=== PATIENT | female | born 1950 | race Caucasian/White ===

== ENCOUNTER 2020-09-09 08:00 | Outpatient (CLI) | payer MEDICARE, BC, SELFPAY | END 2020-09-09 08:01 | disposition home or self-care (01) | LOC: ANHCOVIDVC 08:00 | PROVIDERS: PCP Nurse Practitioner | DX: Z23 Encounter for immunization (principal) | CPT/HCPCS: 0001A; 91300 ==

== ENCOUNTER 2020-09-30 08:02 | Outpatient (CLI) | payer MEDICARE, BC, SELFPAY | END 2020-09-30 08:03 | disposition home or self-care (01) | LOC: ANHCOVIDVC 08:02 | PROVIDERS: PCP Nurse Practitioner | DX: Z23 Encounter for immunization (principal) | CPT/HCPCS: 0002A; 91300 ==

== ENCOUNTER 2022-02-06 10:03 | Outpatient (CLI) | payer MEDICARE, BC, SELFPAY ==
[2022-02-06 20:55] LABS: Alanine Aminotransferase 35 U/L (6-35); Albumin Level 4.4 g/dL (3.5-5.1); Alkaline Phosphatase 81 U/L (38-126); Anion Gap 9 mmol/L (8-16); Aspartate Amino Transferase 48 U/L (14-36); Bilirubin,Total 0.3 mg/dL (0.2-1.3); Blood Urea Nitrogen 12 mg/dL (7-17); Calcium 9.1 mg/dL (8.4-10.2); Carbon Dioxide 28 mmol/L (22-30); Chloride 103 mmol/L (98-107); Cholesterol 210 mg/dL (0-200); Estimated Glomerular Filt Rate 55; Glucose 129 mg/dL (65-110); HDL Direct 109 mg/dL; Potassium 4.5 mmol/L (3.4-5.0); Sodium 140 mmol/L (137-145); Triglycerides 107 mg/dL (<150)
[2022-02-06 20:57] LABS: Basophils Absolute Auto 0.1 K/mm3 (0.0-0.1); Basophils Percent Auto 1.1 % (0.2-1.2); Eosinophils Absolute Auto 0.3 K/mm3 (0-0.3); Eosinophils Percent Auto 6.1 % (0-4.4); Hematocrit 39.4 % (37.0-47.0); Hemoglobin 12.4 g/dL (12.0-15.0); Immature Granulocyte Absolute 0.02 K/mm3 (0.00-0.031); Immature Granulocyte Percent A 0.4 % (0-0.5); Lymphocytes Absolute Auto 1.94 K/mm3 (0.9-3.2); Lymphocytes Percent Auto 36.1 % (18.3-44.2); Mean Corpuscular HGB Conc 31.5 g/dl (32-36); Mean Corpuscular Volume 92.3 fl (80-100); Mean Platelet Volume 10.8 fl (7.4-10.4); Monocytes Absolute Auto 0.5 K/mm3 (0.1-0.6); Monocytes Percent Auto 9.3 % (2.6-8.5); Neutrophils Absolute Auto 2.5 K/mm3 (1.3-6.7); Platelet Count Result 249 k/mm3 (150-375); Red Blood Count 4.27 M/mm3 (4.2-5.4); Red Cell Distribution Width 14.2 % (11.5-14.5); White Blood Count 5.4 K/mm3 (4.5-10.0)
[2022-02-06 21:10] LABS: LDL Cholesterol Direct 62 mg/dL
[2022-02-06 21:52] LABS: Hemoglobin A1C 6.4 % (<5.7)
== END 2022-02-06 10:04 | disposition home or self-care (01) ==
PROVIDERS: PCP Family Medicine; Visit Provider Family Medicine
DX: R73.03 Prediabetes (principal); I10 Essential (primary) hypertension; E78.5 Hyperlipidemia, unspecified
CPT/HCPCS: 36415; 80053; 80061; 83036; 85025

== ENCOUNTER → 2022-02-07 08:35 | Outpatient (CLI) | payer MEDICARE, BC, SELFPAY ==
--- NOTE | ~2022-02-07 | MR_ITS ---
EXAMINATION: MR lumbar spine wo con DATE: 02/07/2022 09:05 INDICATION: Lumbar radicular pain TECHNIQUE: Magnetic resonance imaging (MRI) of the lumbar spine was performed without intravenous con trast. Sequences included sagittal T2-weighted FSE, sagittal T2-weighted FS FSE, sagittal T1-weighted FSE, and axial T2-weighted FSE. COMPARISON: 03/20/2019 FINDINGS: 14 degrees lumbar levoscoliosis. 2 mm retrolisthesis L1 on L2, L2 on L3 and L3 on L4 chronic minimal anterior wedging at T11. 4 caudal thoracic and lumbar vertebral body heights are normal. Chronic Schm orl's node along the superior endplate of L4. Severe disc height loss with degenerative endplate anthony ges at L4-L5. Moderate left-sided predominant disc height loss at L2-L3 and L3-L4. Mild disc height l oss at T11-T12 and L1-L2. Marrow signal is normal aside from mild fibrofatty and fibrovascular degene rative endplate changes at a few levels in the lumbar and lower thoracic spine. The conus medullaris terminates at the cephalad aspect of L1. There is normal signal in the caudal spinal cord. Paraverteb ral soft tissues are unremarkable. The following disc levels are specifically discussed: T11-T12: Disc is mildly bulging. There is mild left and moderate right facet osteoarthritis. There is no neural foraminal stenosis. There is minimal central canal stenosis. T12-L1: Disc is mildly bulging. There is mild bilateral facet joint osteoarthritis. There is no neura l foraminal stenosis. There is minimal central canal stenosis. L1-L2: Disc is mildly bulging. There is mild right facet joint osteoarthritis. There is mild bilatera l neural foraminal stenosis. There is mild central canal stenosis. L2-L3: Disc is bulging. There is mild bilateral facet joint osteoarthritis. There is mild bilateral, right greater than left neural foraminal stenosis. There is mild central canal stenosis. L3-L4: Disc is bulging. There is mild left and mild to moderate right facet joint osteoarthritis. The re is mild left and mild to moderate right neural foraminal stenosis. There is mild to moderate centr al canal stenosis. L4-L5: Disc is mildly bulging. There is moderate bilateral facet joint osteoarthritis. There is moder ate bilateral neural foraminal stenosis. There is mild to moderate central canal stenosis. L5-S1: Disc is mildly bulging. There is moderate right and severe left facet joint osteoarthritis. Th ere is mild left neural foraminal stenosis. There is mild central canal stenosis. IMPRESSION: 1. Mild lumbar levoscoliosis with interval progression in moderate to severe lumbar spondylosis. Reviewed, dictated and finalized at location A. IMPRESSION: 1. Mild lumbar levoscoliosis with interval progression in moderate to severe ainsley mbar spondylosis.
== END ==
PROVIDERS: Visit Provider Nurse Practitioner Family
DX: M41.86 Other forms of scoliosis, lumbar region (principal); M47.816 Spondylosis without myelopathy or radiculopathy, lumbar region
CPT/HCPCS: 72148

== ENCOUNTER → 2022-08-03 11:06 | Outpatient (CLI) | payer MEDICARE, BC, SELFPAY ==
--- NOTE | ~2022-08-03 | MM_ITS ---
EXAMINATION: MM screening manju BI w gama HISTORY: Screening mammogram TECHNIQUE: Craniocaudal and mediolateral oblique 3-D tomosynthesis images were obtained and synthetic 2-D images were generated. CAD analysis was submitted and interpreted. COMPARISON: August 01, 2018, July 30, 2017, October 06, 2015 bilateral screening mammogram examinat ions BREAST PARENCHYMAL COMPOSITION: There are scattered areas of fibroglandular density. FINDINGS: There is no evidence of suspicious mass, calcification, or architectural distortion to sugg est malignancy in either breast. There has been no suspicious interval change. IMPRESSION: 1. No mammographic evidence of malignancy. 2. Recommend routine screening mammography in one year. BI-RADS Category 1: Negative Reviewed, dictated and finalized at location A. 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
--- NOTE | ~2022-08-03 | DEXA_ITS ---
Bone Density Report Name: MOHINI BELTRE Age: 72 Sex: Female Ethnicity: White Date of : 1950 Indication: postmenopausal; screening for osteoporosis; parental hip fracture; height loss; history of glucocorticoids; hysterectomy; Referring Provider: Sharron Blackwell Study: Bone densitometry was performed. Exam Date: August 03, 2022 Accession number: [id number] Bone Density: Region BMD T-score Z-score Classification AP Spine (L1-L4) 0.876 -1.6 0.7 Osteopenia Femoral Neck (Left) 0.586 -2.4 -0.5 Osteopenia Total Hip (Left) 0.871 -0.6 1.0 Normal Femoral Neck (Right) 0.683 -1.5 0.4 Osteopenia Total Hip (Right) 0.889 -0.4 1.2 Normal Total Hip Mean 0.880 -0.5 1.1 Normal World Health Organization criteria for BMD impression classify patients as: Normal (T-score at or above -1.0), Osteopenia (T-score between -1.0 and -2.5), or Osteoporosis (T-score at or below -2.5). 10-year Fracture Risk(1): Major Osteoporotic Fracture 32% Hip Fracture 15% Reported Risk Factors: [place] (), Neck BMD=0.586, BMI=37.3, parental fracture, glucocorticoids (1) FRAX(R) Version 3.08. Fracture probability calculated for an untreated patient. Fracture probability may be lower if the patient has received treatment. Clinical Information Provided by Patient: Parent has had a hip fracture Has taken Glucocorticoids Has used the following medications: Vitamin D, Calcium Has the following medical conditions: Hysterectomy Patient maximum height was 61.5 Menopause Age: 32 No regular weight bearing exercise Does not regularly consume dairy products Drinks caffeinated beverages Onset of menses at age 11 Number of children 2 Impression: The patient has low bone mass, based on the Left Femoral Neck T-score. The patient has an estimated ten-year risk of hip fracture of 15% and an estimated ten-year risk of major fracture of 32%, based on the WHO FRAX algorithm. The patient has risk factors, including: parental hip fracture, history of glucocorticoid therapy. Discussion: BONE DENSITY IS LOW AT ONE OR MORE SKELETAL SITES. THE PATIENT'S BMD AND CLINICAL RISK FACTORS CONTRIBUTE TO THIS PATIENT'S HIGH RISK OF FRACTURE. This patient's lowest T-score is low at one or more skeletal sites. It meets the World Health Organization's (WHO) criteria for ?low bone mass? (T-score between -1.0 and -2.5). The patient's 10-year risk of hip fracture and 10 year risk of a major osteoporotic fracture as calculated by FRAX exceeds the threshold where pharmacological therapy is recommended by the National Osteoporosis Foundation (NOF). However, all treatment decisions require clinical judgment and consideration of individual patient factors, including patient preferences, comorbidities, previous drug use, risk factors not captured in the FRAX mo
== END ==
PROVIDERS: PCP Family Medicine; Visit Provider Nurse Practitioner
DX: Z12.31 Encounter for screening mammogram for malignant neoplasm of breast (principal); Z78.0 Asymptomatic menopausal state; M85.89 Other specified disorders of bone density and structure, multiple sites
CPT/HCPCS: 77063; 77067; 77080

== ENCOUNTER 2022-08-10 11:13 | Outpatient (CLI) | payer MEDICARE, BC, SELFPAY ==
[2022-08-10 12:31] LABS: Kit Draw Collected
== END 2022-08-10 11:14 | disposition home or self-care (01) ==
LOC: ANHGOSHLAB 11:14
PROVIDERS: PCP Family Medicine; Visit Provider Nurse Practitioner
DX: R73.03 Prediabetes (principal); I10 Essential (primary) hypertension; E78.5 Hyperlipidemia, unspecified
CPT/HCPCS: 36415

== ENCOUNTER 2023-02-08 09:02 | Outpatient (CLI) | payer MEDICARE, BC, SELFPAY ==
[2023-02-08 18:23] LABS: Basophils Absolute Auto 0.1 K/mm3 (0.0-0.1); Basophils Percent Auto 1.3 % (0.2-1.2); Eosinophils Absolute Auto 0.3 K/mm3 (0-0.3); Eosinophils Percent Auto 5.1 % (0-4.4); Hematocrit 40.6 % (37.0-47.0); Hemoglobin 12.8 g/dL (12.0-15.0); Immature Granulocyte Absolute 0.01 K/mm3 (0.00-0.031); Immature Granulocyte Percent A 0.2 % (0-0.5); Lymphocytes Absolute Auto 1.79 K/mm3 (0.9-3.2); Lymphocytes Percent Auto 32.8 % (18.3-44.2); Mean Corpuscular HGB Conc 31.5 g/dl (32-36); Mean Corpuscular Hemoglobin 29.4 pg (26-34); Mean Corpuscular Volume 93.1 fl (80-100); Mean Platelet Volume 10.9 fl (7.4-10.4); Monocytes Absolute Auto 0.6 K/mm3 (0.1-0.6); Monocytes Percent Auto 10.6 % (2.6-8.5); Neutrophils Absolute Auto 2.7 K/mm3 (1.3-6.7); Platelet Count Result 246 k/mm3 (150-375); Red Blood Count 4.36 M/mm3 (4.2-5.4); Red Cell Distribution Width 13.5 % (11.5-14.5); White Blood Count 5.5 K/mm3 (4.5-10.0)
[2023-02-08 18:39] LABS: LDL Cholesterol Direct 61 mg/dL
[2023-02-08 18:48] LABS: Alanine Aminotransferase 26 U/L (6-35); Albumin Level 4.5 g/dL (3.5-5.1); Alkaline Phosphatase 80 U/L (38-126); Anion Gap 11 mmol/L (8-16); Aspartate Amino Transferase 39 U/L (14-36); Bilirubin,Total 0.5 mg/dL (0.2-1.3); Blood Urea Nitrogen 28 mg/dL (7-17); Calcium 10.4 mg/dL (8.4-10.2); Carbon Dioxide 26 mmol/L (22-30); Chloride 101 mmol/L (98-107); Cholesterol 195 mg/dL (0-200); Estimated Glomerular Filt Rate 44; Glucose 116 mg/dL (65-110); Potassium 3.5 mmol/L (3.4-5.0); Sodium 138 mmol/L (137-145); Triglycerides 88 mg/dL (<150)
[2023-02-08 18:49] LABS: HDL Direct 111 mg/dL
[2023-02-08 19:11] LABS: Hemoglobin A1C 5.7 % (<5.7)
[2023-02-13 10:41] LABS: Vitamin D 1,25 (OH)2 Total 38 pg/mL (18-72); Vitamin D2 1,25 (OH)2 <8 pg/mL; Vitamin D3 1,25 (OH)2 38 pg/mL
== END 2023-02-08 09:03 | disposition home or self-care (01) ==
PROVIDERS: PCP Family Medicine; Visit Provider Nurse Practitioner Family
DX: E55.9 Vitamin D deficiency, unspecified (principal); I10 Essential (primary) hypertension; R73.03 Prediabetes; E78.5 Hyperlipidemia, unspecified
CPT/HCPCS: 36415; 80053; 80061; 82652; 83036; 85025

== ENCOUNTER 2023-04-16 10:21 | Outpatient (CLI) | payer MEDICARE, BC, SELFPAY ==
--- NOTE | ~2023-04-16 | CT_ITS ---
Clinical Indication: Chest pain CT Scan of the Chest with Contrast: Technique: Contiguous sections were acquired throughout the chest after intravenous administration of 100 cc of Omnipaque 350. Dose reduction technique was used on this scan by utilizing automated expos ure control and iterative reconstruction technique. The dose-length product (DLP) was 631.87 mGy-cm. Findings: There is no evidence of any significant mediastinal, hilar or axillary lymphadenopathy. There is no f illing defect in the pulmonary arterial tree to suggest pulmonary embolus. There is no evidence of ao rtic dissection or aneurysm. No pericardial effusion. Small right pleural effusion and minimal left pleural effusion are present.. There is patchy groundglass pulmonary disease with mild interlobar septal thickening, consistent with pulmonary edema. Images through the upper abdomen reveal moderate to large hiatal hernia. Impression: Mild to moderate pulmonary edema. Small right pleural effusion and minimal left pleural effusion. No pulmonary embolus. Reviewed, dictated and finalized at [facility]. Impression: Mild to moderate pulmonary edema. Small right pleural effusion and minimal left pleural effusion. No pulmonary embolus.
--- NOTE | ~2023-04-16 | XR_ITS ---
Clinical Indication: Shortness of breath PA and lateral views of the chest: Comparison: 07/20/2018 Findings: There is central congestive change with probable minimal central pulmonary edema and minima l bilateral pleural effusions.. Cardiomediastinal silhouette is within normal limits. Bones and soft tissues are unremarkable. Impression: Central congestive change with minimal central pulmonary edema and minimal pleural effusions. Reviewed, dictated and finalized at location . Impression: Central congestive change with minimal central pulmonary edema and minimal pleu ral effusions.
[2023-04-16 11:15] LABS: Estimated Glomerular Filt Rate 49
== END 2023-04-16 10:22 ==
PROVIDERS: PCP Nurse Practitioner Family; Visit Provider Nurse Practitioner Family
DX: R06.02 Shortness of breath (principal); J81.1 Chronic pulmonary edema; J90 Pleural effusion, not elsewhere classified
CPT/HCPCS: 71046; 71275; Q9967

== ENCOUNTER 2023-04-16 11:29 | Outpatient (CLI) | payer MEDICARE, BC, SELFPAY ==
[2023-04-16 12:52] LABS: D Dimer 1.38 ug/mL (<0.48)
[2023-04-16 13:06] LABS: NT Pro B Type Natriuretic Pept 2540 pg/mL (19.9-100)
== END 2023-04-16 11:30 | disposition home or self-care (01) ==
PROVIDERS: PCP Nurse Practitioner Family; Visit Provider Nurse Practitioner Family
DX: R07.9 Chest pain, unspecified (principal); R06.02 Shortness of breath
CPT/HCPCS: 36415; 83880; 85380

== ENCOUNTER 2023-04-16 12:39 | Inpatient (IN) | payer MEDICARE, BC, SELFPAY ==
[2023-04-16] VITALS (13 sets, daily range): BP systolic 130–217; BP diastolic 46–87; PULSE 54–80; RESP 17–21; TEMP 36.3–36.6; O2SAT 88–97; BMI 37.1; BMI 38.7
--- NOTE | ~2023-04-16 | US_ITS ---
EXAMINATION: US venous doppler [facility] DATE: 04/17/2023 16:43 INDICATION: Chest pain. TECHNIQUE: Grayscale ultrasound images without and with compression and Doppler ultrasound images of the bilateral lower extremity veins were obtained. COMPARISON: None. FINDINGS: The visualized portions of right common femoral vein, profunda (deep) femoral vein, femoral vein, pop liteal vein, peroneal veins, posterior tibial veins, and greater saphenous vein outflow are patent. The visualized portions of left common femoral vein, profunda femoral vein, femoral vein, popliteal v ein, peroneal veins, posterior tibial veins, and greater saphenous vein outflow are patent. IMPRESSION: 1. No deep venous thrombosis. Reviewed, dictated and finalized at location E.
--- NOTE | ~2023-04-16 | NM_ITS ---
EXAMINATION: NM bianca stress w perfusion DATE: 04/18/2023 11:34 INDICATION: Chest pain. Congestive heart failure. TECHNIQUE: Rest images were obtained following intravenous administration of 9.4 mCi Tc99m tetrofosmi n (Myoview). The patient was infused intravenously with Lexiscan (regadenoson). Then, 31.1 mCi Tc99m tetrofosmin (Myoview) was administered intravenously, and supine and prone stress images were obtaine d. Data was reconstructed into short axis and horizontal and vertical long axis SPECT images. Gated S PECT images were also obtained. COMPARISON: Chest CT 04/16/2023 FINDINGS: There is no definite reversible or fixed perfusion abnormality to suggest ischemia or infar ction. There is no segmental wall motion abnormality. Left ventricular ejection fraction measures 6 3%. IMPRESSION: 1. No definite ischemia or infarct. 2. Normal left ventricular ejection fraction measuring 63%. Reviewed, dictated and finalized at location E.
--- NOTE | 2023-04-16 12:40 | ECG_ITS ---
Measurements Intervals [place] Rate: 59 P: 67 MT: 143 QRS: 32 QRSD: 89 T: 43 QT: 468 QTc: 465 Interpretive Statements SINUS BRADYCARDIA POSSIBLE LEFT ATRIAL ENLARGEMENT [-0.1mV P WAVE IN V1/V2] NO PREVIOUS ECG AVAILABLE FOR COMPARISON Electronically Signed On 04-16-2023 19:58:11 CDT by Evelyn Christopher M.D.
[2023-04-16 13:13] LABS: Basophils Absolute Auto 0.1 K/mm3 (0.0-0.1); Eosinophils Absolute Auto 0.3 K/mm3 (0-0.3); Eosinophils Percent Auto 4.2 % (0-4.4); Hematocrit 38.7 % (37.0-47.0); Hemoglobin 11.9 g/dL (12.0-15.0); Immature Granulocyte Absolute 0.07 K/mm3 (0.00-0.031); Lymphocytes Absolute Auto 2.04 K/mm3 (0.9-3.2); Lymphocytes Percent Auto 27.9 % (18.3-44.2); Mean Corpuscular HGB Conc 30.7 g/dl (32-36); Mean Corpuscular Hemoglobin 28.7 pg (26-34); Mean Corpuscular Volume 93.3 fl (80-100); Monocytes Absolute Auto 0.7 K/mm3 (0.1-0.6); Monocytes Percent Auto 9.3 % (2.6-8.5); Neutrophils Absolute Auto 4.2 K/mm3 (1.3-6.7); Neutrophils Percent Auto 56.6 % (45.5-73.1); Platelet Count Result 262 k/mm3 (150-375); Red Blood Count 4.15 M/mm3 (4.2-5.4); Red Cell Distribution Width 13.6 % (11.5-14.5); White Blood Count 7.3 K/mm3 (4.5-10.0)
[2023-04-16 13:31] LABS: Alanine Aminotransferase 101 U/L (6-35); Albumin Level 4.3 g/dL (3.5-5.1); Alkaline Phosphatase 113 U/L (38-126); Anion Gap 7 mmol/L (8-16); Aspartate Amino Transferase 32 U/L (14-36); Bilirubin,Total 0.7 mg/dL (0.2-1.3); Blood Urea Nitrogen 17 mg/dL (7-17); Calcium 9.4 mg/dL (8.4-10.2); Carbon Dioxide 28 mmol/L (22-30); Chloride 100 mmol/L (98-107); Estimated CRCL calculation 45 ml/min; Estimated Glomerular Filt Rate 55; Glucose 114 mg/dL (65-110); Lipase 78 U/L (23-300); Sodium 135 mmol/L (137-145)
[2023-04-16 13:37] LABS: Prothrombin Time 13.9 Seconds (11.1-14.7)
[2023-04-16 13:39] LABS: Partial Thromboplastin Time 29.8 SECONDS (22.3-36.8)
[2023-04-16 13:42] LABS: Troponin I 0.034 ng/mL (0.000-0.034)
--- NOTE | 2023-04-16 15:37 | ED.CHESTPAIN ---
HPI - Chest Pain General Chief Complaint: Chest Pain Stated Complaint: CP, SOB Time Seen by Provider: 04/16/23 14:26 History of Present Illness HPI narrative: 72-year-old female presented to the emergency department for evaluation of sternal chest pain. Patient also reports worsening exertional shortness of breath over the course of the last few weeks. Patient did have follow-up with her primary care physician and they were considering that she had CHF. Patient has no prior diagnosis of CHF. Patient has no prior cardiac history Related Data Home Medications Medication Instructions Recorded Confirmed cholecalciferol (vitamin D3) 50 100 mcg PO DAILY 02/19/23 04/16/23 mcg (2,000 unit) capsule ascorbic acid (vitamin C) 1,000 mg 1 g PO DAILY 03/27/23 04/16/23 capsule losartan 50 mg tablet 75 mg PO DAILY 03/27/23 04/16/23 mecobalamin (vitamin B12) 5,000 mcg PO 03/27/23 04/16/23 mcg disintegrating tablet albuterol sulfate 90 mcg/actuation 2 puff inhalation Q8H PRN 04/16/23 04/16/23 aerosol inhaler Shortness Of Breath Or Wheezing Allergies Allergy/AdvReac Type Severity Reaction Status Date / Time clavulanic acid Allergy Severe vomiting, Verified 04/16/23 08:46 [From Augmentin] diarrhea yellow fever vaccine live Allergy Severe SWELLING, Verified 04/16/23 08:46 JOINT PAIN clindamycin Allergy Intermediate Unknown Verified 04/16/23 08:46 latex Allergy Mild Swelling Verified 04/16/23 08:46 amoxicillin Allergy Unknown Unknown Verified 04/16/23 08:46 tetanus and diphtheria Allergy Unknown Unknown Verified 04/16/23 08:46 toxoids Tetanus Vaccines and Toxoid Allergy Unknown Unknown Verified 04/16/23 08:46 Review of Systems Review of Systems: All systems reviewed & are unremarkable except as noted in HPI and below PMFSH Past Medical History Medical History Anxiety Chronic lumbar pain HLD (hyperlipidemia) (~2001) Hypertension Migraines (~1991) Osteoarthritis, multiple sites Prediabetes (~2018) Stage 3 chronic kidney disease (~2018) Surgical History Surgical History Entrapment of right ulnar nerve at elbow (~2015) H/O arthroscopic knee surgery (~2002) left and right knee H/O: hysterectomy (~1983) w/ left oophorectomy History of carpal tunnel surgery of right wrist (~2015) History of cataract surgery (~2015) bilateral Family History Family History Mother , @ 92 Family history of elevated blood lipids Hypertension Father , @ 73 Family history of throat cancer Family history of malignant neoplasm of esophagus Sibling , @ 67 Hepatitis C Social History Social History Social History: , lives alone. One daughter, several grandchildren. She enjoys traveling with her sister, usually long car trips across the country. They travel several times a year. Caffeine- occasionally Smoking status: Never smoker Second hand tobacco smoke exposure: Yes (Dad smoked when she was a kid) Alcohol intake: never Substance use: never Substance use type: does not use Lack of Transportation: No Lack of Food: Never True Current Housing: I Have Housing Concerned About Future Housing: No Difficulty Paying Gas/Electric Bills: No Difficulty Paying for Meds: No Currently Unemployed: No Education: High School Diploma/GED Difficulty w/ Childcare or Family Care: No Living arrangements: with family Additional living arrangements comments: Sister Occupation/Education: retired Gender identity (if verbalized by the patient): Female Exam Narrative: APPEARANCE: Well appearing, no pain, no distress, well-nourished. HEAD: normocephalic, atraumatic. EYES: PERRLA/EOMI, conjunctivae clear. NOSE: Normal no drainage NECK: [place]
[2023-04-16 15:43] LABS: NT Pro B Type Natriuretic Pept 2600 pg/mL (19.9-100)
[2023-04-16] MEDS: FUROSEMIDE INJ 40 MG/4 ML VIAL IV PUSH (16:35)
[2023-04-16] MEDS: KETOROLAC 15 MG/ML VIAL (*BKC) IV PUSH (16:36)
[2023-04-16 17:12] LABS: Troponin I 0.035 ng/mL (0.000-0.034)
[2023-04-16] MEDS: NITROGLYCERIN OINTMENT 1 INCH DOSE TRANSDERM (18:04)
--- NOTE | 2023-04-16 19:55 | PM.IMHP ---
H&P: HPI History of Present Illness Date/Time: 04/16/23 19:55 Chief Complaint: chest pain Narrative: This is a 72-year-old female with past medical history significant for anxiety, chronic lumbar pain, dyslipidemia, hypertension, migraine headache, osteoarthritis, chronic kidney disease. Patient presents to the emergency room due to retrosternal chest pain rate set at 9/10 intensity nonradiating no nausea no vomiting no dizziness no lightheadedness no syncope or near syncope. Patient returns from a trip to [place] she had been seen at the at the urgent care due to cough and shortness of breath was given a breathing treatment. Patient also had a fever at around that time which has not repeat. Has had a cough which is nonproductive. Pain is worse with deep inspiration, patient received breathing treatment in the emergency room. Was rule out for acute pulmonary embolism with CT angiogram of the chest. Clinical Indication: Shortness of breath ?PA and lateral views of the chest: Comparison: 07/20/2018 Findings: There is central congestive change with probable minimal central pulmonary edema and minimal bilateral pleural effusions..? Cardiomediastinal silhouette is within normal limits. Bones and soft tissues are unremarkable. ? Impression: ? Central congestive change with minimal central pulmonary edema and minimal pleural effusions. [address] [place] [address] CT Scan Report Signed Patient: Ashlie Lees : 1950 MR#: [id number] Age/Sex: 72 / F Acct:[id number] Loc: [facility]? ? ADM Date: 04/16/23Attending Dr: Sharron Esquivel APRN Ordering Physician: Sharron Esquivel APRN Date of Service: 04/16/23 Procedure(s): CTA chest PE protocol Accession Number(s): [id number] cc: Sharron Esquivel APRN~ Clinical Indication: Chest pain CT Scan of the Chest with Contrast: Technique: Contiguous sections were acquired throughout the chest after intravenous administration of 100 cc of Omnipaque 350. Dose reduction technique was used on this scan by utilizing automated exposure control and iterative reconstruction technique. The dose-length product (DLP) was 631.87 mGy-cm. Findings: There is no evidence of any significant mediastinal, hilar or axillary lymphadenopathy. There is no filling defect in the pulmonary arterial tree to suggest pulmonary embolus. There is no evidence of aortic dissection or aneurysm. No pericardial effusion. Small right pleural effusion and minimal left pleural effusion are present.. There is patchy groundglass pulmonary disease with mild interlobar septal thickening, consistent with pulmonary edema. Images through the upper abdomen reveal moderate to large hiatal hernia. Impression: Mild to moderate pulmonary edema. Small right pleural effusion and minimal left pleural effusion. No pulmonary embolus. ekg Rate 59 AR 143 QRSd 89 QT 468 QTc 465 --[place]-- P 67 QRS 32 T 43 SINUS BRADYCARDIA POSSIBLE LEFT ATRIAL ENLARGEMENT [-0.1mV P WAVE IN V1/V2] NO PREVIOUS ECG AVAILABLE FOR COMPARISON Electronically Signed On 04-16-2023 19:58:11 CDT by Evelyn Campastiven Review of Systems Review of Systems: Cough, retrosternal chest pain. Constitutional: Constitutional: Denies chills, Denies fatigue, Reports fever(s) (X1 a week ago), Denies malaise, Denies poor appetite and Denies weakness Eyes: Eyes: Denies change in vision ENT: Denies dysphagia, Denies vertigo, Denies dizziness and Denies odynophagia Cardiovascular: Cardiovascular: Reports chest pain, Denies irregular heart rhythm, Denies leg edema, Denies lightheadedness, Denies radiating jaw, neck or arm pain, Denies palpitations, Reports dyspnea and Reports dyspnea on exertion Respiratory: Respiratory: Reports cough, Reports pain on inspiration and Reports dyspnea Gastrointestinal: Gastrointestinal: Denies abdominal pain, Denies dyspepsia, Denies h
[2023-04-16 20:13] LABS: Troponin I 0.035 ng/mL (0.000-0.034)
--- NOTE | 2023-04-16 20:49 | ADMGEN ---
This patient, Ashlie Lees, was admitted to IMU Room 213-01. Patient/family oriented to hospital policies and general routines including ID bracelet, bed and alarms, visiting hours, pain management, procedures, bathroom and other care routines, personal items, smoking policy, room service/diet, and visiting hours. Information on how to activate the Rapid Response Team has been discussed. Patient/Family are encouraged to report perceived risks to care and to ask questions if they do not understand what they are told or what they should do.
[2023-04-17] VITALS (16 sets, daily range): BP systolic 141–179; BP diastolic 51–65; PULSE 55–83; RESP 18; TEMP 36.1–36.4; O2SAT 91–98
--- NOTE | 2023-04-17 | ECHO_ITS ---
Patient Info Name: Ashlie Lees Age: 72 years : 1950 Gender: Female Ht: 60 in Wt: 199 lbs BSA: 2.00 m2 HR: 91 bpm BP: 164 / 86 mmHg Heart Rhythm: Sinus Rhythm Technical Quality: Good Exam Date: 04/17/2023 10:14 AM Exam Location: [facility] Patient Status: Inpatient Admit Date: 04/17/2023 Staff Ordering Physician: Justin Romeo MD Homebirth Midwife: Duong Cook RDCS Attending Provider: Suresh Lawrence MD Referring Physician: Agueda QUICK; Exam Type: CA echo doppler color flow Study Info Indications - chest pain/sob Complete two-dimensional, color flow and Doppler transthoracic echocardiogram is performed. Summary 1. Complete two-dimensional, color flow and Doppler transthoracic echocardiogram is performed. 2. Normal left ventricular size with borderline concentric hypertrophy. Good systolic function of all segments with no segmental wall motion abnormalities. Ejection fraction 65%. Grade 1 diastolic dysfunction is noted. 3. There is mild aortic valve stenosis with a peak velocity of 242 cm/s, mean gradient of 15 mmHg, and aortic valve area of 1.4 cm2. Mild to moderate aortic valve calcification. For valve not well visualized. 4. There is mild aortic valve regurgitation. 5. There is mild to moderate mitral valve regurgitation. 6. There is mild tricuspid valve regurgitation. 7. No pulmonary hypertension, estimated pulmonary arterial systolic pressure is 28 mmHg. 8. Left atrial chamber dimension is moderately enlarged. 9. Echodense structure on the atrial septum, nonmobile, most likely lipomatous hypertrophy of the atrial septum or extension of the mitral annular calcification. Doubt further evaluation needed. 10. Normal sinus rhythm. Left Ventricle Left ventricular chamber dimension is normal. Left ventricular systolic function is normal, estimated at 60-65%. There is no increased left ventricular wall thickness. Left ventricular septal wall motion is normal. The left ventricular diastolic function is grade I diastolic dysfunction. Right Ventricle Right ventricular chamber dimension is normal. Right ventricular systolic function is normal. Left Atria Left atrial chamber dimension is moderately enlarged. Right Atria Right atrial chamber dimension is normal. Aortic Valve The aortic valve is not well visualized. There is no aortic valve sclerosis. There is mild aortic valve stenosis with a peak velocity of 242 cm/s, mean gradient of 15 mmHg, and aortic valve area of 1.4 cm2. Mild to moderate aortic valve calcification. For valve not well visualized. There is mild aortic valve regurgitation. There is mild aortic valve calcification. Pulmonic Valve The pulmonic valve is normal. There is no pulmonic valve stenosis. There is no pulmonic regurgitation. Mitral Valve The mitral valve has normal leaflets. There is no mitral valve stenosis. There is mild to moderate mitral valve regurgitation. The mitral valve annulus is moderately calcified. Tricuspid Valve The tricuspid valve leaflets are normal. There is no significant tricuspid valve stenosis. There is mild tricuspid valve regurgitation. No pulmonary hypertension, estimated pulmonary arterial systolic pressure is 28 mmHg. Pericardium/Pleural The pericardium appears normal. There is no pericardial effusion. Inferior Vena Cava Normal inferior vena cava with >50% collapse upon inspiration consistent with Empty right atrial pressure, 10 mmHg. Aorta The aortic root size at the sinus of Valsalva is normal. The prox ascending aorta size is normal. Left
[2023-04-17] MEDS: ACETAMINOPHEN 500 MG TABLET 1000 MG PO ×3 (04:06→17:36)
--- NOTE | 2023-04-17 11:06 | PM.CNCAR ---
Assessment and Plan Assessment and plan (1) Acute diastolic CHF (congestive heart failure): Code(s): I50.31 - Acute diastolic (congestive) heart failure Status: Acute Assessment and Plan: Patient presents for shortness of breath and was found to have acute diastolic CHF, new onset. --continue furosemide 40 mg IV push b.i.d. --daily BMP --control blood pressure --Jardiance --Lexiscan stress test to evaluate for underlying coronary disease as a contributing factor (2) Chest pain: Qualifiers: Chest pain type: unspecified Qualified Code(s): R07.9 - Chest pain, unspecified Code(s): R07.9 - Chest pain, unspecified Status: Acute Assessment and Plan: Pleuritic chest pain for the past week with a mild cough. Chest wall tenderness consistent with costochondritis. No clinical evidence of pericarditis or myocarditis. --symptomatic relief with Tylenol/Tramadol (3) Cough: Code(s): R05.9 - Cough, unspecified Status: Acute Assessment and Plan: Prob 2nd CHF, possibly a viral illness --COVID swab (4) Hypertension: Qualifiers: Hypertension type: primary hypertension Qualified Code(s): I10 - Essential (primary) hypertension Code(s): I10 - Essential (primary) hypertension Status: Acute Assessment and Plan: Currently not at goal --continue furosemide, losartan, atenolol and follow (5) Aortic stenosis: Code(s): I35.0 - Nonrheumatic aortic (valve) stenosis Status: Acute Assessment and Plan: Mild aortic stenosis and [id number] mitral regurgitation, not contributing to current illness --annual echocardiogram (6) Stage 3 chronic kidney disease: Onset Date: ~2018 Qualifiers: Chronic kidney disease stage 3 subtype: stage 3a (GFR 45-59) Qualified Code(s): N18.31 - Chronic kidney disease, stage 3a Code(s): N18.3 - Chronic kidney disease, stage 3 (moderate) Status: Chronic Assessment and Plan: --daily BMP History of Present Illness History of Present Illness Consult date/time: 04/17/23 11:06 Reason For Visit: New onset CHF/Elevated Troponin/Chest Pain Narrative: Ashlie Lees is a 72-year-old female whom I was asked to see at the request of Dr. Darwin Bañuelos for my advice and opinion regarding new onset of congestive heart failure, in consultation. She has history of hypertension, dyslipidemia, CKD, and anxiety. The patient recently was visiting [place] and last week developed knife-like chest pain, a dry cough and shortness of breath. She went to urgent care in [place] but nothing much was found. She continued to have constant pleuritic pain, worse standing, better lying down, which shortness of breath and feeling wiped out. Recent onset of lower extremity edema. No PND orthopnea. she came to the emergency room with 9 out 10 chest pain last night. She has been found have congestive heart failure. Blood pressure has been 170-212/60-70 on admission. She is getting IV Lasix with improvement of her lower extremity edema. Nonsmoker, no strong family history of heart disease. States she has not been checked for COVID. Troponins: 0.034, 0.035, 0.035 ProBNP 2600, GFR 45, creatinine 1.0 04/16/2023 EKG at 12:49 p.m.: NSR rate 59, left atrial enlargement, no ischemic changes Chest x-ray: Central congestive change with minimal a CHF and effusions. Personally reviewed CT chest: Mild to moderate pulmonary edema, small right pleural effusion, no PE. Hiatal hernia. Echo: EF 65%, diastolic dysfunction, mild aortic stenosis, [id number]-[id number]-[id number] mitral regurgitation Review of Systems Constitutional: Constitutional: Reports difficulty sleeping, Reports fatigue, Reports fever(s) (Questionable low-grade fever) and Reports lethargy Eyes: Eyes: Reports no additional eye complaints Comments: Wears glasses ENT: Denies epistaxis Cardiovascular: Cardiovascula
[2023-04-17] MEDS: PANTOPRAZOLE 40 MG TABLET PO ×2 (12:28→20:50)
[2023-04-17] MEDS: FUROSEMIDE INJ 40 MG/4 ML VIAL IV PUSH ×2 (12:28→20:52)
[2023-04-17] MEDS: EMPAGLIFLOZIN 10 MG TABLET PO (14:16)
--- NOTE | 2023-04-17 15:34 | PM.IMPN ---
Progress Note: A&P Assessment and Plan (1) New onset of congestive heart failure: Code(s): I50.9 - Heart failure, unspecified Status: Acute Assessment and Plan: Patient presents with chest pain and found to have acute diastolic CHF. EKG showing normal sinus and possible LAE. CXR showing pulmonary edema. DDimer was positive so CTA chest ordered showing mild-moderate pulmonary edema and bilateral small pleural effusions. No PE. BNP 2600. Troponin elevated to 0.035 but flat and felt related to CHF. Cardiology consulted and appreciate their input. Echo showing EF 65%, Grade I diastolic dysfunction, mild-moderate MR and echodense structure on the atrial septum felt to be benign. Etiology could be related to poor controlled BP. Started on lasix IV and Empagliflozin. Crestor and losartan continued. Also remains on Atenolol. Monitor fluid balance and daily weights. (2) Chest pain: Qualifiers: Chest pain type: unspecified Qualified Code(s): R07.9 - Chest pain, unspecified Code(s): R07.9 - Chest pain, unspecified Status: Acute Assessment and Plan: Patient with pleuritic type CP. Worse with inspiration and movement. CP is constant. CTA negative for PE. Check LE dopplers given +DDimer and recent travel. Albuterol inhaler available prn. Cardiology following. Plan for lexiscan stress test. (3) Exertional dyspnea: Code(s): R06.09 - Other forms of dyspnea Status: Acute Assessment and Plan: Likely a combination of asthma and congestive heart failure. Also with cough - check COVID Other treatment as above (4) Chronic lumbar pain: Code(s): M54.50 - Low back pain, unspecified; G89.29 - Other chronic pain Status: Acute Assessment and Plan: Controlled. Continue Tylenol p.r.n. (5) Hypertension: Qualifiers: Hypertension type: primary hypertension Qualified Code(s): I10 - Essential (primary) hypertension Code(s): I10 - Essential (primary) hypertension Status: Acute Assessment and Plan: Patient's blood pressure was reviewed on 04/17. Blood pressure remains poorly controlled. Noncompliant with her home meds? Noncompliant with diet while on vacation? Poorly controlled HTN? Will resume home medications. Adjust medications (6) Stage 3 chronic kidney disease: Onset Date: ~2019 Qualifiers: Chronic kidney disease stage 3 subtype: stage 3a (GFR 45-59) Qualified Code(s): N18.31 - Chronic kidney disease, stage 3a Code(s): N18.3 - Chronic kidney disease, stage 3 (moderate) Status: Chronic Assessment and Plan: BUN and creatinine at patient's baseline Follow Plan DVT prophylaxis - Lovenox Code status - Full Subjective Date/time seen: 04/17/23 15:34 Interval history: 72yo female with CKD, anxiety, pre-DM and HTN here for chest pain. Assuming care. Chart reviewed. patient slept poorly. Had a headache but better with Tylenol. Still having constant substernal CP. CP is pleurtic and positional (worse with standing). Also worse with walking. No radiation to the pain. Has a dry cough. Just came back from [place]. Exam Narrative: AF 97.6 206/56 83 17 96% ra Gen - NARD Chest - CTA bilaterally, nml RR CV - RRR S1/S2 with 2/6 systolic murmur loudest USB Abd - Soft, NT/ND, Positive BS Ext - No pedal edema. 2+ DP bilaterally Neuro - Alert and oriented. Nonfocal exam. Psych - Nml mood and affect Skin - Warm and dry Objective Data Vital Signs Vital Signs: Vital Signs - 24 hr 04/16/23 16:33 04/16/23 18:05 04/16/23 20:06 Temperature Pulse Rate 57 L 56 L 80 Respiratory Rate 17 19 Blood Pressure 169/60 H 130/87 Pulse Oximetry 97 Oxygen Delivery Oxygen Flow Rate 04/16/23 21:17 04/16/23 20:15 04/16/23 21:38 Temperature 97.5 F L Pulse Rate 63 63 Respiratory Rate 18 Blood Pressure 190/49 H Pulse Oximetry 94 Oxygen Delivery Room
[2023-04-17] MEDS: ENOXAPARIN 40 MG/0.4 ML SYRINGE SUB-Q (16:16)
[2023-04-17 17:03] LABS: Influenza A QL RT-PCR Negative (Negative); Influenza B QL RT-PCR Negative (Negative); RSV RNA, RT-PCR Negative (Negative); SARS-CoV-2 RNA PCR Negative (Negative)
[2023-04-17] MEDS: CITALOPRAM HYDROBROMIDE 20 MG TABLET 40 MG PO (20:49)
[2023-04-17] MEDS: ASCORBIC ACID 500 MG TABLET 1000 MG PO (20:49)
[2023-04-17] MEDS: ROSUVASTATIN 10 MG TABLET 40 MG PO (20:50)
[2023-04-17] MEDS: CHOLECALCIFEROL 1,000 UNITS TABLET 2000 UNITS PO (20:51)
[2023-04-17] MEDS: atenoloL 50 MG TABLET PO (20:51)
[2023-04-17] MEDS: CYANOCOBALAMIN 1,000 MCG TABLET 5000 MCG PO (20:51)
[2023-04-17] MEDS: LOSARTAN POTASSIUM 25 MG TABLET 75 MG PO (20:52)
[2023-04-18] VITALS: BP 148/59; PULSE 52; PULSE 54; RESP 18; TEMP 36.4; O2SAT 95
[2023-04-18 04:00] VITALS: BP 185/56; PULSE 55; PULSE 56; RESP 18; TEMP 36.5; O2SAT 93; O2SAT 95
[2023-04-18 04:44] LABS: Anion Gap 7 mmol/L (8-16); Blood Urea Nitrogen 17 mg/dL (7-17); Carbon Dioxide 33 mmol/L (22-30); Chloride 97 mmol/L (98-107); Estimated CRCL calculation 32 ml/min; Estimated Glomerular Filt Rate 37; Glucose 118 mg/dL (65-110); Potassium 3.3 mmol/L (3.4-5.0); Sodium 137 mmol/L (137-145)
[2023-04-18 08:00] VITALS: PULSE 60; PULSE 62; RESP 18; O2SAT 97
--- NOTE | 2023-04-18 08:00 | EST_ITS ---
Patient Info Name: Ashlie Lees Age: 72 years : 1950 Gender: Female Ht: 60 in Wt: 190 lbs BSA: 1.96 m2 HR: 62 bpm BP: 167 / 77 mmHg Heart Rhythm: Sinus Rhythm Exam Date: 04/18/2023 10:02 AM Exam Location: [facility] Patient Status: Inpatient Admit Date: 04/17/2023 Staff Ordering Physician: Evelyn Christopher MD Attending Provider: Suresh Lawrence MD Exercise Technologist: Brenda Kate, FALGUNI Nurse: Holli Ruffin APN Exam Type: CA stress bianca w NM Study Info Indications R07.89 - Other chest pain A regadenoson stress test was performed. Summary 1. No abnormal ST-T wave changes with lexiscan. 2. Nuclear test results to follow. Protocol: Lexiscan Stress ECG Details Stage: REST Duration (min): 4 min : 26 sec HR (bpm): 63 SBP (mmHg): 167 DBP (mmHg): 77 Stage: REST Duration (min): 8 min : 48 sec HR (bpm): 63 SBP (mmHg): 167 DBP (mmHg): 77 Stage: STAGE 1 Duration (min): 0 min : 59 sec HR (bpm): 76 SBP (mmHg): 148 DBP (mmHg): 72 Stage: RECOVERY Duration (min): 1 min : 0 sec HR (bpm): 83 SBP (mmHg): 148 DBP (mmHg): 72 Stage: RECOVERY Duration (min): 2 min : 0 sec HR (bpm): 77 SBP (mmHg): 148 DBP (mmHg): 72 Stage: RECOVERY Duration (min): 3 min : 0 sec HR (bpm): 74 SBP (mmHg): 148 DBP (mmHg): 72 Stage: RECOVERY Duration (min): 3 min : 38 sec HR (bpm): 69 SBP (mmHg): 186 DBP (mmHg): 73 Rest HR: 63 bpm Peak HR: 85 bpm Rest Sys BP: 167 mmHg Peak Sys BP: 186 mmHg Max Pred HR: 148 bpm % Max Pred HR: 57 % Target HR: 126 bpm Max RPP: 15,810 bpm*mmHg BP Response: Normal blood pressure response Termination Reason: Completed protocol Cardiac Symptoms: None Total Time: 1 min : 0 sec Rest Donato BP: 77 mmHg Peak Donato BP: 73 mmHg Total Dose: 0.4 mg Resting ECG Normal sinus rhythm - cannot rule out old inferior OK. Stress ECG No abnormal ST/T wave changes with exercise. Arrhythmias None. Report Signatures
[2023-04-18 09:01] VITALS: BP 151/61; PULSE 62; RESP 18; TEMP 36.1; O2SAT 97
[2023-04-18] MEDS: PANTOPRAZOLE 40 MG TABLET PO (09:13)
[2023-04-18] MEDS: EMPAGLIFLOZIN 10 MG TABLET PO (09:13)
[2023-04-18] MEDS: ENOXAPARIN 40 MG/0.4 ML SYRINGE SUB-Q (09:13)
[2023-04-18] MEDS: FUROSEMIDE INJ 40 MG/4 ML VIAL IV PUSH (09:14)
--- NOTE | 2023-04-18 11:14 | PM.PNCARD ---
Progress Note: A&P Assessment and Plan (1) Acute diastolic CHF (congestive heart failure): Code(s): I50.31 - Acute diastolic (congestive) heart failure Status: Acute Assessment and Plan: Patient presents for shortness of breath and was found to have acute diastolic CHF, new onset. --Can shift to p.o. furosemide today --daily BMP --control blood pressure --Jardiance --Will add spironolactone, too, as her BP remains elevated --Lexiscan stress test negative for any ischemia, EF 63% (2) Chest pain: Qualifiers: Chest pain type: unspecified Qualified Code(s): R07.9 - Chest pain, unspecified Code(s): R07.9 - Chest pain, unspecified Status: Acute Assessment and Plan: Pleuritic chest pain for the past week with a mild cough. Chest wall tenderness consistent with costochondritis. No clinical evidence of pericarditis or myocarditis. --symptomatic relief with Tylenol/Tramadol (3) Cough: Code(s): R05.9 - Cough, unspecified Status: Acute Assessment and Plan: Prob 2nd CHF, possibly a viral illness --COVID swab (4) Hypertension: Qualifiers: Hypertension type: primary hypertension Qualified Code(s): I10 - Essential (primary) hypertension Code(s): I10 - Essential (primary) hypertension Status: Acute Assessment and Plan: Currently not at goal --continue furosemide, losartan, atenolol. Will add spironolactone (5) Aortic stenosis: Code(s): I35.0 - Nonrheumatic aortic (valve) stenosis Status: Acute Assessment and Plan: Mild aortic stenosis and xjys-xb-gaonrwzx mitral regurgitation, not contributing to current illness --annual echocardiogram (6) Stage 3 chronic kidney disease: Onset Date: ~2018 Qualifiers: Chronic kidney disease stage 3 subtype: stage 3a (GFR 45-59) Qualified Code(s): N18.31 - Chronic kidney disease, stage 3a Code(s): N18.3 - Chronic kidney disease, stage 3 (moderate) Status: Chronic Assessment and Plan: --daily BMP Subjective Date/time seen: 04/18/23 11:14 Interval history: Cardiology follow up for CHF, chest pain Feeling well today and does not have any complaints. No chest pain. Review of Systems Constitutional: Constitutional: Reports difficulty sleeping, Reports fatigue, Reports fever(s) (Questionable low-grade fever) and Reports lethargy Eyes: Eyes: Reports no additional eye complaints ENT: Denies epistaxis Cardiovascular: Cardiovascular: Reports chest pain, Reports pedal edema, Denies lightheadedness, Reports dyspnea and Reports dyspnea on exertion Respiratory: Respiratory: Denies chest congestion, Reports cough, Reports dyspnea and Reports dyspnea on exertion Gastrointestinal: Gastrointestinal: Denies abdominal pain and Denies hematochezia Genitourinary: Genitourinary: Denies hematuria Musculoskeletal: Musculoskeletal: Reports no additional musculoskeletal complaints Integumentary/Breasts: Skin/Breast: Reports system reviewed and no additional complaints, except as docu Neurologic: Reports system reviewed and no additional complaints, except as documented, Denies behavioral changes and Denies confusion Psychiatric: Psychiatric: Denies behavioral changes and Denies confusion Endocrine: Endocrine: Reports fatigue Exam Const: General: cooperative, healthy appearing and comfortable; No confusion Orientation/consciousness: oriented to person, patient oriented x3 and No confusion HENMT: Mouth: Yes moist mucous membranes Eyes: General: appearance normal, both eyes and all related structures EOM: EOMs intact bilaterally Neck: Neck: supple and no JVD Thyroid: thyroid normal Carotids: bruit Other: Mild bilateral carotid bruits versus transmitted aortic stenosis murmur. Resp: Effort & Inspection: normal respiratory effort Auscultation: clear to auscultation bilaterally Cardio: Rate: regular rate Rhythm: re
[2023-04-18 11:45] VITALS: BP 149/64; PULSE 67; RESP 18; TEMP 36.3; O2SAT 96
[2023-04-18] MEDS: SPIRONOLACTONE 25 MG TABLET PO (11:55)
[2023-04-18] MEDS: ACETAMINOPHEN 500 MG TABLET 1000 MG PO (11:55)
[2023-04-18 12:00] VITALS: PULSE 64
--- NOTE | 2023-04-18 13:40 | PM.DS ---
DS: Admitting Diagnosis Discharge Date 04/18/23 Admitting Diagnosis Shortness of breath DS: Discharge Diagnosis Discharge Diagnosis (1) New onset of congestive heart failure: Code(s): I50.9 - Heart failure, unspecified Status: Acute (2) Chest pain: Qualifiers: Chest pain type: unspecified Qualified Code(s): R07.9 - Chest pain, unspecified Code(s): R07.9 - Chest pain, unspecified Status: Acute (3) Exertional dyspnea: Code(s): R06.09 - Other forms of dyspnea Status: Acute (4) Chronic lumbar pain: Code(s): M54.50 - Low back pain, unspecified; G89.29 - Other chronic pain Status: Acute (5) Hypertension: Qualifiers: Hypertension type: primary hypertension Qualified Code(s): I10 - Essential (primary) hypertension Code(s): I10 - Essential (primary) hypertension Status: Acute (6) Stage 3 chronic kidney disease: Onset Date: ~2018 Qualifiers: Chronic kidney disease stage 3 subtype: stage 3a (GFR 45-59) Qualified Code(s): N18.31 - Chronic kidney disease, stage 3a Code(s): N18.3 - Chronic kidney disease, stage 3 (moderate) Status: Chronic DS: Summary Hospital Course Reason for hospitalization: 72yo female with CKD, anxiety, pre-DM and HTN here for chest pain. Please see H&P for details. Hospital Course: Patient presents with chest pain and found to have acute diastolic CHF. EKG showing normal sinus and possible LAE. CXR showing pulmonary edema. DDimer was positive so CTA chest ordered showing mild-moderate pulmonary edema and bilateral small pleural effusions. No PE. BNP 2600. Troponin elevated to 0.035 but flat and felt related to CHF. Cardiology consulted and appreciate their input. Echo showing EF 65%, Grade I diastolic dysfunction, mild-moderate MR and echodense structure on the atrial septum felt to be benign. Etiology of CHF could be related to poor controlled BP. She was started on Lasix IV and Empagliflozin. Crestor and losartan were continued. Also remained on Atenolol. Patient with pleuritic type CP. Worse with inspiration and movement as well as tender to touch. CP is constant. CTA negative for PE. LE dopplers negative. She underwent Lexiscan stress test that showed no definitive ischemia or infarct. Normal LV EF 63%. For her exertional dyspnea, likely a combination of asthma and congestive heart failure. COVID, influenza and RSV negative. She had clinical improvement. Spironolactone added. She overall did well adn was able to be discharged home on 04/18/23. Status at Discharge Cognitive/behavioral status at discharge: Stable Time Spent with Patient Time attestation: Total time spent providing and/or coordinating discharge services: 35 minutes Time spent: Greater than 30 minutes Exam Narrative: AF 97.3 149/64 64 18 96% ra Gen - NARD Chest - CTA bilaterally, nml RR CV - RRR S1/S2 Abd - Soft, NT/ND, Positive BS Ext - No pedal edema Psych - Nml mood and affect Skin - Warm and dry DS: Data Data Completed and Pending Labs on day of discharge: Labs from last 24 hours 04/18/23 04/17/23 04:14 16:15 Sodium 137 Potassium 3.3 L Chloride 97 L Carbon Dioxide 33 H Anion Gap 7 L BUN 17 Creatinine 1.40 H Estim Creat Clear Calc 32 Estimated GFR 37 L Glucose 118 H Calcium 9.0 Influenza A (RT-PCR) Negative Influenza B (RT-PCR) Negative RSV (RT-PCR) Negative SARS-CoV-2 RNA (RT-PCR) Negative Discharge Plan Discharge Attending physician on discharge: Luigi Bonilla Consulting providers: Cali Garcia Discharging Clinician: Luigi Bonilla Anticipated Discharge Date/Time: 04/18/23 13:47 Patient Disposition: Home, Self-Care Activity: no straining and as tolerated Diet: heart healthy Discharge Instructions: Check blood pressure 1 to 2 times a day. Record and bring into your doctor for review. Call you
== END 2023-04-18 14:23 | disposition home or self-care (01) | DRG 291 ==
LOC: ANHED 17:46 → ANHIMU 19:57
PROVIDERS: Emergency Medicine; Internal Medicine Cardiovascular Disease; Admitting Provider Chiropractor; Emergency Provider Emergency Medicine; PCP Nurse Practitioner Family; Visit Provider Internal Medicine
DX: I13.0 Hypertensive heart and chronic kidney disease with heart failure and stage 1 through stage 4 chronic kidney disease, or unspecified chronic kidney disease (principal); I50.31 Acute diastolic (congestive) heart failure; N18.31 Chronic kidney disease, stage 3a; I35.0 Nonrheumatic aortic (valve) stenosis; E78.5 Hyperlipidemia, unspecified; M94.0 Chondrocostal junction syndrome [Tietze]; M19.90 Unspecified osteoarthritis, unspecified site; M54.50 Low back pain, unspecified; G89.29 Other chronic pain; R73.03 Prediabetes; F41.9 Anxiety disorder, unspecified; Z20.822 Contact with and (suspected) exposure to COVID-19
CPT/HCPCS: 36415; 78452; 80048; 80053; 83690; 83880; 84484; 85025; 85380; 85610; 85730; 87637; 93005; 93017; 93306; 93970; 96374; 96375; 99285; A9270; A9502; G0378; J1650; J1885; J1940; J2785

== ENCOUNTER 2023-05-01 09:07 | Outpatient (CLI) | payer MEDICARE, BC, SELFPAY ==
[2023-05-01 19:52] LABS: Albumin Level 4.5 g/dL (3.5-5.1); Anion Gap 11 mmol/L (8-16); Blood Urea Nitrogen 40 mg/dL (7-17); Calcium 9.9 mg/dL (8.4-10.2); Carbon Dioxide 30 mmol/L (22-30); Chloride 93 mmol/L (98-107); Estimated Glomerular Filt Rate 24; Glucose 145 mg/dL (65-110); Phosphorus 5.2 mg/dL (2.5-4.5); Potassium 3.5 mmol/L (3.4-5.0); Sodium 134 mmol/L (137-145)
[2023-05-01 19:56] LABS: Alanine Aminotransferase 22 U/L (6-35); Albumin Level 4.5 g/dL (3.5-5.1); Alkaline Phosphatase 71 U/L (38-126); Anion Gap 9 mmol/L (8-16); Aspartate Amino Transferase 35 U/L (14-36); Bilirubin,Total 0.7 mg/dL (0.2-1.3); Blood Urea Nitrogen 42 mg/dL (7-17); Calcium 9.7 mg/dL (8.4-10.2); Carbon Dioxide 33 mmol/L (22-30); Chloride 93 mmol/L (98-107); Estimated Glomerular Filt Rate 24; Glucose 148 mg/dL (65-110); Potassium 3.3 mmol/L (3.4-5.0); Sodium 135 mmol/L (137-145)
[2023-05-01 20:01] LABS: NT Pro B Type Natriuretic Pept 231 pg/mL (19.9-100)
[2023-05-01 21:10] LABS: Hemoglobin A1C 6.5 % (<5.7)
[2023-05-04 23:57] LABS: Vitamin D 1,25 (OH)2 Total 18 pg/mL (18-72); Vitamin D2 1,25 (OH)2 <8 pg/mL; Vitamin D3 1,25 (OH)2 18 pg/mL
== END 2023-05-01 09:08 | disposition home or self-care (01) ==
LOC: ANHGOSHLAB 09:09
PROVIDERS: Internal Medicine; PCP Nurse Practitioner Family; Visit Provider Nurse Practitioner Family
DX: R06.09 Other forms of dyspnea (principal); R06.02 Shortness of breath; E55.9 Vitamin D deficiency, unspecified; R73.03 Prediabetes; I50.31 Acute diastolic (congestive) heart failure; R53.83 Other fatigue; I11.0 Hypertensive heart disease with heart failure
CPT/HCPCS: 36415; 80053; 80069; 82652; 83036; 83880; 84443

== ENCOUNTER → 2023-05-01 09:31 | Outpatient (CLI) | payer MEDICARE, BC, SELFPAY ==
--- NOTE | ~2023-05-01 | XR_ITS ---
Clinical Indication: Shortness of breath PA and lateral views of the chest: Comparison: 04/16/2023 Findings: There is mild retrocardiac haziness. Right lung clear. No pleural effusion. Cardiomediasti nal silhouette is stable. Bones and soft tissues are unremarkable. Impression: Mild retrocardiac haziness. Correlate for minimal pulmonary edema/atelectasis versus pneumonia. Reviewed, dictated and finalized at location . S ENGINEER ACCOUNT MANAGER Impression: Mild retrocardiac haziness. Correlate for minimal pulmonary edema/atelectasis v ersus pneumonia.
== END ==
PROVIDERS: PCP Family Medicine; Visit Provider Nurse Practitioner Family
DX: R06.02 Shortness of breath (principal); I50.9 Heart failure, unspecified; R91.8 Other nonspecific abnormal finding of lung field
CPT/HCPCS: 71046

== ENCOUNTER 2023-05-23 08:04 | Outpatient (CLI) | payer MEDICARE, BC, SELFPAY ==
--- NOTE | ~2023-05-23 | XR_ITS ---
Lumbosacral Spine: AP and lateral views, with neutral, flexion, extension positioning Clinical History: Pain Findings: There is levoscoliosis of the lumbar spine. No fracture evident. There is 3 mm retrolisthes is of L3 over L4, which appears slightly more pronounced on flexion and extension as compared to neut ral position. The vertebral bodies and posterior elements are intact. There is advanced degenerative disc narrowing at L4-L5. There is moderate degenerative disc narrowing throughout the remainder of th e lumbar spine. There is moderate to advanced facet arthropathy, especially from L3 through S1. The s acroiliac joints are normally outlined. Impression: 3 mm retrolisthesis of L3 over L4, which appears slightly more pronounced on flexion and extension im ages as compared to neutral position. Levoscoliosis with moderate degenerative spondylosis, as above. Reviewed, dictated and finalized at [facility]. IBILITY AND OCCUPANCY INTERVIEWER Impression: 3 mm retrolisthesis of L3 over L4, which appears slightly more pronounced on fl exion and extension images as compared to neutral position. Levoscoliosis with moderate degenerative spondylosis, as above.
--- NOTE | ~2023-05-23 | MR_ITS ---
MRI of the lumbar spine Clinical History: Back pain Technique: Axial T2-weighted images, and sagittal T1-weighted, T2-weighted, and T2 fat-sat images wer e acquired. COMPARISON: 02/07/2022 Findings: No fracture identified. There is minimal grade 1 retrolisthesis of L1 over L2, and of L2 ov er L3. No suspicious bone marrow signal abnormality seen. At L1-L2, there is mild degenerative disc narrowing. There is minimal disc bulge and minimal facet ar thropathy. No central canal stenosis. There is mild bilateral neural foraminal narrowing. At L2-L3, there is moderate degenerative disc narrowing. There is minimal disc bulge and mild facet a rthropathy. No central canal stenosis or definite neural foraminal narrowing. At L3-L4, there is moderate degenerative disc narrowing. There is mild disc bulge and mild facet arth ropathy. No central canal stenosis or definite neural foraminal narrowing. At L4-L5, there is advanced degenerative disc narrowing. There is mild disc bulge and moderate facet arthropathy. No central canal stenosis. There is moderate bilateral neural foraminal narrowing. At L5-S1, there is no disc bulge or herniation. There is moderate to advanced facet arthropathy. No c entral canal stenosis. There is moderate to advanced left neural foraminal narrowing. Right neural fo ramen preserved. Paravertebral soft tissues are unremarkable. Impression: Moderate degenerative spondylosis, as above. Minimal grade 1 retrolisthesis of L1 over L2, and of L2 over L3. Reviewed, dictated and finalized at [facility]. URE ANALYSIS ENGINEER Impression: Moderate degenerative spondylosis, as above. Minimal grade 1 retrolisthesis of L1 over L2, and of L2 over L3.
== END 2023-05-23 08:05 | disposition home or self-care (01) ==
LOC: ANHIMG 08:07
PROVIDERS: PCP Family Medicine; Visit Provider Neurological Surgery
DX: M47.896 Other spondylosis, lumbar region (principal)
CPT/HCPCS: 72110; 72148

== ENCOUNTER 2023-05-29 10:11 | Outpatient (CLI) | payer MEDICARE, BC, SELFPAY ==
--- NOTE | ~2023-05-29 | US_ITS ---
US renal BI 05/29/2023 10:43 Procedure: Realtime transabdominal ultrasound of the kidneys and bladder. Indication: Chronic kidney disease stage III a Comparison: No prior studies for comparison. Findings: Renal echotexture is normal bilaterally without hydronephrosis, contour deforming mass or r enal calculus. The right kidney measures 9.8 cm and left kidney measures 10.3 cm. Bladder within nor mal limits. There is fatty infiltration of the liver. Impression: 1: Unremarkable renal ultrasound. No stones, masses or hydronephrosis. Reviewed, dictated and finalized at location B. E INSTALLER Impression: 1: Unremarkable renal ultrasound. No stones, masses or hydronephrosis.
== END 2023-05-29 10:12 | disposition home or self-care (01) ==
PROVIDERS: PCP Family Medicine; Visit Provider Internal Medicine Nephrology
DX: I10 Essential (primary) hypertension (principal); N18.31 Chronic kidney disease, stage 3a
CPT/HCPCS: 76775

== ENCOUNTER 2023-07-01 12:55 | Outpatient (CLI) | payer MEDICARE, BC, SELFPAY ==
[2023-07-01 19:57] LABS: Creatinine Urine 20.7 mg/dL; Total Protein Urine Random 10 mg/dL; Ur Ttl Prot Creatinine Ratio 0.48 mg/mg (0-0.20)
[2023-07-01 20:29] LABS: Albumin Level 4.4 g/dL (3.5-5.1); Anion Gap 10 mmol/L (8-16); Blood Urea Nitrogen 23 mg/dL (7-17); Calcium 9.6 mg/dL (8.4-10.2); Carbon Dioxide 24 mmol/L (22-30); Chloride 104 mmol/L (98-107); Estimated Glomerular Filt Rate 40; Glucose 106 mg/dL (65-110); Phosphorus 2.8 mg/dL (2.5-4.5); Potassium 3.7 mmol/L (3.4-5.0); Sodium 138 mmol/L (137-145)
[2023-07-01 20:54] LABS: Complement C3 163 mg/dL (88-165)
[2023-07-03 14:39] LABS: Alpha 1 Globulin 0.3 g/dL (0.2-0.3); Alpha 2 Globulin 0.8 g/dL (0.5-0.9); Beta 1 Globulin 0.5 g/dL (0.4-0.6); Gamma Globulin 0.7 g/dL (0.8-1.7); Interpretation Consistent with; Protein, Total 6.7 g/dL (6.1-8.1)
[2023-07-04 09:20] LABS: Anti Glomerular Basement Memb <1.0 AI (<1.0)
[2023-07-05 05:27] LABS: Anti Nuclear Antibody Titer 1:40 (Negative)
[2023-07-05 14:59] LABS: ANCA Screen Negative (Negative)
[2023-07-06 01:51] LABS: Creatinine, Random Urine 23 mg/dL (20-275)
== END 2023-07-01 12:56 | disposition home or self-care (01) ==
LOC: ANHGOSHLAB 12:59
PROVIDERS: PCP Family Medicine; Visit Provider Internal Medicine Nephrology
DX: I10 Essential (primary) hypertension (principal); N18.31 Chronic kidney disease, stage 3a
CPT/HCPCS: 36415; 80069; 82570; 83520; 84155; 84156; 84165; 84166; 86036; 86038; 86039; 86160; 86225

== ENCOUNTER 2023-07-16 09:59 | Outpatient (CLI) | payer MEDICARE, BC, SELFPAY ==
--- NOTE | ~2023-07-16 | MR_ITS ---
MRI of the thoracic spine Clinical History: Pain Technique: Axial T2-weighted and gradient images, and sagittal T1-weighted, T2-weighted, and STIR lópez ges were acquired. Findings: There is no fracture or subluxation of the thoracic spine. There is mild levoscoliosis of t he upper thoracic spine. No suspicious bone marrow signal abnormality seen. No significant disc bulge or herniation identified. No spinal canal stenosis or cord compression evid ent. Intervertebral disc spaces are minimally degenerated. Paravertebral soft tissues are unremarkable. Impression: No acute abnormality. Minimal degenerative disc change and mild levoscoliosis of the upper thoracic spine. Reviewed, dictated and finalized at location M. RNATIONAL PROJECT MANAGER Impression: No acute abnormality. Minimal degenerative disc change and mild levoscoliosis of the upper thoracic s pine.
== END 2023-07-16 10:00 | disposition home or self-care (01) ==
LOC: ANHIMG 10:04
PROVIDERS: PCP Family Medicine; Visit Provider Pain Medicine Pain Medicine
DX: M51.34 Other intervertebral disc degeneration, thoracic region (principal); M41.84 Other forms of scoliosis, thoracic region
CPT/HCPCS: 72146

== ENCOUNTER 2023-08-29 13:25 | Outpatient (CLI) | payer MEDICARE, BC, SELFPAY ==
--- NOTE | 2023-08-29 | ECG_ITS ---
Measurements Intervals [place] Rate: 55 P: 45 GA: 166 QRS: 32 QRSD: 88 T: 30 QT: 446 QTc: 430 Interpretive Statements SINUS BRADYCARDIA MINIMAL Q WAV ES- INF/LAT LEADS BORDERLINE ECG COMPARED TO ECG 04/16/2023 12:49:00 NO SIGNIFICANT CHANGES Electronically Signed On 08-29-2023 14:51:48 SYSTEMS PROGRAM MANAGER by Aris Ahumada D.O.
[2023-08-29 14:37] LABS: Basophils Absolute Auto 0.1 K/mm3 (0.0-0.1); Eosinophils Absolute Auto 0.4 K/mm3 (0-0.3); Eosinophils Percent Auto 5.2 % (0-4.4); Hematocrit 40.3 % (37.0-47.0); Hemoglobin 12.7 g/dL (12.0-15.0); Immature Granulocyte Absolute 0.04 K/mm3 (0.00-0.031); Immature Granulocyte Percent A 0.6 % (0-0.5); Lymphocytes Absolute Auto 2.24 K/mm3 (0.9-3.2); Lymphocytes Percent Auto 31.7 % (18.3-44.2); Mean Corpuscular HGB Conc 31.5 g/dl (32-36); Mean Corpuscular Hemoglobin 30.4 pg (26-34); Mean Corpuscular Volume 96.4 fl (80-100); Mean Platelet Volume 10.8 fl (7.4-10.4); Monocytes Absolute Auto 0.7 K/mm3 (0.1-0.6); Monocytes Percent Auto 10.5 % (2.6-8.5); Neutrophils Absolute Auto 3.6 K/mm3 (1.3-6.7); Platelet Count Result 214 k/mm3 (150-375); Red Blood Count 4.18 M/mm3 (4.2-5.4); Red Cell Distribution Width 13.3 % (11.5-14.5); White Blood Count 7.1 K/mm3 (4.5-10.0)
[2023-08-29 14:41] LABS: Appearance Urine Clear (Clear); Bacteria Urine None Seen /hpf; Bilirubin Urine Negative (Negative); Blood Urine Negative (Negative); Color Urine Yellow (Yellow); Glucose Urine UA 2+ mg/dL (Negative); Ketones Urine Negative (Negative); Leukocyte Esterase Ur Trace LEU/UL (Negative); Nitrate Urine Negative (Negative); Non Pathogenic Casts 0-2; Protein Urine Negative (Negative); RBC Urine 0-2 /hpf (0-2); Specific Grav Ur 1.009 (1.001-1.035); Squamous Epithelial Cell Urine None seen /hpf (Few); Urobilinogen Urine 0.2 mg/dL (<2.0); WBC Urine 0-5 /hpf
[2023-08-29 14:42] LABS: Add Urine Microscopic? YES
[2023-08-29 15:21] LABS: Erythrocyte Sedimentation Rate 17 mm/hr (0-20)
[2023-08-29 17:15] LABS: Alanine Aminotransferase 24 U/L (6-35); Albumin Level 4.5 g/dL (3.5-5.1); Alkaline Phosphatase 70 U/L (38-126); Anion Gap 7 mmol/L (8-16); Aspartate Amino Transferase 31 U/L (14-36); Bilirubin,Total 0.5 mg/dL (0.2-1.3); Blood Urea Nitrogen 30 mg/dL (7-17); CRP < 0.5 mg/dL (<1.0); Calcium 10.5 mg/dL (8.4-10.2); Carbon Dioxide 27 mmol/L (22-30); Chloride 100 mmol/L (98-107); Estimated Glomerular Filt Rate 40; Glucose 114 mg/dL (65-110); Potassium 4.4 mmol/L (3.4-5.0); Sodium 134 mmol/L (137-145)
== END 2023-08-29 13:26 | disposition home or self-care (01) ==
LOC: ANHLAB 13:29
PROVIDERS: PCP Family Medicine; Visit Provider Nurse Practitioner Family
DX: Z01.818 Encounter for other preprocedural examination (principal); R93.1 Abnormal findings on diagnostic imaging of heart and coronary circulation
CPT/HCPCS: 36415; 80053; 81001; 85025; 85652; 86140; 93005

== ENCOUNTER 2023-10-04 09:28 | Outpatient (CLI) | payer MEDICARE, BC, SELFPAY ==
[2023-10-04 10:21] LABS: Prothrombin Time 13.4 Seconds (11.1-14.7)
[2023-10-04 10:22] LABS: Partial Thromboplastin Time 30.8 Seconds (22.3-36.8)
[2023-10-04 10:28] LABS: Hemoglobin A1C 6.4 % (<5.7)
== END 2023-10-04 09:29 | disposition home or self-care (01) ==
LOC: ANHSURGERY 09:32
PROVIDERS: PCP Family Medicine; Visit Provider Neurological Surgery
DX: Z01.818 Encounter for other preprocedural examination (principal); M47.816 Spondylosis without myelopathy or radiculopathy, lumbar region
CPT/HCPCS: 36415; 83036; 85610; 85730

== ENCOUNTER 2023-10-09 00:16 | Day surgery (SDC) | payer MEDICARE, BC, SELFPAY ==
[2023-10-01 14:19] VITALS: BMI 36.8
--- NOTE | 2023-10-01 14:39 | PC.NURSE ---
Addendum entered by Lydia Wells RN 10/01/23 14:42: MAY TAKES IMITREX AM OF SURGERY IF NEEDED Original Note: PRE-OP INSTRUCTIONS, PLEASE READ CAREFULLY Report to the Outpatient Waiting Room, entrance under the green pavilion located off [facility], at time _1130_ on date _10/09/23_. Planned Procedure Time: _1:30 PM_. Time changes happen often and if your time is changed the preop area will call you the afternoon before. - You and your visitor will be asked to self-screen and do not enter if you have any COVID symptoms. - A mask is optional within the hospital at this time. Patients may have clear liquids (water, carbonated beverages, clear teas, apple juice) until 3 hours prior to surgery (1030 AM) with a maximum of 20 ounces. - No food from midnight until time of surgery Take the following medications with a SIP of water the morning of surgery: _NONE_ DO NOT STOP ANY OF YOUR OTHER PRESCRIPTION MEDICATIONS PRIOR TO SURGERY ?EXCEPT THE FOLLOWING Medications to discontinue per physician __NONE___, Date to take last dose Please no make-up, nail lao, hairspray, perfume, deodorant, or body powder the day of surgery. No jewelry (including any body piercings) or valuables the day of surgery, leave them at home. Please take a shower or bath the night before, or the morning of, surgery with an antibacterial soap. Wear comfortable, loose fitting clothing. - Jewelry must be removed prior to entering the operating room. Rings and piercings that are not removed may be cut off. - The hospital will not accept responsibility for valuables. - Please leave all valuables, including medications, at home the day of surgery. If you are going home after surgery, a licensed home delivery driver must drive you home. - NO public transportation without another adult if you receive anesthesia. - We recommend that an adult stay with you for 24 hours following discharge. - We also recommend that you do not drive, make important decision, drink alcoholic beverages, or take any drugs that were not prescribed by your health care provider for at least 24 hours after your discharge time. Follow any additional instructions given to you from your surgeon. If you or anyone in your household have experienced Covid symptoms in the past week, please notify your surgeon or the nurse liaison at the phone number below for possible testing. Telephone instructions given to _PATIENT_and asked if any additional questions and then verbalized understanding. Patient advised to call surgeon office or pre surgery nurse liaison [phone] if any additional questions.
[2023-10-09] VITALS (9 sets, daily range): BP systolic 126–164; BP diastolic 53–88; PULSE 96–110; RESP 14–23; TEMP 36.6–37.2; O2SAT 95–100; BMI 37.2
--- NOTE | ~2023-10-09 | XR_ITS ---
XR fluoroscopy no charge Indication: T9 laminectomy for spinal stimulator placement TECHNIQUE: Fluoroscopy used during T9 laminectomy for spinal stimulator placement performed by [ Urszula Bangura MD] on 10/09/2023. 23 seconds of fluoroscopy time with 1 fluoroscopic images capture d. FINDINGS: Correlate with procedure note. IMPRESSION: Fluoroscopy used during T9 laminectomy for spinal stimulator placement. Reviewed, dictated and finalized at location B. IMPRESSION: Fluoroscopy used during T9 laminectomy for spinal stimulator placem ent.
[2023-10-09] MEDS: LACTATED RINGERS 1,000 ML 30 ML IV CONT (08:30)
--- NOTE | 2023-10-09 09:22 | WPDANESEPPF ---
Anes - Initial Pre Proc Eval Procedure: Operation Date: 10/09/23 10:00 Proposed Procedures p T9 Laminectomy for Spinal Cord Stimulator - Urszula Bangura MD Date/Time: 10/09/23 09:22 Surgeon: Urszula Bangura MD Pre Op Diagnosis: lumbar spondylosis, chronic back pain Patient Data Age: 73 Gender: F Height: 1.52 m Weight: 85.45 kg Allergies Allergy/AdvReac Type Severity Reaction Status Date / Time yellow fever vaccine live Allergy Severe SWELLING, Verified 10/01/23 14:15 JOINT PAIN latex Allergy Mild Swelling Verified 10/01/23 14:15 tetanus and diphtheria Allergy Unknown Swelling Verified 10/01/23 14:15 toxoids Tetanus Vaccines and Toxoid Allergy Unknown Swelling Verified 10/01/23 14:15 clavulanic acid AdvReac Severe vomiting, Verified 10/09/23 08:17 [From Augmentin] diarrhea clindamycin AdvReac Intermediate Nausea and Verified 10/09/23 08:17 Vomiting amoxicillin AdvReac Unknown Nausea and Verified 10/09/23 08:17 Vomiting Home Medications Medication Instructions Recorded Confirmed Type cholecalciferol (vitamin D3) 50 100 mcg PO HS 02/19/23 10/01/23 History mcg (2,000 unit) capsule ascorbic acid (vitamin C) 1,000 mg 1 g PO HS 03/27/23 10/01/23 History capsule mecobalamin (vitamin B12) 5,000 5,000 mcg PO HS 03/27/23 10/01/23 History mcg disintegrating tablet benzonatate 100 mg capsule 100 mg PO TID PRN cough #30 caps 06/28/23 10/01/23 Rx atenolol 50 mg tablet 50 mg PO DAILY #90 tabs 08/09/23 10/01/23 Rx citalopram 40 mg tablet 40 mg PO DAILY #90 tabs 08/09/23 10/01/23 Rx empagliflozin 10 mg tablet 10 mg PO DAILY #90 tabs 08/09/23 10/01/23 Rx (Jardiance) furosemide 20 mg tablet 20 mg PO QAM #90 tabs 08/09/23 10/01/23 Rx losartan 50 mg tablet 50 mg PO HS #90 tabs 08/09/23 10/01/23 Rx omeprazole 40 mg capsule,delayed 40 mg PO DAILY #90 caps 08/09/23 10/01/23 Rx release potassium chloride 10 mEq 10 meq PO DAILY #90 tabs 08/09/23 10/01/23 Rx tablet,extended release (Klor-Con) rosuvastatin 40 mg tablet 40 mg PO DAILY #90 tabs 08/09/23 10/01/23 Rx spironolactone 25 mg tablet 25 mg PO QAM #90 tabs 08/09/23 10/01/23 Rx sumatriptan succinate 25 mg tablet See Rx Instructions .Route 08/09/23 10/01/23 Rx .COMPLEX #9 tabs trazodone 150 mg tablet 150 mg PO QHS PRN insomnia #90 tabs 08/09/23 10/01/23 Rx Patient hx anesthesia problems: none Family hx anesthesia problems: none Results Review: All pre-operative results and documents have been reviewed as part of the pre-operative evaluation. FOR[facility]LY [facility] Past Medical History Medical History (Updated 09/19/23 @ 13:52 by Urszula Bangura MD) Acute diastolic CHF (congestive heart failure) Anxiety Aortic stenosis BMI 37.0-37.9, adult Carpal tunnel syndrome, right Chronic lumbar pain Exertional dyspnea HLD (hyperlipidemia) (~2001) Hypertension Migraines (~1991) Osteoarthritis, multiple sites Prediabetes (~2018) Stage 3 chronic kidney disease (~2018) Stage 3a chronic kidney disease Valvular heart disease Surgical History Surgical History Entrapment of right ulnar nerve at elbow (~2015) H/O arthroscopic knee surgery (~2002) left and right knee H/O: hysterectomy (~1983) w/ left oophorectomy History of carpal tunnel surgery of right wrist (~2015) History of cataract surgery (~2015) bilateral Family History Family History (Updated 09/19/23 @ 13:07 by HU Alvarenga) Mother , @ 92 Family history of elevated blood lipids Hypertension Old age Basically of old age around 96 years old Father , @ 73 Family history of throat cancer Family history of malignant neoplasm of esophagus Respiratory care problem Had a laryngectomy many years prior, in his 70s of respiratory issues Sibling , @ 67 Hepatitis C Rheumatoid arthritis Social History Social History (Updated 09/19/23
--- NOTE | 2023-10-09 09:31 | WPDHPUPDATE1 ---
History and Physical Update Update Date/Time: 10/09/23 09:31 History and Physical has been reviewed, including an updated exam of the patient. There are NO changes in the patient's condition. Risks, benefits, and alternatives have been discussed and questions answered. Patient agrees to proceed with procedure.
[2023-10-09] MEDS: ceFAZolin 2 GM/D5W 50 ML 2 GM/50 ML BAG IVPB (09:57)
[2023-10-09] MEDS: BUPIVACAINE/EPINEPHRINE 0.5% 30 ML VIAL INFILTRATE (10:35)
[2023-10-09] MEDS: VANCOMYCIN HCL 1,000 MG VIAL 500 MG TOPICAL (10:36)
--- NOTE | 2023-10-09 11:28 | PM.OP ---
Procedure Note - Brief Procedure Note - Brief Date of procedure: 10/09/23 lumbar spondylosis, chronic back pain Post-op diagnosis: Same Procedure performed: T8 laminotomy for placement of spinal cord stimulator Surgeon: Urszula Bangura MD Implementation Consultant: Melody Anesthesia: GETDon Findings: Successful placement of Shepherd stimulator without complication Estimated blood loss (mL): 25 Drains: No Packing: No Pathology: None sent Complications: None Condition: Stable Disposition: PACU
[2023-10-09] MEDS: fentaNYL CITRATE INJ (*CRX) 100 MCG/2 ML VIAL 25 MCG IV PUSH ×2 (12:05→12:41)
[2023-10-09] MEDS: oxyCODONE HCL (*CRX) 5 MG TAB IR PO (12:57)
[2023-10-09] MEDS: diphenhydrAMINE HCl CAP 25 MG CAPSULE PO (14:10)
--- NOTE | 2023-10-09 15:27 | W.PM.PROC2 ---
Procedure Note - Detailed Date of Procedure 10/09/23 Pre-op Diagnosis lumbar spondylosis, chronic back pain Post-op Diagnosis Same Procedure Performed 1. T8 laminotomy for placement of spinal cord stimulator 2. Use of C-arm for fluoroscopy Surgeon Urszula Bangura MD Resident Intern Melody Anesthesia General Indications Ms. Lees is a? 73-year-old female with over a year history of back pain neck and radiates to hips and down the right leg which has been resistant to physical therapy, epidural steroid injections, ablations, and medical management.? She has already been determined not to be candidate for surgical intervention to her lumbar spine directly and underwent a spinal cord stimulator trial through at it with 90-95% improvement in all of her symptoms.? She is neurologically intact on physical exam.? MRI lumbar spine shows multilevel spondylitic changes without spondylolisthesis or severe stenosis at any level.? MRI thoracic spine does not show evidence of any central stenosis either.? I think she is a reasonable candidate for spinal cord stimulator and have offered T8 laminotomy for placement of paddle electrode. Based on my discussion with the [facility] this morning, the paddle should reach up to T6; therefore, we planned for a T8 laminotomy instead of T9 as originally planned. We discussed risks including bleeding, pain, infection, weakness, paralysis, spinal cord damage, failure to relieve symptoms, and anesthetic complications. She gave written informed consent to proceed. Description of Procedure The patient was brought to the OR where general anesthesia was induced. The patient was turned prone onto the OR table with Hubert frame. All pressure points were padded. C-arm was used to plan the level of the thoracic incision. A right gluteal incision was also planned for the generator site. The surgical site was prepped and draped in usual sterile fashion. Perioperative antibiotics were given. Local anesthesia was injected into the planned incisions. A 10-blade scalpel was used to open the left gluteal incision. A bovie was used to create a subcutaneous pocket inferiorly. The pocket was packed with a wet Raytec. Next, the thoracic incision was opened with the scalpel, and the soft tissue was dissected with the bovie. The laminae were exposed bilaterally at T8. This was confirmed with the C-arm. A was performed at the superior portion of T8 with the Leksell, high-speed drill, and kerrisons. No significant ligamentum flavum was noted at this level. The laminotomy opening was widened laterally. The paddle stimulator was then placed into the epidural space. Xrays confirmed appropriate positioning in line with the desired placement based on the trial. Anchors were placed into the leads which were attached to the muscle. The leads were tunneled to the gluteal incision. A final xray was obtained to ensure stable placement. The leads were connected to the generator which was then placed into the gluteal pocket. The generator was secured with a silk suture. All incisions were irrigated copiously. Hemostasis was ensured in the thoracic incision with the bipolar and Surgiflo. Stimulon beads were placed into both incisions. The fascia was closed with 0 vicryl. The dermis was closed with 2-0 and 3-0 vicryl. The dermis at the generator site was closed with 2-0 vicryl. The skin was closed in both incisions with 4-0 monocryl. Dermabond was then placed. The patient was returned supine, extubated, and transferred to PACU. Billing codes: 42696, 29341 Drains No Packing No Pathology None sent Complications None Condition Stable Disposition PACU [facility] Billing Surgery - Charge Forward: Surgery Billing
== END 2023-10-09 14:10 | disposition home or self-care (01) ==
PROVIDERS: PCP Family Medicine; Visit Provider Neurological Surgery
PROC: (CPT 63685; principal; 2023-10-09 10:00)
DX: M47.816 Spondylosis without myelopathy or radiculopathy, lumbar region (principal); G89.29 Other chronic pain; I13.0 Hypertensive heart and chronic kidney disease with heart failure and stage 1 through stage 4 chronic kidney disease, or unspecified chronic kidney disease; I50.30 Unspecified diastolic (congestive) heart failure; N18.31 Chronic kidney disease, stage 3a; E78.5 Hyperlipidemia, unspecified; R73.03 Prediabetes; Z79.84 Long term (current) use of oral hypoglycemic drugs; E66.9 Obesity, unspecified; Z68.37 Body mass index [BMI] 37.0-37.9, adult
CPT/HCPCS: 63685; 63655; 99199; A9270; J0330; J0690; J1100; J2405; J2704; J3010; J3370; J7120

== ENCOUNTER 2023-10-24 11:05 | Outpatient (CLI) | payer MEDICARE, BC, SELFPAY ==
[2023-10-24 19:08] LABS: Basophils Absolute Auto 0.1 K/mm3 (0.0-0.1); Basophils Percent Auto 1.2 % (0.2-1.2); Eosinophils Absolute Auto 0.3 K/mm3 (0-0.3); Eosinophils Percent Auto 4.4 % (0-4.4); Hematocrit 41.9 % (37.0-47.0); Hemoglobin 13.1 g/dL (12.0-15.0); Immature Granulocyte Absolute 0.05 K/mm3 (0.00-0.031); Immature Granulocyte Percent A 0.7 % (0-0.5); Lymphocytes Absolute Auto 1.54 K/mm3 (0.9-3.2); Lymphocytes Percent Auto 21.2 % (18.3-44.2); Mean Corpuscular HGB Conc 31.3 g/dl (32-36); Mean Corpuscular Hemoglobin 30.3 pg (26-34); Mean Corpuscular Volume 96.8 fl (80-100); Mean Platelet Volume 10.6 fl (7.4-10.4); Monocytes Absolute Auto 0.6 K/mm3 (0.1-0.6); Monocytes Percent Auto 7.6 % (2.6-8.5); Neutrophils Absolute Auto 4.7 K/mm3 (1.3-6.7); Neutrophils Percent Auto 64.9 % (45.5-73.1); Platelet Count Result 265 k/mm3 (150-375); Red Blood Count 4.33 M/mm3 (4.2-5.4); Red Cell Distribution Width 12.7 % (11.5-14.5); White Blood Count 7.3 K/mm3 (4.5-10.0)
[2023-10-24 19:14] LABS: Alanine Aminotransferase 23 U/L (6-35); Albumin Level 4.6 g/dL (3.5-5.1); Alkaline Phosphatase 93 U/L (38-126); Anion Gap 7 mmol/L (4-12); Aspartate Amino Transferase 31 U/L (14-36); Bilirubin,Total 0.5 mg/dL (0.2-1.3); Blood Urea Nitrogen 22 mg/dL (7-17); Calcium 9.7 mg/dL (8.4-10.2); Carbon Dioxide 27 mmol/L (22-30); Chloride 104 mmol/L (98-107); Cholesterol 180 mg/dL (0-200); Estimated Glomerular Filt Rate 34; Glucose 138 mg/dL (65-110); HDL Direct 97 mg/dL; Potassium 4.5 mmol/L (3.4-5.0); Sodium 138 mmol/L (137-145); Triglycerides 109 mg/dL (<150)
[2023-10-24 19:20] LABS: Parathyroid Intact 63.5 pg/mL (7.5-53.5)
[2023-10-24 19:25] LABS: LDL Cholesterol Direct 67 mg/dL
[2023-10-24 19:27] LABS: Albumin Level 4.6 g/dL (3.5-5.1); Anion Gap 9 mmol/L (4-12); Blood Urea Nitrogen 22 mg/dL (7-17); Calcium 9.4 mg/dL (8.4-10.2); Carbon Dioxide 25 mmol/L (22-30); Chloride 104 mmol/L (98-107); Estimated Glomerular Filt Rate 34; Glucose 137 mg/dL (65-110); Phosphorus 3.9 mg/dL (2.5-4.5); Potassium 4.5 mmol/L (3.4-5.0); Sodium 138 mmol/L (137-145)
[2023-10-24 19:44] LABS: Creatinine Urine 104.4 mg/dL; Total Protein Urine Random 8 mg/dL; Ur Ttl Prot Creatinine Ratio 0.08 mg/mg (0-0.20)
[2023-10-24 20:16] LABS: Hemoglobin A1C 6.6 % (<5.7)
[2023-10-24 20:29] LABS: Vitamin D 25 Hydroxy 56.9 ng/mL
== END 2023-10-24 11:06 | disposition home or self-care (01) ==
LOC: ANHGOSHLAB 11:08
PROVIDERS: Nurse Practitioner Family; PCP Family Medicine; Visit Provider Internal Medicine Nephrology
DX: N25.81 Secondary hyperparathyroidism of renal origin (principal); N18.32 Chronic kidney disease, stage 3b; I12.9 Hypertensive chronic kidney disease with stage 1 through stage 4 chronic kidney disease, or unspecified chronic kidney disease; E55.9 Vitamin D deficiency, unspecified; E11.9 Type 2 diabetes mellitus without complications; I10 Essential (primary) hypertension
CPT/HCPCS: 36415; 80053; 80061; 80069; 82306; 82570; 83036; 83970; 84156; 85025

== ENCOUNTER 2024-01-14 15:53 | Outpatient (CLI) | payer MEDICARE, BC, SELFPAY ==
--- NOTE | ~2024-01-14 | XR_ITS ---
EXAM: XR hip BI wo pelvis DATE: 01/14/2024 16:05 HISTORY: no injury bilateral hip pain for several years . COMPARISON: 10/20/2014, images only. FINDINGS: Stimulator pack over the right iliac wing. Pelvic phleboliths. Normal mineralization. No fr acture or dislocation. No lytic or blastic lesion. Multilevel lumbar degenerative disc disease. Lumba r scoliosis. Mild bilateral hip superior joint space narrowing. No erosion or periosteal change. Soft tissues within normal limits. IMPRESSION: Bilateral mild hip osteoarthritis. Reviewed, dictated and finalized at location K.
== END 2024-01-14 15:54 ==
LOC: MICIMG 15:54
PROVIDERS: PCP Nurse Practitioner Family; Visit Provider Nurse Practitioner Family
DX: M16.0 Bilateral primary osteoarthritis of hip (principal)
CPT/HCPCS: 73521

== ENCOUNTER 2024-01-21 07:29 | Outpatient (CLI) | payer MEDICARE, BC, SELFPAY ==
--- NOTE | ~2024-01-21 | MM_ITS ---
EXAMINATION: MM screening manju BI w gama HISTORY: Screening TECHNIQUE: Craniocaudal and mediolateral oblique 3-D tomosynthesis images were obtained and synthetic 2-D images were generated. CAD analysis was submitted and interpreted. COMPARISON: Comparison to multiple prior studies sequentially, with oldest reviewed study dated 09/02. BREAST PARENCHYMAL COMPOSITION: Not dense: There are scattered areas of fibroglandular density. FINDINGS: There is no evidence of suspicious mass, calcification, or architectural distortion to sugg est malignancy in either breast. There has been no suspicious interval change. IMPRESSION: 1. No mammographic evidence of malignancy. 2. Recommend routine screening mammography in one year. BI-RADS Category 1: Negative. Reviewed, dictated and finalized at location B.
== END 2024-01-21 07:30 | disposition home or self-care (01) ==
PROVIDERS: PCP Family Medicine; Visit Provider Nurse Practitioner Family
DX: Z12.31 Encounter for screening mammogram for malignant neoplasm of breast (principal)
CPT/HCPCS: 77063; 77067

== ENCOUNTER 2024-03-16 12:43 | Outpatient (CLI) | payer MEDICARE, BC, SELFPAY ==
[2024-03-16 15:05] LABS: Albumin Level 4.5 g/dL (3.5-5.1); Anion Gap 9 mmol/L (4-12); Blood Urea Nitrogen 19 mg/dL (7-17); Calcium 10.2 mg/dL (8.4-10.2); Carbon Dioxide 25 mmol/L (22-30); Chloride 103 mmol/L (98-107); Estimated Glomerular Filt Rate 40; Glucose 123 mg/dL (65-110); Phosphorus 3.9 mg/dL (2.5-4.5); Potassium 4.3 mmol/L (3.4-5.0); Sodium 137 mmol/L (137-145)
[2024-03-16 15:30] LABS: Creatinine Urine 82.2 mg/dL; Total Protein Urine Random 8 mg/dL
== END 2024-03-16 12:44 | disposition home or self-care (01) ==
LOC: ANHGOSHLAB 12:45
PROVIDERS: PCP Family Medicine; Visit Provider Internal Medicine Nephrology
DX: I12.9 Hypertensive chronic kidney disease with stage 1 through stage 4 chronic kidney disease, or unspecified chronic kidney disease (principal); N18.32 Chronic kidney disease, stage 3b
CPT/HCPCS: 36415; 80069; 82570; 84156

== ENCOUNTER 2024-07-14 10:01 | Outpatient (CLI) | payer MEDICARE, BC, SELFPAY ==
[2024-07-14 13:45] LABS: Basophils Absolute Auto 0.1 K/mm3 (0.0-0.1); Basophils Percent Auto 1.6 % (0.2-1.2); Eosinophils Absolute Auto 0.8 K/mm3 (0-0.3); Hematocrit 43.4 % (37.0-47.0); Hemoglobin 13.6 g/dL (12.0-15.0); Immature Granulocyte Absolute 0.03 K/mm3 (0.00-0.031); Immature Granulocyte Percent A 0.4 % (0-0.5); Lymphocytes Absolute Auto 2.65 K/mm3 (0.9-3.2); Lymphocytes Percent Auto 34.8 % (18.3-44.2); Mean Corpuscular HGB Conc 31.3 g/dl (32-36); Mean Corpuscular Hemoglobin 28.6 pg (26-34); Mean Corpuscular Volume 91.4 fl (80-100); Monocytes Absolute Auto 0.7 K/mm3 (0.1-0.6); Monocytes Percent Auto 9.2 % (2.6-8.5); Neutrophils Absolute Auto 3.4 K/mm3 (1.3-6.7); Platelet Count Result 249 k/mm3 (150-375); Red Blood Count 4.75 M/mm3 (4.2-5.4); Red Cell Distribution Width 13.5 % (11.5-14.5); White Blood Count 7.6 K/mm3 (4.5-10.0)
[2024-07-14 14:07] LABS: Albumin Level 4.6 g/dL (3.5-5.1); Anion Gap 13 mmol/L (4-12); Blood Urea Nitrogen 30 mg/dL (7-17); Calcium 9.8 mg/dL (8.4-10.2); Carbon Dioxide 25 mmol/L (22-30); Chloride 101 mmol/L (98-107); Estimated Glomerular Filt Rate 39; Glucose 125 mg/dL (65-110); Phosphorus 5.3 mg/dL (2.5-4.5); Potassium 3.9 mmol/L (3.4-5.0); Sodium 139 mmol/L (137-145)
[2024-07-14 14:12] LABS: Alanine Aminotransferase 21 U/L (6-35); Albumin Level 4.6 g/dL (3.5-5.1); Alkaline Phosphatase 84 U/L (38-126); Anion Gap 10 mmol/L (4-12); Aspartate Amino Transferase 36 U/L (14-36); Bilirubin,Total 0.6 mg/dL (0.2-1.3); Blood Urea Nitrogen 30 mg/dL (7-17); Calcium 9.8 mg/dL (8.4-10.2); Carbon Dioxide 25 mmol/L (22-30); Chloride 102 mmol/L (98-107); Cholesterol 244 mg/dL (0-200); Estimated Glomerular Filt Rate 38; Glucose 127 mg/dL (65-110); LDL Cholesterol Direct 85 mg/dL; Parathyroid Intact 31.7 pg/mL (14.5-75.2); Potassium 3.9 mmol/L (3.4-5.0); Sodium 137 mmol/L (137-145); Triglycerides 125 mg/dL (<150)
[2024-07-14 14:22] LABS: Vitamin D 25 Hydroxy 49.8 ng/mL
[2024-07-14 14:34] LABS: HDL Direct 124 mg/dL
[2024-07-14 14:48] LABS: MALB Creatinine Ratio 9.2 mg/g (0-30); Microalbumin Urine Random 6.7 mg/L (0-16.7)
[2024-07-14 15:19] LABS: Creatinine Urine 74.5 mg/dL; Total Protein Urine Random 7 mg/dL; Ur Ttl Prot Creatinine Ratio 0.09 mg/mg (0-0.20)
[2024-07-14 15:50] LABS: Hemoglobin A1C 6.7 % (<5.7)
--- OUTSIDE RECORDS SUMMARY | 2024-07-16 17:11 | XMS_ITS | Clinical Summary ---
Author Organization [facility] Address [address] [place] [address]. [place], [place] [id number] [place] [id number] Care Team Providers Care Archery Instructor Name Role Phone Von Grace MD Primary Care Provider [phone] Social History Tobacco Use Types Packs/Day Years Used Date Smoking Tobacco: Never Assessed Comments Unknown Sex and Gender Information Value Date Recorded Sex Assigned at Not on file Legal Sex Female 4:54 PM CDT Gender Identity Not on file Sexual Orientation Not on file Plan of Treatment Health Maintenance Due Date Last Done Comments Colorectal Cancer Screening Colonoscopy (10 Years) 1950 Hepatitis C 1968 DTaP, Tdap and Td Vaccines ( 1 - Tdap) 1969 Mammogram Screening 1990 Zoster Vaccines (1 of 2) 2000 Dexa Scan (General) 2015 Pneumococcal Vaccine: 65+ Ye ars (1 of 1 - PCV) 2015 COVID-19 Vaccine ( - 2023-2 5 season) 2024 Influenza Adult (#1) 2024 RSV Immunization or 60+ Years (1 - 1-dose 75+ series) 2025 Meningococcal Vaccine Aged Out No arminda jadiel eligible based on patient's age to complete this topic RSV Immunizations Under 20 Months Aged Out No longer eligible based on patient's age to complete this topic Care Teams Archery Instructor Relationship Specialty Start Date End Date Von Grace MD PCP - General 03/28/15
--- OUTSIDE RECORDS SUMMARY | 2024-07-16 17:11 | XMS_ITS | Encounter Summary ---
Author Organization [facility] Address [address] [place] [address]. [place], [place] [id number] [place] [id number] Care Team Providers Care Career Development Counselor Name Role Phone Von Grace MD Primary Care Provider [phone] Encounter Details Date Type Department Care Team (Late st Contact Info) Description 04/27/2017 [place] [address] , Generic Conversion, Social History Tobacco Use Types Packs/Day Years Used Date Smoking Tobacco: Never Assessed Comments Unknown Sex and Gender Information Value Date Recorded Sex Assigned at Not on file Legal Sex Female 4:54 PM CDT Gender Identity Not on file Sexual Orientation Not on file documented as of this encounter Plan of Treatment Not on file documented as of this encounter Visit Diagnoses Not on filedocumented in this encounter Care Teams Career Development Counselor Relationship Specialty Start Date End Date Von Grace MD PCP - General 03/28/15 documented as of this encounter
--- OUTSIDE RECORDS SUMMARY | 2024-07-16 17:11 | XMS_ITS | Continuity of Care Document ---
Author Organization [facility] Address [address] [place] [address] Phone Care Team Providers Care Goodwill Ambassador Name Role Phone Wisam Ward MD Unavailable [...] Active Procedures Procedure Date OFFICE/OUTPATIENT VISIT [facility] Advance Directives Directive Yes / No Effective Date File Name No Information Encounters Encounter Description Practice Location Reason(s) For Visit Diagnoses Date Provider Providers Copied on Encounter OFFICE/OUTPAT IENT VISIT [facility], [address], [place], [address], [place] tel:[phone] Annika Trochanteric bursitis, right hipBody mass index (BMI) 36.0-36.9, adult May-0 8-201 [address] [place], [place], [id number] . tel: [phone] Family History Family Member Type Diagnosis Age At Onset Brother Problem (finding) Alive and well Immunizations Vaccine Date Status Comments pneumococcal polysaccharide vaccine, 23 valent administered Source: Other Provid er Payers Payer name Insurance type Covered libertarian ID Ananth noble(s) Medicare E2 OT [id number] [employer] [facility] E2 [id number] Social History Type Description Quantity Date Captured [...]
--- OUTSIDE RECORDS SUMMARY | 2024-07-16 17:11 | XMS_ITS | Continuity of Care Document ---
Author Organization [facility] Address [address] [facility] [address] [place] [address] Phone Care Team Providers Care Stripper Opaquer Name Role Phone Ashli MOORE, Toño Unavailable [...] Copied on Encounter [facility], [address] [place] [address], [id number], tel:[phone] [facility] No Information 6 Ashli Lundberg. [address], [address], [place], [id number], [place]. tel:[phone] Referring Provider: Toño Cornelius , [address], [place] [address] [place], [place], [id number]. tel:[phone] [facility], [address] [place] [address], [id number], tel:[phone] [facility] No Information 6 Ashli Lundberg. [address], [address], [place], [place], [id number], [place]. tel:[phone] Referring Provider: Toño Cornelius , [address], [place], [place], [id number]. tel:[phone] OFFICE/OUTPA TIENT VISIT, EST [facility], [address] [place] [address], [id number], tel:[phone] [facility] eval (chief complaint) Cataract extraction status of right eyeCataract extraction status of left eyeDry eyes, bilateralVitr eous floaters of both eyesPosterior capsular opacification visually significant of both eyesDermatoch alasis of left upper eyelidDermato chalasis of right upper eyelid 6 Ashli Avilahil. [address] [facility], [address], [place] [address] [place], [place], [id number], [place]. tel:[phone] Referring Provider: Toño Cornelius , [address] [facility] [address], [place] [address] [place], [place], [id number]. tel:[phone] [facility], [address] [place] [address] [address], [place] [address] [place], [place], [id number], [place] tel:[phone] O[facility] No Information 4 Abrahan Pruitt. [address] [place] [address], [address], [place], [address], [place]. tel:[phone] Referring Provider: Edmond García, [address] [place] [address] [address], [place], [address]. tel:[phone] [facility], [address] [place] [address] [address], [place] [address] [place], [place], [id number], [place] tel:[phone] [facility] discharge OU after gtts OU (chief complaint)d ischarge OU after gtts (chief complaint) No Information 4 Abrahan Pruitt. [address] [place] [address], [address], [place], [address], [place]. tel:[phone] Referring Provider: Edmond García, [address] [place] [address] [address], [place], [address]. tel:[phone] [facility], [address] [place] [address] [address], [place] [address] [place], [place], [id number], [place] tel:[phone] [facility] No Information 4 Abrahan Pruitt. [address] [place] [address], [address], [place], [address], [place]. tel:[phone] Referring Provider: Edmond García, [address] [place] [address] [address], [place], [address]. tel:[phone] [facility], [address] [place] [address] [address], [place] [address] [place], [id number], [place] tel:[phone] [facility] No Information 4 Abrahan Pruitt. [address] [facility], [address], [place], [address], [place]. tel:[phone] Referring Provider: Edmond García, [address] [place] [address] [address], [place], [address]. tel:[phone] [facility], [address] [place] [address] [address], [place] [address] [place], [place], [id number], [place] tel:[phone] Oph Consult [facility] Office itching,eye s feel tired,burni ng sensation OD (chief complaint)i tching,eyes feel tired,burni ng sensation (chief complaint) No Information 4 Ashli Lundberg. [address] [facility], [address], [place], [place], [id number], [place]. tel:[phone] Referring Provider: Toño Cornelius , [address] [facility] [address], [place] [address] [place], [place], [id number]. tel:[phone] [facility], [address] [place], [place] [address] [address], [place] [address] [place], [place], [id number], [place] tel:[phone] [facility] no complaints OD (chief complaint)n o complaints (chief complaint) No Information 4 Abrahan Pruitt. [address] [facility], [address], [place], [address], [place]. tel:[phone] Referring Provider: Edmond García, [address] [place] [address] [address], [place], [address]. tel:[phone] [facility], [address] [place] [address] [address], [place] [address] [place], [place], [id number], [place] tel:[phone] [facility] [place] No Information 4 Abrahan Pruitt. [address] [place] [address], [address], [place], [address], [place]. tel:[phone] Referring Provider: Edmond García, [address] [facility] [address], [place], [address]. tel:[phone] OFFICE/OUTPA TIENT VISIT, NEW [facility], [address], [address] [place], [place], [id number], [place] tel:[phone] [facility] Office blurry vision (chief complaint) Senile nuclear sclerosisOthe r vitreous opacities 4 Abrahan Pruitt. [address] [facility], [address], [place], [address], [place]. tel:[phone] Referring Provider: Edmond García, [address] [facility] [address], [place], [address]. tel:[phone] Family History Family Member Type Diagnosis Age At Onset No Information Payers Payer name Insurance type Covered democrat ID Authorrobert noble(s) MEDICARE OF [place] MB [id number] [facility] [id number] Social History Type Description Quantity Date Captured Comments Sex Female Smoking Status No Information Chief Complaint And Reason For Visit No Information Plan Of Treatment Date Type Action Status No Information History Of Present Illness Encounter [...] sensation OD no complaints no complaints OD Instructions Date Instruction Additional Infor chio Impression/Plan Related to [place] tochalasis of right upper eyelid Impression/Plan - [...]
== END 2024-07-14 10:02 | disposition home or self-care (01) ==
PROVIDERS: PCP Nurse Practitioner Family; Visit Provider Internal Medicine Nephrology
DX: E78.5 Hyperlipidemia, unspecified (principal); E55.9 Vitamin D deficiency, unspecified; E11.22 Type 2 diabetes mellitus with diabetic chronic kidney disease; I12.9 Hypertensive chronic kidney disease with stage 1 through stage 4 chronic kidney disease, or unspecified chronic kidney disease; N18.32 Chronic kidney disease, stage 3b; N25.81 Secondary hyperparathyroidism of renal origin; Z13.29 Encounter for screening for other suspected endocrine disorder
CPT/HCPCS: 36415; 80053; 80061; 80069; 82043; 82306; 82570; 83036; 83970; 84156; 84443; 85025

== ENCOUNTER 2024-11-23 09:10 | Outpatient (CLI) | payer MEDICARE, BC, SELFPAY ==
--- OUTSIDE RECORDS SUMMARY | 2024-11-23 09:27 | XMS_ITS | Referral Summary ---
Author Organization [facility] [address] Address [address] [place] [address] Care Team Providers Care End Finder Twisting Department Name Role Phone Chris Antonio MD Primary Care Provider Allergies Active Allergy Reactions Criticality Noted Date Comments Amoxicillin-Pot Clavulanate Diarrhea,David sea & Vomiting Low 05/09/2023 Latex Hives,Itching,Swelling Medium 05/09/2023 Yellow Fever Vaccine Live Swelling,Joint pain Medium 1 07/09/2022 Medications citalopram (CeleXA) 40 mg tablet Take 1 tablet (40 mg total) by mouth daily 02/21/2023 Active Jardiance 10 mg tablet Take 1 tablet (10 mg total) by mouth daily 04/25/2023 Active furosemide (LASIX) 20 mg tablet Take 1 tablet (20 mg total) by mouth daily 05/04/2023 Active losartan (COZAAR) 50 mg tablet Take 1.5 tablets (75 mg total) by mouth daily 02/08/2023 Active omeprazole (PriLOSEC) 40 mg capsule Take 1 capsule (40 mg total) by mouth daily 05/01/2023 Active rosuvastatin (CRESTOR) 40 mg tablet Take 1 tablet (40 mg total) by mouth daily 05/01/2023 Active traZODone (DESYREL) 150 mg tablet TAKE 1 TABLET BY MOUTH EVERY DAY AT BEDTIME NEEDED FOR INSOMNIA 02/21/2023 Active atenoloL (TENORMIN) 50 mg tablet Take 1 tablet (50 mg total) by mouth daily 06/09/2024 Active Active Problems Problem Noted Date Diagnosed Date Chronic heart failure with preserved ejection fr action 01/31/2024 Hypertension 01/31/2024 Hyperlipidemia 01/31/2024 Social History Tobacco Use Types Packs/Day Years Used Date Smoking Tobacco: Never Tobacco Cessation:Counseling Given: Not Answered Comments Unknown Sex and Gender Information Value Date Recorded Sex Assigned at Not on file Legal Sex Female 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 Gender Identity Not on file Sexual Orientation Not on file Last Filed Vital Signs Vital Sign Reading Time Taken Comments Blood Pressure 136/64 07/31/2024 8:36 AM AUTO PARTS COUNTER PERSON Pulse 72 07/31/2024 8:36 AM AUTO PARTS COUNTER PERSON Temperature - - Respiratory Rate - - Oxygen Saturation 97% 07/31/2024 8:36 AM AUTO PARTS COUNTER PERSON Inhaled Oxygen Concentration - - Weight 84.4 kg (186 lb) 07/31/2024 8:36 AM AUTO PARTS COUNTER PERSON Height 152.4 cm (5') 07/31/2024 8:36 AM AUTO PARTS COUNTER PERSON Body Mass Index 36.33 07/31/2024 8:36 AM AUTO PARTS COUNTER PERSON Plan of Treatment Not on file Insurance FEDERAL MEDICARE Care Teams End Finder Twisting Department Relationship Specialty Start Date End Date Chris Antonio MD [address] [facility] [address] [place] [address] PCP - General Family Practice 01/31/24
--- OUTSIDE RECORDS SUMMARY | 2024-11-23 09:27 | XMS_ITS | Clinical Summary ---
Author Organization [facility] [address] Address [address] [place] [address] Care Team Providers Care Plumbing Mechanic Name Role Phone Chris Antonio MD Primary [...] fr action 01/31/2024 Hypertension 01/31/2024 Hyperlipidemia 01/31/2024 Medical History Medical History Date Comments Hypertension Hyperlipidemia Obesity Sinusitis Dizziness Social History Tobacco Use Types Packs/Day Years Used Date Smoking Tobacco: Never Tobacco Cessation:Counseling Given: Not Answered Comments Unknown Sex and Gender Information Value Date Recorded Sex Assigned at Not on file Legal Sex Female 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 Gender Identity Not on file Sexual Orientation Not on file Obstetrics History Last Filed Vital Signs Vital Sign Reading Time Taken Comments Blood Pressure 136/64 07/31/2024 8:36 AM DAY HABILITATION SPECIALIST Pulse 72 07/31/2024 8:36 AM DAY HABILITATION SPECIALIST Temperature - - Respiratory Rate - - Oxygen Saturation 97% 07/31/2024 8:36 AM DAY HABILITATION SPECIALIST Inhaled Oxygen Concentration - - Weight 84.4 kg (186 lb) 07/31/2024 8:36 AM DAY HABILITATION SPECIALIST Height 152.4 cm (5') 07/31/2024 8:36 AM DAY HABILITATION SPECIALIST Body Mass Index 36.33 07/31/2024 8:36 AM DAY HABILITATION SPECIALIST Plan of Treatment Health Maintenance Due Date Last Done Comments Breast Cancer Screening-Mammogram 1950 Colon Cancer Screening-Colonoscopy 1950 Depression Screening 1950 Fall Risk Assessment 1950 Hepatitis C Screening 1950 Osteoporosis Screening-Bone Density Scan 1950 DTaP/Tdap/Td Vaccine (1 - Tdap) 1961 Hepatitis B Screening 1968 Well Visit 65+ 2015 Covid-19 Vaccine (2023-07 5 season) 2024 03/23/2023, 11/28/2022, 05/30/2022, Additional history exists Influenza Vaccine (Season Ended) 2025 02/27/2023, 04/04/2022, 04/07/2021, Additional history exists Pneumococcal vaccine 65+ Completed 018, 03/24/2017, 06/24/2015, Additional history exists Zoster Vaccine Completed 07/22/2020, 04/07/2018 Insurance BCBS FEDERAL MEDICARE Care Teams Plumbing Mechanic Relationship Specialty Start Date End Date Chris Antonio MD [address] [facility] [address] [place] [address] PCP - General Family Practice 01/31/24
--- OUTSIDE RECORDS SUMMARY | 2024-11-23 09:27 | XMS_ITS | Continuity of Care Document ---
Author Organization [facility] Address [address] [facility] [address] [place] [address] Phone Care Team Providers Care Nozzle Tender Name Role Phone Wisam Ward MD Unavailable [...] Active Procedures Procedure Date OFFICE/OUTPATIENT VISIT [facility] Advance Directives Directive Yes / No Effective Date File Name No Information Encounters Encounter Description Practice Location Reason(s) For Visit Diagnoses Date Provider Providers Copied on Encounter OFFICE/OUTPAT IENT VISIT [facility], [address], [place], [address], [place] tel:[phone]ika Trochanteric bursitis, right hipBody mass index (BMI) 36.0-36.9, adult May-0 8-201 8 Ed Joel. [address] [place], [place], [id number] . tel: [phone] Family History Family Member Type Diagnosis Age At Onset Brother Problem (finding) Alive and well Immunizations Vaccine Date Status Comments pneumococcal polysaccharide vaccine, 23 valent administered Source: Other Provid er Payers Payer name Insurance type Covered alliance party ID Ananth noble(s) Medicare E2 OT [id number] [employer] [facility] E2 OT [id number] Social History Type Description Quantity Date Captured [...]
--- OUTSIDE RECORDS SUMMARY | 2024-11-23 09:27 | XMS_ITS | Data Portability ---
Author Organization [place] [facility] [employer], Main Office Address [address] [place] [address] Care Team Providers Care Loading Checker Name Role Phone MO LOFTON Primary Care Provider [phone] MO LOFTON Referring Provider RAFFY MORENO Primary Care Provider [phone] RAFFY MORENO Referring Provider [phone] Assessment Encounter Date Assessment Date Assessment LastModified by Organization Details LastModified Time 08/29/2022 08/29/2022 HPI: Patient returns. It has been 3 months since her last cortisone injection into both of her trochanteric bursae. She did go on her trip. She drove to [place] as well as [place] since I saw her last. She did most of the driving. She states that her right lateral hip is worse than left. She did a lot a walking and a lot of stairs while she was on the trip as well. She has been taking ibuprofen 400 mg once or twice a day but does not feel this is helping much with her symptoms. She has gone to physical therapy for hip bursitis and states she does the exercises 2 or 3 times a week at home on a regular basis. Physical exam: 72-year-old female alert. She is obese. She has rather severe tenderness over both trochanteric bursae. She has mild weakness with abductor testing in both hips associated with [id number] pain. Hips otherwise have full range of motion without discomfort. Negative Stinchfield maneuver bilaterally. ChloraPrep was used on skin 20 mg Kenalog and 3 cc of 0.5% ropivacaine was injected ears maximal tenderness of both trochanteric bursae. Risk infection discussed. Impression: 72-year-old female most likely has some chronic tearing of the abductor tendon and both hips. She has no arthritic changes in either hip. I did discuss with her that multiple injections can soften tendon and could cause further tearing and should try to be avoided as much as possible. Recommended that she increase the ibuprofen to 600 mg twice a day to see if this helps with her symptoms. She should avoid stairs as much as possible as well. She would like to make an appointment to come back in 3 months for possible injection. If she is doing very well she will call and cancel. 20 minutes was spent in treatment patient more than half of this in [id number] conversation Not available 08/29/2022 15:56:47 11/28/2022 11/28/2022 HPI: Patient returns. Trochanteric bursitis is bothering her again. She had a shot 3 months ago which helped up until a week ago. She stopped taking ibuprofen regularly and thinks this may have been why her hip started bothering her. She was not doing any additional activities that could have contributed to her symptoms. She states she just got up from a chair when she noticed some soreness in the lateral aspects of both hips. She is having difficulty sleeping at night on her sides. She wished to have additional injections today. Physical exam: 72-year-old female alert. She well. She has limp Trendelenburg sag. She has relatively normal strength with abductor testing lateral position. Moderate tenderness over the trochanteric bursae to palpation in both hips. Hips have full range of motion without discomfort bilaterally. After ChloraPrep used on skin 20 mg Kenalog and 3 cc of 0.5% ropivacaine was injected into the areas of maximal tenderness both hips at the greater trochanter area. 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 I recommended she get back to the every profile are more regular basis as well as resume her home exercise program for her hip bursitis. Multiple injections can cause softening and tendon tendon rupture and I reminded her of this again today. I recommended that she minimize the use of cortisone injection in the hips. Will see her back as needed. Not available 11/28/2022 15:51:34 03/13/2023 03/13/2023 HPI: Patient returns. She is here wanting cortisone injections into both of her trochanteric bursae. Last shots were 3 months ago. I remind her again that multiple injections are going to soften the tendon. She has an MRI scan of her hips in the past which show the tendons are intact. She has not been doing her home exercise program on a regular basis. She insisted wanting is in her hips. She gets at least 6 day weeks of good relief from the shots in the past. Physical exam: 72-year-old female alert pleasant. She walks well without limp or Trendelenburg sag. She has moderate to severe tenderness to palpation of both lateral hips right greater than left. She has minimal weakness with abductor testing lateral position both hips. Most of her weakness I believe is coming from pain. Otherwise hips have full range motion without discomfort. After ChloraPrep was used on skin 20 mg Kenalog and 3 cc of 0.5% ropivacaine was injected ears maximal tenderness both trochanteric bursae. Impression: 72-year-old female who has chronic trochanteric bursitis of both hips. I remind her again that multiple injections can be detrimental to the tendons integrity and should be minimized. I recommended that we not make her an appointment in 3 months and she get back on doing her exercises on a regular basis hopefully keep this from recurring. Not available 03/13/2023 15:55:31 Plan of Treatment Reminders Order Date Submit Date Provider Last Modified By Organization Details Last Modified Time Details Appointments None recorded. Lab None recorded. Referral None recorded. Procedures injection/a spiration joint/bursa (PROC) - in office procedure, administere d by provider 2022 023 [email or web address] In-Office Order, Internal Use Only DO Not Attach Compendium DO Not Attach Compendium, Do Not Delete/merge, [id number] 3 15:12:19 injection/a spiration joint/bursa (PROC) - in office procedure, administere d by provider 2022 023 [email or web address] In-Office Order, Internal Use Only DO Not Attach Compendium DO Not Attach Compendium, Do Not Delete/merge, [id number] 3 15:01:55 injection/a spiration joint/bursa (PROC) - in office procedure, administere d by provider 2022 023 [email or web address] Not available 14:53:41 Surgeries None recorded. Imaging XR, hip + pelvis, bilateral 2022 023 [email or web address] [facility] [place], [address], [place], [address], 3 16:00:47 Medication Orders Kenalog 10 mg/mL suspension for injection 2022 [address] [facility], [address] [facility] [place], [id number], 3 16:11:19 ropivacaine (PF) 5 mg/mL (0.5 %) injection solution 2022 [address]23 [address] [facility], [address] [facility] [place], [id number], 3 16:11:19 Kenalog 10 mg/mL suspension for injection 2022 023 [address] [facility], [address] [place], [place], [id number], 3 15:02:14 ropivacaine (PF) 5 mg/mL (0.5 %) injection solution 2022 [address]23 [address] [facility], [address] [facility] [place], [id number], 3 15:02:14 Kenalog 10 mg/mL suspension for injection 2022 023 [email or web address] [facility], [address] [facility] [place], [id number], 3 14:55:20 ropivacaine (PF) 5 mg/mL (0.5 %) injection solution 2022 023 [email or web address] [facility] #[facility]16, [address] [facility] [place], [place], [id number], 3 14:55:40 Patient TargetsNo targets recorded. Patient InstructionsNo instructions recorded. Reason for Referral None Reported. Results Created Date Observation Date Name Description Value Unit Range Abnormal Flag Note LastModifiedBy Organization Detail LastModifiedTime 11/29/19 23 XR, hip + pelvi s, bilat eral No observ ation record ed. [facility] [place] [address], [place], [address], 11/28/2022 15:49:45 Result Notes None recorded. Problems Name Problem SNOMED Code Status Onset Date Resolution Date Notes Provider Name and Address Organization Details Recorded Time Bilateral trochanter ic bursitis 3650044357179 9109 Active 2021 Not Available [facility] 3 14:09:03 Localized, primary osteoarthr itis of the hand 877410201 Active Not Available [facility] 3 14:09:03 Pain of joint of wrist 580080884 Active Not Available [facility] 3 14:09:03 Partial thickness rotator cuff tear 274024705 Active Not Available [facility] 3 14:09:03 Synovitis and tenosynovi tis 251871891 Active Not Available [facility] 3 14:09:03 Shoulder joint pain 472166717 Active Not Available [facility] 3 14:09:03 Low back pain 816293879 Active Not Available [facility] 3 14:09:03 Enthesopat hy of hip region 72836965 Active Not Available [facility] 3 14:09:03 Trochanter ic bursitis of left hip 8513352124387 03 Active 2021 Not Available [facility] 3 14:09:03 Trochanter ic bursitis of right hip 3250105969627 00 Active 2021 Not Available [facility] 3 14:09:03 Lesion of ulnar nerve 767585253 Active Not Available [facility] 3 14:09:03 Osteoarthr itis 677579645 Active 2021 Not Available [facility] 3 14:09:04 Pain of left knee joint 5347671423623 07 Active 2021 Not Available [facility] 3 14:09:04 Foot pain 82026112 Active 2019 Not Available [facility] 3 14:09:04 Carpal tunnel syndrome 80586000 Active Not Available [facility] 3 14:09:04 Closed fracture of fifth metatarsal bone 90053518 Active 2019 Not Available [facility] 3 14:09:04 Degenerati on of interverte bral disc 90358896 Active Not Available [facility] 3 14:09:04 Pain in limb 50910550 Active Not Available [facility] 3 14:09:04 Osteoarthr itis of left knee joint 2026776212472 09 Active 2022 [facility], [place] [email or web address] 3 14:51:13 Pain of bilateral hip joints 1051194278543 9100 Active 2022 [facility], [facility] 3 14:52:03 Problem Notes None recorded. Procedures Surgical History Date Name Laterality Status Provider Name and Address Organization Details Recorded Time Knee Surgery completed Not Available [facility] 08/22/2022 14:08:51 Imaging Results None recorded. Procedure Notes None recorded. Medical Equipment None Reported. Allergies Allergen ID Allergen Name Allergen Category Reaction Reaction Severity Criticality Documentation Date Start Date Code Code System Note Provider Name and Address Organization Details Recorded Time 23488 amoxicill in medicatio n Not available Not available Not available 08/22/2022 723 RxNorm Not Available [facility] 3 14:10:21 47547 latex environme nt,medica tion Not available Not available Not available 11/28/2022 39896 91 RxNorm [facility], [place] [facility] 3 14:54:14 Medications Name Sig Start Date Stop Date Status Note LastModified by Organization Details LastModified Time losartan 50 mg tablet TAKE 1 AND 1/2 TABLETS BY MOUTH DAILY active Not Available Not Available No t Available cyclobenzap rine 10 mg tablet Take 1 tablet 3 times a day by oral route. 11/28 completed Not Available Not Available Not Available amoxicillin 500 mg capsule TAKE 1 CAPSULE BY MOUTH THREE TIMES DAILY UNTIL ALL TAKEN 11/28 completed Not Available Not Available Not Available methocarbam ol 500 mg tablet TK 2 TS PO Q 6 H PRN 03/05 completed Not Available Not Available Not Available butalbital- acetaminoph en-caffeine 50 mg-325 mg-40 mg capsule 03/05 completed Not Available Not Available Not Available doxycycline hyclate 100 mg capsule 03/05 completed Not Available Not Available Not Available desoximetas one 0.25 % topical cream 03/05 completed Not Available Not Available Not Available bumetanide 2 mg tablet TK 1 T PO D PRF SWELLING 11/28 completed Not Available Not Available Not Available clindamycin HCl 300 mg capsule 03/05 completed Not Available Not Available Not Available citalopram 40 mg tablet TAKE 1 TABLET BY MOUTH DAILY active Not Available Not Available No t Available trazodone 50 mg tablet TAKE 2 TABLETS BY MOUTH EVERY NIGHT AT BEDTIME 11/28 completed Not Available Not Available Not Available cetirizine 10 mg tablet TAKE 1 TABLET BY MOUTH DAILY 11/28 completed Not Available Not Available Not Available ofloxacin 0.3 % eye drops 03/05 completed Not Available Not Available Not Available benzonatate 200 mg capsule TAKE 1 CAPSULE BY MOUTH THREE TIMES DAILY NEEDED FOR COUGH 11/28 completed Not Available Not Available Not Available citalopram 10 mg tablet TK ONE T PO D 03/05 completed Not Available Not Available Not Available hydrocodone 5 mg-acetamin ophen 325 mg tablet 03/05 completed Not Available Not Available Not Available meloxicam 15 mg tablet TAKE 1 TABLET BY MOUTH EVERY DAY active Not Available Not Available No t Available sumatriptan 25 mg tablet TAKE 1 TABLET BY MOUTH AT ONSET OF HEADACHE. MAY REPEAT WITH 1 TABLET NEEDED. MAX 4 TABLETS IN 24 HOURS active Not Available Not Available No t Available prednisone 20 mg tablet TAKE 1 TABLET BY MOUTH EVERY DAY FOR 5 DAYS 11/28 completed Not Available Not Available Not Available betamethaso ne, augmented 0.05 % topical cream YEISON EXT AA Q DAY. DO NOT EXCEED 45 GM Q WK 03/05 completed Not Available Not Available Not Available gabapentin 400 mg capsule TAKE 1 CAPSULE BY MOUTH THREE TIMES DAILY 11/29 completed Not Available Not Available Not Available amlodipine 5 mg tablet TK 1 T PO QD 03/05 completed Not Available Not Available Not Available peg-electro lyte solution 420 gram oral solution 03/05 completed Not Available Not Available Not Available omeprazole 40 mg capsule,del ayed release TAKE 1 CAPSULE BY MOUTH DAILY active Not Available Not Available No t Available tramadol 50 mg tablet TAKE 1 TABLET BY MOUTH TWICE DAILY NEEDED FOR PAIN active Not Available Not Available No t Available triamcinolo ne acetonide 0.1 % topical cream APPLY TOPICALLY TO THE AFFECTED AREA TWICE DAILY 11/28 completed Not Available Not Available Not Available butalbital- acetaminoph en-caffeine 50 mg-325 mg-40 mg tablet TK 1 T PO Q 4 TO 6 H PRF PEÑALOZA 03/05 completed Not Available Not Available Not Available amoxicillin 500 mg tablet 03/10 completed Not Available Not Available Not Available losartan 100 mg-hydrochl orothiazide 25 mg tablet 03/05 completed Not Available Not Available Not Available citalopram 20 mg tablet TK 1 T PO D. 03/05 completed Not Available Not Available Not Available potassium chloride ER 20 mEq tablet,exte nded release(par t/cryst) TK 1 T PO QD 03/05 completed Not Available Not Available Not Available pravastatin 80 mg tablet TK 1 T PO QD 03/05 completed Not Available Not Available Not Available prednisolon e acetate 1 % eye drops,suspe nsion 03/05 completed Not Available Not Available Not Available Kenalog 10 mg/mL suspension for injection in office 2022 active [facility][NOTE 3]: [id number] [id number] [phone] Not Available Not Available Not Available benzonatate 100 mg capsule TAKE 1 CAPSULE BY MOUTH EVERY 8 HOURS NEEDED 11/28 completed Not Available Not Available Not Available cephalexin 500 mg capsule 03/05 completed Not Available Not Available Not Available tacrolimus 0.1 % topical ointment APPLY TOPICALLY TO THE AFFECTED AREA TWICE DAILY FOR 6 WEEKS 11/28 completed Not Available Not Available Not Available trazodone 150 mg tablet TAKE 1 TABLET BY MOUTH EVERY DAY AT BEDTIME NEEDED FOR INSOMNIA active Not Available Not Available No t Available diclofenac 0.1 % eye drops 03/05 completed Not Available Not Available Not Available butalbital 50 mg-acetamin ophen 325 mg-caffeine 40 mg-codeine 30 mg cap TK ONE C PO Q 4 H PRN. DO NOT EXCEED 6 CS PER 24 H 03/05 completed Not Available Not Available Not Available fluorometho lone 0.1 % eye drops,suspe nsion 05/25 completed Not Available Not Available Not Available naproxen 500 mg tablet,jamal yed release 03/10 completed Not Available Not Available Not Available losartan 25 mg tablet TAKE 1 TABLET BY MOUTH DAILY 11/29 completed Not Available Not Available Not Available candesartan 32 mg tablet TK 1 T PO ONCE D 03/05 completed Not Available Not Available Not Available gabapentin 300 mg capsule 11/29 completed Not Available Not Available Not Available isomethepte ne-dichlora lphen-aceta minophen 65 mg-100 mg-325 mg capsule TK 1 C PO QID PRF HEADACHE 07/16 completed Not Available Not Available Not Available diclofenac sodium 75 mg tablet,jamal yed release 03/05 completed Not Available Not Available Not Available bumetanide 1 mg tablet TK 1 T PO QD 03/05 completed Not Available Not Available Not Available mupirocin 2 % topical ointment 03/10 completed Not Available Not Available Not Available ergocalcife rol (vitamin D2) 1,250 mcg (50,000 unit) capsule 03/05 completed Not Available Not Available Not Available clobetasol 0.05 % topical ointment 11/29 completed Not Available Not Available Not Available cefuroxime axetil 500 mg tablet 03/05 completed Not Available Not Available Not Available methylpredn isolone 4 mg tablets in a dose pack FOLLOW PACKAGE DIRECTION S 11/28 completed Not Available Not Available Not Available cefdinir 300 mg capsule 03/05 completed Not Available Not Available Not Available fluticasone propionate 50 mcg/actuati on nasal spray,suspe nsion 03/05 completed Not Available Not Available Not Available candesartan 8 mg tablet TK 1 T PO QD 03/05 completed Not Available Not Available Not Available doxycycline hyclate 100 mg tablet 03/05 completed Not Available Not Available Not Available naproxen 500 mg tablet TK 1 T PO BID 07/04 completed Not Available Not Available Not Available amoxicillin 875 mg-potassiu m clavulanate 125 mg tablet TAKE 1 TABLET BY MOUTH EVERY 12 HOURS FOR 10 DAYS 11/28 completed Not Available Not Available Not Available tobramycin 0.3 %-dexametha sone 0.1 % eye drops,suspe nsion 11/28 completed Not Available Not Available Not Available sumatriptan 6 mg/0.5 mL subcutaneou s pen injector 07/04 completed Not Available Not Available Not Available Pneumovax-2 3 25 mcg/0.5 mL injection syringe active Not Available Not Available Not Available isomethepte ne-dichlora lphenazone- acetaminoph en capsule Take by oral route. 2019 active Not Available Not Available Not Avai lable rosuvastati n 40 mg tablet TAKE 1 TABLET BY MOUTH DAILY active Not Available Not Available No t Available potassium chloride ER 10 mEq tablet,exte nded release(par t/cryst) TK 1 T PO QD 03/05 completed Not Available Not Available Not Available bupropion HCl XL 150 mg 24 hr tablet, extended release 03/10 completed Not Available Not Available Not Available pregabalin 50 mg capsule TAKE 1 CAPSULE BY MOUTH DAILY 11/29 completed Not Available Not Available Not Available chlorhexidi ne gluconate 0.12 % mouthwash RINSE WITH 1/2 OZ TWICE DAILY 11/28 completed Not Available Not Available Not Available lidocaine (PF) 10 mg/mL (1 %) injection solution In office injection administe red by the provider 11/29 completed [facility][NOTE 3]: [phone] [phone] Not Available Not Available Not Available lidocaine (PF) 5 mg/mL (0.5 %) injection solution In office injection administe red by the provider 11/28 completed Not Available Not Available Not Available tramadol ER 200 mg tablet,exte nded release 24 hr 03/05 completed Not Available Not Available Not Available diclofenac 1 % topical gel 03/10 completed Not Available Not Available Not Available Prevnar 13 (PF) 0.5 mL intramuscul ar syringe ADM 0.5ML IM UTD active Not Available Not Available No t Available butalbital- acetaminoph en-caffeine 50 mg-300 mg-40 mg capsule TAKE 1 CAPSULE BY MOUTH EVERY 4 TO 6 HOURS NEEDED FOR PAIN active Not Available Not Available No t Available ropivacaine (PF) 5 mg/mL (0.5 %) injection solution in office 2022 active [facility][NOTE 3] 07454 -064- [phone] Not Available Not Available Not Available Fluvirin 5495-8435 45 mcg (15 mcg x 3)/0.5 mL intramuscul ar suspension ADM 0.5ML UTD 03/05 completed Not Available Not Available Not Available isomethepte ne 65 mg-caffeine 20 mg-acetamin ophen 325 mg tablet 07/16 completed Not Available Not Available Not Available potassium chloride ER 20 mEq tablet,exte nded release 03/05 completed Not Available Not Available Not Available Fluvirin 6016-2188 45 mcg (15 mcg x 3)/0.5 mL intramuscul ar suspension INJECT 0.5 ML INTRAMUSC ULARLY DIRECTED. 03/05 completed Not Available Not Available Not Available Fluvirin 0326-8284 45 mcg (15 mcg x 3)/0.5 mL intramuscul ar suspension 03/05 completed Not Available Not Available Not Available Fluzone High-Dose 4009-7437 (PF) 180 mcg/0.5 mL intramuscul ar syringe 03/05 completed Not Available Not Available Not Available Fluzone High-Dose (PF) 180 mcg/0.5 mL intramuscul ar syringe ADM 0.5ML IM UTD active Not Available Not Available No t Available Shingrix (PF) 50 mcg/0.5 mL intramuscul ar suspension, kit 03/10 completed Not Available Not Available Not Available Fluad 2017- 65yr up(PF)45 mcg(15 mcgx3)/0.5 mL intramuscul ar syringe ADM 0.5ML IM UTD 03/10 completed Not Available Not Available Not Available Flucelvax Quad (PF) 60 mcg (15 mcg x 4)/0.5 mL IM syringe ADM 0.5ML IM UTD 11/28 completed Not Available Not Available Not Available ID NOW COVID-19 Test Kit TEST DIRECTED 11/28 completed Not Available Not Available Not Available BinaxNOW COVID-19 Ag Self Test kit Use as Directed on the Package 11/28 completed Not Available Not Available Not Available Vitals Date Recorded Body height Provider Name an d Address Organization Details Last Updated DateTime 08/29/2022 154.94 cm Esthela Almeida Don [facility] [employer] [facility] 08/29/2022 14:50:48 Date Recorded Body height Body mass index (BMI) Body weight Provider Name and Address Organization Details Last Updated DateTime 11/28/2022 152.4 cm 37.7 kg/m2 22436.33 g Esthela Almeida [facility] [employer] [facility] [employer] [facility] 11/28/2022 15:00:30 Date Recorded Body height Provider Name an d Address Organization Details Last Updated DateTime 03/13/2023 152.4 cm Esthela Almeida [facility] [employer] [facility] [employer] [facility] 03/13/2023 15:10:04 Date Recorded Body height Provider Name an d Address Organization Details Last Updated DateTime 05/11/2022 154.94 cm Not Available [facility] 14:08:57 Date Recorded Body height Provider Name an d Address Organization Details Last Updated DateTime 05/30/2022 154.94 cm Not Available [facility] 14:08:57 Social History None recorded. Functional Status Question Answer Note LastModified by Organizat ion Details LastModified Time What is your level of alcohol consumption? None [id number] Information not available 08/22/2022 Mental Status None recorded. Family History Relationship Description Onset Age of this Age Resolved Age Notes LastModified by Organization Details LastModified Time Sister Heart disease [id number] Not available 08/22/2022 14:08:52 Father Family history of malignant neoplasm [id number] Not available 08/22/2022 14:08:52 Father Hypertensive disorder [id number] Not available 08/22/2022 14:08:52 Mother Hypertensive disorder [id number] Not available 08/22/2022 14:08:52 Medical History Condition Response SKIN PROBLEMS Y HYPERTENSION Y Gynecological HistoryNo gynecological history recorded. Obstetrics History GPAL:G 0 P 0 0 0 0 Past Encounters Encounter ID Performer Location Encounter Start Date Encounter Closed Date Diagnosis/Indication Diagnosis SNOMED-CT Code Diagnosis ICD10 Code Diagnosis Note [id number] Carrillo Garcia MD [facility] [place] [address] [place], [place] [id number] 04/14/2021 00:00:00 04/14/2021 16:16:22 [id number] Carrillo Garcia MD [facility] [place] [address] [address] [place], [place] [id number] 11/29/2021 00:00:00 11/29/2021 15:56:34 [id number] Carrillo Garcia MD [facility] [place] [address] [facility] [address] Mad[place], [place] [address] 02/21/2022 00:00:00 02/21/2022 17:28:51 [id number] Carrillo Garcia MD [facility] [address] [facility] [address] [place], [place] [address] 05/11/2022 00:00:00 05/11/2022 16:20:14 [id number] Carrillo Garcia MD [facility] Ortho [address] [facility] [address] [place], [place] [address] 05/30/2022 00:00:00 05/30/2022 10:31:47 [id number] Carrillo Garcia MD [facility] Ortho [address] [facility] [address] Mad[place], [place] [address] 08/29/2022 14:46:44 08/29/2022 16:04:20 Pain of bilateral hip joints [id number] M25.551 M25.552 [id number] Carrillo Garcia MD [facility] Ortho [address] [place], [place] [address] 11/28/2022 14:31:26 11/28/2022 16:00:47 Pain of bilateral hip joints [id number] M25.551 M25.666 [id number] Carrillo Garcia MD [facility] Ortho Tolu Jiménez [address] [facility] [address] [place], [place] [address] 03/13/2023 15:06:28 03/13/2023 16:05:04 Trochanteric bursitis of right hip [id number] M70.61 Trochanter ic bursitis of left hip [id number] M70.62 Health Concerns Section Related Observation LastModified by Organization Detai ls LastModified Time None Recorded Concern Status LastModified by Organization Details LastModified Time None Recorded Advance Directives Directive None Recorded Payers Encounter Date Sequence Insurance Name Policy Number Policy Redmond Covered Member ID Redmond Member ID Guarantor Name 08/29/2022 1 [place] Ashlie D Nabeel [id number] Ashlie D Nabeel 08/29/2022 2 [place] 111 Ashlie D Nabeel [id number] Ashlie D Nabeel 11/28/2022 1 [place] Ashlie D Nabeel [id number] Ashlie D Nabeel 11/28/2022 2 [place] 111 Ashlie D Nabeel [id number] Ashlie D Nabeel 03/13/2023 1 [place] Ashlie D Nabeel [id number] Ashlie D Nabeel 03/13/2023 2 [place] 111 Ashlie D Nabeel [id number] Ashlie D Nabeel OBGyn Episode No OBEpisode recorded.
--- OUTSIDE RECORDS SUMMARY | 2024-11-23 09:27 | XMS_ITS | Continuity of Care Document ---
Author Organization [facility] Address [address] [facility] [address] [place] [address] Phone Care Team Providers Care Chief Media Officer Name Role Phone Ashli MOORE, Toño Unavailable [...] Copied on Encounter [facility], [address] [place] [address], [id number], tel:[phone] [facility] No Information 6 Ashli Lundberg. [address], [address], [place], [id number], . tel:[phone] Referring Provider: Toño Cornelius , [address], [place], [address]. tel:[phone] [facility], [address] [place] [address], [id number], tel:[phone] [facility] No Information 6 Ashli Lundberg. [address], [address], [place], [place], [id number], [place]. tel:[phone] Referring Provider: Toño Cornelius , [address], [place], [address]. tel:[phone] OFFICE/OUTPA TIENT VISIT, EST [facility], [address] [place] [address], [id number], tel:[phone] OPH CONSULT [facility] eval (chief complaint) Cataract extraction status of right eyeCataract extraction status of left eyeDry eyes, bilateralVitr eous floaters of both eyesPosterior capsular opacification visually significant of both eyesDermatoch alasis of left upper eyelidDermato chalasis of right upper eyelid 6 Ashli Lundberg. [address], [place], [place], [id number], [place]. tel:[phone] Referring Provider: Toño Cornelius , [address] [facility] [address], [place], [address]. tel:[phone] [facility], [address] [place], [place] [address] [address], [place], [place], [address], [place] tel:[phone] Oph Consult [facility] No Information 4 Abrahan Pruitt. [address] [place] [address], [address], [place], [place], [id number], [place]. tel:[phone] Referring Provider: Edmond García, [address] [place] [address] [address], [place], [address]. tel:[phone] [facility], [address] [place] [address], [place], [place], [id number], [place] tel:[phone] Oph Consult [facility] Office discharge OU after gtts OU (chief complaint) No Information 4 Abrahan Pruitt. [address] [place] [address], [address], [place], [place], [id number], [place]. tel:[phone] Referring Provider: Edmond García, [address] [place] [address] [address], [place], [address]. tel:[phone] [facility], [address] [place], [place] [address] [address], [place], [place], [id number], [place] tel:[phone] [facility] No Information 4 Abrahan Pruitt. [address] [place] [address], [address], [place], [place], [address], [place]. tel:[phone] Referring Provider: Edmond García, [address] [place] [address] [address], [place], [address]. tel:[phone] [facility], [address] [place] [address], [place], [place], [id number], [place] tel:[phone] [facility] No Information 4 Abrahan Pruitt. [address] [facility], [address], [place], [place], [address], [place]. tel:[phone] Referring Provider: Edmond García, [address] [place] [address] [address], [place], [address]. tel:[phone] [facility], [address] [place] [address], [id number], [place] tel:[phone] Oph Consult [facility] Office itching,eye s feel tired,burni ng sensation OD (chief complaint) No Information 4 Ashli Lundberg. [address] [facility] [address], [address], [place], [place], [address], [place]. tel:[phone] Referring Provider: Toño Cornelius , [address], [place], [address]. tel:[phone] [facility], [address] [place] [address], [place], [place], [id number], [place] tel:[phone] Oph Consult [facility] no complaints OD (chief complaint) No Information 4 Abrahan Pruitt. [address] [place] [address], [address], [place], [place], [address], [place]. tel:[phone] Referring Provider: Edmond García, [address] [place] [address] [address], [place], [address]. tel:[phone] [facility], [address] [place] [address] [address], [place], [place], [id number], [place] tel:[phone] [facility] No Information 4 Abrahan Pruitt. [address] [place] [address], [address], [place], [place], [address], [place]. tel:[phone] Referring Provider: Edmond García, [address] [facility] [address], [place], [address]. tel:[phone] OFFICE/OUTPA TIENT VISIT, NEW [facility], [address], [place], [place], [address], [place] tel:[phone] Oph Consult [facility] Office Senile nuclear sclerosisOthe r vitreous opacities 4 Abrahan Pruitt. [address], [address], [place], [place], [address], [place]. tel:[phone] Referring Provider: Edmond García, [address] [facility] [address], [place], [address]. 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
[2024-11-23 14:42] LABS: Albumin Level 4.4 g/dL (3.5-5.1); Anion Gap 10 mmol/L (4-12); Blood Urea Nitrogen 20 mg/dL (7-17); Calcium 9.7 mg/dL (8.4-10.2); Carbon Dioxide 25 mmol/L (22-30); Chloride 106 mmol/L (98-107); Estimated Glomerular Filt Rate 44; Glucose 106 mg/dL (65-110); Phosphorus 3.5 mg/dL (2.5-4.5); Potassium 4.1 mmol/L (3.4-5.0); Sodium 141 mmol/L (137-145)
== END 2024-11-23 09:11 | disposition home or self-care (01) ==
LOC: ANHGOSHLAB 09:12
PROVIDERS: PCP Family Medicine; Visit Provider Internal Medicine Nephrology
DX: I12.9 Hypertensive chronic kidney disease with stage 1 through stage 4 chronic kidney disease, or unspecified chronic kidney disease (principal); N18.32 Chronic kidney disease, stage 3b
CPT/HCPCS: 36415; 80069

== ENCOUNTER 2025-02-11 08:32 | Outpatient (CLI) | payer MEDICARE, BC, SELFPAY ==
--- OUTSIDE RECORDS SUMMARY | 2016-01-12 05:10 | XMS_ITS | Continuity of Care Document ---
Author Organization [facility] Address [address] [facility] [address] [place] [address] Phone Care Team Providers Care [employer] Name Role Phone Ashli MOORE, Toño Unavailable [...] Copied on Encounter [facility], [address] [place] [address], [id number], tel:[phone] [facility] No Information 6 Ashli Lundberg. [address], [address], [place], [address], . tel:[phone] Referring Provider: Toño Cornelius , [address], [place], [address]. tel:[phone] [facility], [address] [place] [address], [id number], tel:[phone] [facility] No Information 6 Ashli Lundberg. [address], [address], [place], [place], [address], [place]. tel:[phone] Referring Provider: Toño Cornelius , [address], [place], [address]. tel:[phone] OFFICE/OUTPA TIENT VISIT, EST [facility], [address] [place] [address], [id number], tel:[phone] OPH [facility]SULT ANDER KYLE Yag PC eval (chief complaint) Cataract extraction status of right eyeCataract extraction status of left eyeDry eyes, bilateralVitr eous floaters of both eyesPosterior capsular opacification visually significant of both eyesDermatoch alasis of left upper eyelidDermato chalasis of right upper eyelid 6 Ashli Lundberg. [address], [place], [place], [address], [place]. tel:[phone] Referring Provider: Toño Cornelisu , [address], [place], [address]. tel:[phone] [facility], [address] [place], [place] [address], [place], [place], [address], [place] tel:[phone] Oph [facility] No Information 4 Abrahan Pruitt. [address] [place] [address], [address], [place], [place], [address], [place]. tel:[phone] Referring Provider: Edmond García, [address] [place] [address] [address], [place], [address]. tel:[phone] [facility], [address] [place] [address], [place], [place], [address], [place] tel:[phone] O[facility] Office discharge OU after gtts OU (chief complaint) No Information 4 Abrahan Pruitt. [address] [place] [address], [address], [place], [place], [address], [place]. tel:[phone] Referring Provider: Edmond García, [address] [place] [address] [address], [place], [address]. tel:[phone] [facility], [address] [place], [place] [address], [place], [place], [address], [place] tel:[phone] [facility] No Information 4 Abrahan Pruitt. [address] [place] [address], [address], [place], [place], [address], [place]. tel:[phone] Referring Provider: Edmond García, [address] [place] [address] [address], [place], [address]. tel:[phone] [facility], [address] [place] [address], [place], [place], [address], [place] tel:[phone] [facility] [place] No Information 4 Abrahan Pruitt. [address] [facility], [address], [place], [place], [address], [place]. tel:[phone] Referring Provider: Edmond García, [address] [place] [address] [address], [place], [address]. tel:[phone] [facility], [address] [place] [address], [id number], [place] tel:[phone] O[facility] Consult [facility] Office itching,eye s feel tired,burni ng sensation OD (chief complaint) No Information 4 Ashli Lundberg. [address], [place], [place], [address], [place]. tel:[phone] Referring Provider: Toño Cornelius , [address], [place], [address]. tel:[phone] [facility], [address] [place] [address], [place], [place], [address], [place] tel:[phone] O[facility] Consult [facility] no complaints OD (chief complaint) No Information 4 Abrahan Pruitt. [address] [place] [address], [address], [place], [place], [address], [place]. tel:[phone] Referring Provider: Edmond García, [address] [place] [address] [address], [place], [address]. tel:[phone] [facility], [address] [place] [address] [address], [place], [place], [id number], [place] tel:[phone] [facility] [place] No Information 4 Abrahan Pruitt. [address] [place] [address], [address], [place], [place], [address], [place]. tel:[phone] Referring Provider: Edmond García, [address] [facility] [address], [place], [address]. tel:[phone] OFFICE/OUTPA TIENT VISIT, NEW [facility], [address], [place], [place], [address], [place] tel:[phone] Oph Consult [facility] Office Senile nuclear sclerosisOthe r vitreous opacities 4 Abrahan Pruitt. [address], [place], [place], [address], [place]. tel:[phone] Referring Provider: Edmond García, [address] [facility] [address], [place], [address]. tel:[phone] Family History Family Member Type Diagnosis Age At Onset No Information Payers Payer name Insurance type Covered republican ID Authoriza aide(s) [place] [id number] [facility] [id number] Social History Type Description Quantity Date Captured [...] Instructions Date Instruction Additional Infor chio Impression/Plan Related to [place] tochalasis of right upper eyelid Impression/Plan - No treatment is required at this time. Related to Dermatochalasis of left upper eyelid Impression/Plan - Di scussed diagnosis in detail with patient. Discussed treatment options with patient. Discussed risks and benefits and patient understands. Patient elects to have YAG laser capsulotomy OD, then OS. Related to Posterior capsular opacification visually significant of both eyes Impression/Plan - Al l signs and risks of retinal detachment and tears were discussed in detail. Patient instructed to call the office immediately if any symptoms noted. Related to Vitreous floaters of both eyes Impression/Plan - Pa tient instructed to use artificial tears as needed. Related to Dry eyes, bilateral Impression/Plan - Call if [facility] wor sens. Related to Cataract extraction status of left eye Impression/Plan - Schedule YAG P C OU. Related to Cataract extraction status of right eye - Standard lens Aim distance 2nd eye 01/05/14 FLOYD Le Related to Cataract 1week, 1st eye Other vitreous opaci ties OU - Discussed diagnosis in detail with patient. No treatment is required at this time. Discussed signs and symptoms of retinal detachment. Discussed signs and symptoms of PVD/floaters. Educational materials provided:Flashers/floaters. Related to Other vitreous opacities Senile nuclear scler osis OUDiscussed lens options, [...] cataract surgery. Related to Senile nuclear sclerosis Assessments Type Assessment Date No Information Patient Care Teams Name Effective Dates (start - stop) Status Members No Information
--- OUTSIDE RECORDS SUMMARY | 2017-10-29 03:45 | XMS_ITS | Continuity of Care Document ---
Author Organization [facility] Address [address] [facility] [address] [place] [address] Phone Care Team Providers Care Dental Treatment Coordinator Name Role Phone Wisam Ward MD Unavailable [...] Active Procedures Procedure Date OFFICE/OUTPATIENT VISIT [facility] Advance Directives Directive Yes / No Effective Date File Name No Information Encounters Encounter Description Practice Location Reason(s) For Visit Diagnoses Date Provider Providers Copied on Encounter OFFICE/OUTPAT IENT VISIT [facility], [address], [place], [address], [place] tel:[phone] [facility] [place] Trochanteric bursitis, right hipBody mass index (BMI) 36.0-36.9, adult May-0 8-201 8 Ed Joel. [address] [place], [place], [address] . tel: [phone] Family History Family Member Type Diagnosis Age At Onset Brother Problem (finding) Alive and well Immunizations Vaccine Date Status Comments pneumococcal polysaccharide vaccine, 23 valent administered Source: Other Provid er Payers Payer name Insurance type Covered democrat ID Ananth noble(s) Medicare E2 OT [id number] Blue Cross [facility] E2 OT [id number] Social History Type Description Quantity Date Captured [...]
--- OUTSIDE RECORDS SUMMARY | 2025-02-11 08:48 | XMS_ITS | Clinical Summary ---
Author Organization [facility] [address] Address [address] [place] [address] Care Team Providers Care Kayaking Instructor Name Role Phone Chris Antonio MD Primary [...] on file Legal Sex Female 7:17 PM RUN BOAT OPERATOR Gender Identity Not on file Sexual Orientation Not on file Obstetrics History Last Filed Vital Signs Vital Sign Reading Time Taken Comments Blood Pressure 136/64 07/31/2024 8:36 AM RUN BOAT OPERATOR Pulse 72 07/31/2024 8:36 AM RUN BOAT OPERATOR Temperature - - Respiratory Rate - - Oxygen Saturation 97% 07/31/2024 8:36 AM RUN BOAT OPERATOR Inhaled Oxygen Concentration - - Weight 84.4 kg (186 lb) 07/31/2024 8:36 AM RUN BOAT OPERATOR Height 152.4 cm (5') 07/31/2024 8:36 AM RUN BOAT OPERATOR Body Mass Index 36.33 07/31/2024 8:36 AM RUN BOAT OPERATOR Plan of Treatment Health Maintenance Due Date Last Done Comments Breast Cancer Screening-Mammogram 1950 Colon Cancer Screening-Colonoscopy 1950 Depression Screening 1950 Fall Risk Assessment 1950 Hepatitis C Screening 1950 Osteoporosis Screening-Bone Density Scan 1950 DTaP/Tdap/Td Vaccine (1 - Tdap) 1961 Hepatitis B Screening 1968 Well Visit 65+ 2015 Covid-19 Vaccine (2023- 5 season) 2024 03/23/2023, 11/28/2022, 05/30/2022, Additional history exists Influenza Vaccine (#1) 2025 , 04/04/2022, 04/07/2021, Additional history exists Pneumococcal vaccine 65+ Completed 018, 03/24/2017, 06/24/2015, Additional history exists Zoster Vaccine Completed 07/22/2020, 04/07/2018 Insurance BCBS FEDERAL MEDICARE Care Teams Kayaking Instructor Relationship Specialty Start Date End Date Chris Antonio MD [address] [facility] [address] [place] [address] PCP - General Family Practice 01/31/24
--- NOTE | 2025-02-11 09:03 | ECHO_ITS ---
Patient Info Name: Ashlie Lees Age: 74 years : 1950 Gender: Female Ht: 60 in Wt: 195 lbs BSA: 1.98 m2 HR: 55 bpm BP: 160 / 75 mmHg Technical Quality: Good Exam Date: 02/11/2025 9:17 AM Patient Status: O Admit Date: 02/11/2025 Exam Type: CA echo doppler color flow Complete two-dimensional, color flow and Doppler transthoracic echocardiogram is performed. Home Care Manager Rn: Radha Pemberton Attending Provider: Aris Ahumada DO Summary 1. Complete two-dimensional, color flow and Doppler transthoracic echocardiogram is performed. 2. Left ventricular chamber dimension is normal. 3. Left ventricular systolic function is normal, estimated at 60-65. 4. There is mild concentric increased left ventricular wall thickness. 5. The left ventricular diastolic function is abnormal. 6. E/e' 21 is elevated. 7. Left atrial chamber dimension is mildly enlarged. 8. The aortic valve is not well visualized. Cannot determine number of aortic valve leaflets. 9. There is moderate aortic valve sclerosis. 10. There is moderate aortic valve stenosis with a peak velocity of 278 cm/s, mean gradient of 19 mmHg, and aortic valve area of 1.1 cm2. 11. There is mild to moderate aortic valve regurgitation. 12. The mitral valve has a moderately calcified annulus. 13. There is mild mitral valve regurgitation. 14. There is mild tricuspid valve regurgitation. 15. Mild pulmonary hypertension, estimated pulmonary arterial systolic pressure is 40 mmHg. 16. There is trace pulmonic regurgitation. Left Ventricle E/e' 21 is elevated. Left ventricular chamber dimension is normal. Left ventricular systolic function is normal, estimated at 60-65. There is mild concentric increased left ventricular wall thickness. The left ventricular diastolic function is abnormal. Right Ventricle Right ventricular chamber dimension is normal. Right ventricular systolic function is normal and with normal TAPSE 2.0 cm. Left Atria Left atrial chamber dimension is mildly enlarged. Right Atria Right atrial chamber dimension is normal. Aortic Valve The aortic valve is not well visualized. Cannot determine number of aortic valve leaflets. There is moderate aortic valve sclerosis. There is moderate aortic valve stenosis with a peak velocity of 278 cm/s, mean gradient of 19 mmHg, and aortic valve area of 1.1 cm2. There is mild to moderate aortic valve regurgitation. Pulmonic Valve There is trace pulmonic regurgitation. Mitral Valve The mitral valve has a moderately calcified annulus. There is no mitral valve stenosis. There is mild mitral valve regurgitation. Tricuspid Valve There is mild tricuspid valve regurgitation. Mild pulmonary hypertension, estimated pulmonary arterial systolic pressure is 40 mmHg. Pericardium/Pleural There is no pericardial effusion. Inferior Vena Cava Normal inferior vena cava with >50% collapse upon inspiration consistent with normal right atrial pressure, 5 mmHg. Aorta The aortic root size at the sinus of Valsalva is normal. Left Ventricular Outflow Tract Name Value Normal LVOT 2D LVOT Diameter 1.8 cm LVOT Doppler LVOT Peak Velocity 108 cm/s LVOT Peak Gradient 5 mmHg LVOT Mean Gradient 3 mmHg LVOT VTI 33 cm LVOT VTI/AV VTI Ratio 0.4 LVOT Stroke Volume 88 ml LVOT CO 12.6 l/min LVOT CI 6.4 l/min/m2 Pulmonic Valve Name Value Normal PV Doppler PV Peak Velocity 95 cm/s PV Peak Gradient 4 mmHg Mitral Valve Name Value Normal MV Diastolic Function MV E Peak Velocity 149 cm/s MV A Peak Velocity 133 cm/s MV E/A 1.1 MV Decel Time (PW) 245 ms MV Annular TDI MV E/e' (Septal) 19.0 MV E/e' (Lateral) 24.3 MV E/e' (Average) 21.7 Tricuspid Valve Name Value Normal TV Regurgitation Doppler TR Peak Velocity 294 cm/s TR Peak Gradient 35 mmHg Estimated PAP/RSVP RA Pressure 5 mmHg <=5 PA Systolic Pressure 40 mmHg <36 RV Systolic Pressure 40 mmHg <36 TV Annular TDI TV Lateral Franci s' Velocity 10.2 cm/s >=9.5 Aorta Name Value Normal Ascending Aorta Ao Root Diameter (MM) 2.7 cm Ao Root Diam Index (MM) 1.4 cm/m2 Aortic Valve Name Value Normal AV Doppler AV Peak Velocity 278 cm/s AV Peak Gradient 31 mmHg AV Mean Gradient 19 mmHg AV VTI 83 cm AV Area (Cont Eq VTI) 1.1 cm2 >=3.0 AV Area (Cont Eq John) 1.0 cm2 AV DI (John) 0.39 AV Regurgitation 2D LVOT Area 2.7 cm2 Ventricles Name Value Normal LV Dimensions 2D/MM IVS Diastolic Thickness (2D) 1.3 cm 0.6-1.0 LVID Diastole (2D) 3.6 cm 3.8-5.2 LVIW Diastolic Thickness (2D) 1.2 cm 0.6-0.9 LVID Systole (2D) 2.6 cm 2.2-3.5 LVOT Diameter 1.8 cm LV Mass (2D Cubed) 153.51 g 67.00-162.00 LV Mass Index (2D Cubed) 77 g/m2 43-95 Relative Wall Thickness (2D) 0.66 <=0.42 LV Fractional Shortening/Ejection Fraction 2D/MM LV Fractional Shortening (2D) 29 % 27-45 LV EF (2D Teichholz) 56 % LV Diastolic Volume (4C MOD) 97 ml LV EF (4C MOD) 67 % LV Diastolic Volume (2C MOD) 107 ml LV EF (2C MOD) 60 % LV Diastolic Volume (BP MOD) 102 ml 46-106 LV Diastolic Volume Index (BP MOD) 52 ml/m2 29-61 LV Systolic Volume (BP MOD) 37 ml 14-42 LV Systolic Volume Index (BP MOD) 19 ml/m2 8-24 LV EF (BP MOD) 64 % 54-74 LV Diastolic Length (4C) 8.4 cm LV Systolic Length (4C) 6.6 cm LV Stroke Volume (4C MOD) 65 ml RV Dimensions 2D/MM RVID Diastole (2D) 3.9 cm 2.1-3.5 Atria Name Value Normal LA Dimensions LA Dimension (MM) 3.9 cm 2.7-3.8 LA Volume (4C A-L) 66 ml LA Volume (BP A-L) 72 ml RA Dimensions RA Systolic Major [place] Length (4C) 5.1 cm 2.2-2.8 RA Area (4C) 13.4 cm2 <=18.0 Report Signatures
== END 2025-02-11 08:33 | disposition home or self-care (01) ==
LOC: ANHCARD 08:35
PROVIDERS: PCP Family Medicine; Visit Provider Internal Medicine Cardiovascular Disease
DX: I35.0 Nonrheumatic aortic (valve) stenosis (principal); R93.1 Abnormal findings on diagnostic imaging of heart and coronary circulation
CPT/HCPCS: 93306

== ENCOUNTER 2025-03-08 11:47 | Outpatient (CLI) | payer MEDICARE, BC, SELFPAY ==
--- OUTSIDE RECORDS SUMMARY | 2016-01-12 05:10 | XMS_ITS | Continuity of Care Document ---
Author Organization [facility] Address [address] [facility] [address] [place] [address] Phone Care Team Providers Care Central Service Supply Distributor Name Role Phone Ashli MOORE, Toño Unavailable Unavaila ble Allergies, Adverse Reactions, Alerts Substance Reaction Status Criticality Tetanus Vaccines and Toxoid Active No Information Medications Medication Instructions Dosage Effective Dates (start - stop) Status Comments citalopram 20 mg tablet take 1 tablet (20MG) by oral route every day 20 MG - Active bumetanide 2 mg tablet take 1 tablet (2MG) by oral route every day 2 MG - Active pravastatin 80 mg tablet take 1 tablet (80MG) by oral route every day 80 MG - Active Midrin 65 mg-100 mg-325 mg capsule take 2 capsule by oral route to start, then 1 capsule every hour until relief, not to exceed 5 capsules within a 12 hour period - Active naproxen 500 mg tablet take 1 tablet (500MG) by oral route 2 times every day with food 500 MG - Active omeprazole 10 mg capsule,delayed release take 2 capsule (20MG) by oral route every day before a meal 20 MG - Active trazodone 50 mg tablet take 1 tablet (50MG) by oral route 3 times every day after meals 50 MG - Active tramadol 50 mg tablet take 1 tablet (50MG) by oral route every 6 hours as needed 50 MG - Active POTASSIUM (unknown strength) Not Available - Active VITAMIN AND MINERALS (unknown strength) Not Available - Active Procedures Procedure Date AFTER CATARACT LASER SURGERY YAG PC AFTER CATARACT LASER SURGERY OFFICE/OUTPATIENT VISIT, EST POSTOP FOLLOW-UP VISIT POSTOP FOLLOW-UP VISIT CATARACT SURG W/IOL, 1 STAGE No Charge Visit POSTOP FOLLOW-UP VISIT POSTOP FOLLOW-UP VISIT CATARACT SURG W/IOL, 1 STAGE OFFICE/OUTPATIENT VISIT, NEW OPHTHALMIC BIOMETRY OPHTHALMIC BIOMETRY Advance Directives Directive Yes / No Effective Date File Name No Information Encounters Encounter Description Practice Location Reason(s) For Visit Diagnoses Date Provider Providers Copied on Encounter [facility], [address] [place] [address], [id number], tel:[phone] [facility] No Information 6 Ashli Lundberg. [address], [address], [place], [address], . tel:[phone] Referring Provider: Toño Cornelius , [address], [place], [address]. tel:[phone] [facility], [address] [place] [address], [id number], tel:[phone] [facility] No Information 6 Ashli Lundberg. [address], [address], [place], [place], [address], [place]. tel:[phone] Referring Provider: Toño Cornelius , [address], [place], [address]. tel:[phone] OFFICE/OUTPA TIENT VISIT, EST [facility], [address] [place] [address], [id number], tel:[phone] [facility] Yag PC eval (chief complaint) Cataract extraction status of right eyeCataract extraction status of left eyeDry eyes, bilateralVitr eous floaters of both eyesPosterior capsular opacification visually significant of both eyesDermatoch alasis of left upper eyelidDermato chalasis of right upper eyelid 6 Ashli Lundberg. [address], [place], [place], [id number], [place]. tel:[phone] Referring Provider: Toño Cornelius , [address], [place], [address]. tel:[phone] [facility], [address] [place], [place] [address], [place], [place], [address], [place] tel:[phone] [facility] No Information 4 Abrahan Pruitt. [address] [place] [address], [address], [place], [place], [address], [place]. tel:[phone] Referring Provider: Edmond García, [address] [place] [address] [address], [place], [address]. tel:[phone] [facility], [address] [place] [address], [place], [place], [id number], [place] tel:[phone] [facility] Office discharge OU after gtts OU (chief complaint) No Information 4 Abrahan Pruitt. [address] [place] [address], [address], [place], [place], [address], [place]. tel:[phone] Referring Provider: Edmond García, [address] [place] [address] [address], [place], [address]. tel:[phone] [facility], [address] [place], [place] [address], [place], [place], [address], [place] tel:[phone] [facility] No Information 4 Abrahan Pruitt. [address] [place] [address], [address], [place], [place], [address], [place]. tel:[phone] Referring Provider: Edmond García, [address] [place] [address] [address], [place], [address]. tel:[phone] [facility], [address] [place] [address], [place], [id number], [place] tel:[phone] [facility] [place] No Information 4 Abrahan Priutt. [address], [address], [place], [place], [address], [place]. tel:[phone] Referring Provider: Edmond García, [address] [place] [address] [address], [place], [address]. tel:[phone] [facility], [address] [place] [address], [id number], [place] tel:[phone] [facility] Office itching,eye s feel tired,burni ng sensation OD (chief complaint) No Information 4 Ashli Lundberg. [address], [place], [place], [address], [place]. tel:[phone] Referring Provider: Toño Cornelius , [address], [place], [address]. tel:[phone] [facility], [address] [place] [address], [place], [place], [id number], [place] tel:[phone] [facility] no complaints OD (chief complaint) No Information 4 Abrahan Pruitt. [address] [place] [address], [address], [place], [place], [address], [place]. tel:[phone] Referring Provider: Edmond García, [address] [place] [address] [address], [place], [address]. tel:[phone] [facility], [address] [place] [address] [address], [place], [place], [id number], [place] tel:[phone] [facility] [place] No Information 4 Abrahan Pruitt. [address] [place] [address], [address], [place], [place], [address], [place]. tel:[phone] Referring Provider: Edmond García, [address], [place], [address]. tel:[phone] OFFICE/OUTPA TIENT VISIT, NEW [facility], [address], [place], [place], [id number], [place] tel:[phone] [facility] Office Senile nuclear sclerosisOthe r vitreous opacities 4 Abrahan Pruitt. [address], [address], [place], [place], [address], [place]. tel:[phone] Referring Provider: Edmond García, [address], [place], [address]. tel:[phone] Family History Family Member Type Diagnosis Age At Onset No Information Payers Payer name Insurance type Covered democrat ID Authoriza aide(s) [place] [id number] [facility] [id number] Social History Type Description Quantity Date Captured Comments Sex Female Smoking Status No Information Chief Complaint And Reason For Visit No Information Reason For Referral Reason For Referral No Information History Of Present Illness Encounter Date Complaint History Of Prese nt Illness Yag PC eval Patient presents for yag pc eval OU per Dr. Perez. Patient complains of decreased vision and glare, OU, OD>OS, started about 2 months ago, constant, and getting worse with time. discharge OU after gtts discharg e OU after gtts OU itching,eyes feel ti red,burning sensation itching,eyes feel tired,burning sensation OD no complaints no complaints OD Functional Status Date Functional Assessmen t No Information Instructions Date Instruction Additional Infor chio Impression/Plan - Schedule YAG P C OU. Related to Cataract extraction status of right eye Impression/Plan - Call if [facility] wor sens. Related to Cataract extraction status of left eye Impression/Plan - Pa tient instructed to use artificial tears as needed. Related to Dry eyes, bilateral Impression/Plan - Al l signs and risks of retinal detachment and tears were discussed in detail. Patient instructed to call the office immediately if any symptoms noted. Related to Vitreous floaters of both eyes Impression/Plan - Di scussed diagnosis in detail with patient. Discussed treatment options with patient. Discussed risks and benefits and patient understands. Patient elects to have YAG laser capsulotomy OD, then OS. Related to Posterior capsular opacification visually significant of both eyes Impression/Plan - No treatment is required at this time. Related to Dermatochalasis of left upper eyelid Impression/Plan Related to [place] tochalasis of right upper eyelid - Standard lens Aim distance 2nd eye 01/05/14 FLOYD Le Related to Cataract 1week, 1st eye Senile nuclear scler osis OUDiscussed lens options, Standard distanceRef CEC Mimi - Cataracts account for the patient's complaints. Discussed all risks, benefits, procedures and recovery. Patient understands changing glasses will not improve vision. Patient desires to have surgery, recommend phacoemulsification with intraocular lens. Educational materials provided:Cataract extraction/lens. OD then OS due to halos and glare while night driving, viewing television and reading, patient understands glasses rx will be needed after cataract surgery. Related to Senile nuclear sclerosis Other vitreous opaci ties OU - Discussed diagnosis in detail with patient. No treatment is required at this time. Discussed signs and symptoms of retinal detachment. Discussed signs and symptoms of PVD/floaters. Educational materials provided:Flashers/floaters. Related to Other vitreous opacities Assessments Type Assessment Date No Information Patient Care Teams Name Effective Dates (start - stop) Status Members No Information
--- OUTSIDE RECORDS SUMMARY | 2017-10-29 03:45 | XMS_ITS | Continuity of Care Document ---
Author Organization [facility] Address [address] [place] [address] Phone Care Team Providers Care Corn Grower Name Role Phone Wisam Ward MD Unavailable Unavailable Allergies, Adverse Reactions, Alerts Substance Reaction Status Criticality No Known Allergies Active No Inform ation Medications Medication Instructions Dosage Effective Dates (start - stop) Status Comments tramadol 50 mg tablet take 1 - 2 Tablet by oral route every 6 hours as needed 50 MG - Active rosuvastatin 40 mg tablet take 1 tablet by oral route every day 40 MG - Active omeprazole 40 mg capsule,delayed release take 1 capsule by oral route every day before a meal 40 MG - Active vitamin B complex tablet - Active citalopram 40 mg tablet take 1 tablet by oral route every day 40 MG - Active trazodone 50 mg tablet take 1 tablet by oral route 3 times every day after meals 50 MG - Active naproxen 500 mg tablet take 1 tablet by oral route 2 times every day with food 500 MG - Active Procedures Procedure Date OFFICE/OUTPATIENT VISIT [facility] Advance Directives Directive Yes / No Effective Date File Name No Information Encounters Encounter Description Practice Location Reason(s) For Visit Diagnoses Date Provider Providers Copied on Encounter OFFICE/OUTPAT IENT VISIT [facility], [address], [place], [address], [place] tel:[phone] [facility] [place] Trochanteric bursitis, right hipBody mass index (BMI) 36.0-36.9, adult May-0 8-201 8 Ed Joel. [address] [facility], [place], [place], [id number] . tel: [phone] Family History Family Member Type Diagnosis Age At Onset Brother Problem (finding) Alive and well Immunizations Vaccine Date Status Comments pneumococcal polysaccharide vaccine, 23 valent administered Source: Other Provid er Payers Payer name Insurance type Covered alliance party ID Ananth noble(s) Medicare E2 OT [id number] Blue Cross [facility] E2 OT [id number] Social History Type Description Quantity Date Captured [...]
--- OUTSIDE RECORDS SUMMARY | 2025-03-08 13:58 | XMS_ITS | Clinical Summary ---
Author Organization [facility] [address] Address [address] [place] [address] Care Team Providers Care Sanitary Landfill Operator Name Role Phone Chris Antonio MD Primary [...] on file Legal Sex Female 7:17 PM RECREATIONAL ASSISTANT Gender Identity Not on file Sexual Orientation Not on file Obstetrics History Last Filed Vital Signs Vital Sign Reading Time Taken Comments Blood Pressure 136/64 07/31/2024 8:36 AM RECREATIONAL ASSISTANT Pulse 72 07/31/2024 8:36 AM RECREATIONAL ASSISTANT Temperature - - Respiratory Rate - - Oxygen Saturation 97% 07/31/2024 8:36 AM RECREATIONAL ASSISTANT Inhaled Oxygen Concentration - - Weight 84.4 kg (186 lb) 07/31/2024 8:36 AM RECREATIONAL ASSISTANT Height 152.4 cm (5') 07/31/2024 8:36 AM RECREATIONAL ASSISTANT Body Mass Index 36.33 07/31/2024 8:36 AM RECREATIONAL ASSISTANT Plan of Treatment Health Maintenance Due Date Last Done Comments Breast Cancer Screening-Mammogram 1950 Colon Cancer Screening-Colonoscopy 1950 Depression Screening 1950 Fall Risk Assessment 1950 Hepatitis C Screening 1950 Osteoporosis Screening-Bone Density Scan 1950 DTaP/Tdap/Td Vaccine (1 - Tdap) 1961 Hepatitis B Screening 1968 Well Visit 65+ 2015 Covid-19 Vaccine (2024-07 6 season) 2025 03/23/2023, 11/28/2022, 05/30/2022, Additional history exists Influenza Vaccine (#1) 2025 , 04/04/2022, 04/07/2021, Additional history exists Pneumococcal vaccine 65+ Completed 018, 03/24/2017, 06/24/2015, Additional history exists Zoster Vaccine Completed 07/22/2020, 04/07/2018 Insurance [place] [address] Care Teams Sanitary Landfill Operator Relationship Specialty Start Date End Date Chris Antonio MD [address] [facility] [address] [place] [address] PCP - General Family Practice 01/31/24
[2025-03-08 18:51] LABS: Hematocrit 40.4 % (37.0-47.0); Hemoglobin 12.5 g/dL (12.0-15.0); Immature Granulocyte Percent A 0.3 % (0-0.5); Lymphocytes Absolute Auto 1.86 K/mm3 (0.9-3.2); Mean Corpuscular HGB Conc 30.9 g/dl (32-36); Mean Corpuscular Hemoglobin 28.5 pg (26-34); Mean Corpuscular Volume 92.2 fl (80-100); Nucleated Red Blood Cells Absolute Auto 0.000 K/mm3 (0.0-0.012); Nucleated Red Blood Cells Perc 0.0 % (0.0-0.2); Platelet Count Result 230 k/mm3 (150-375); Red Blood Count 4.38 M/mm3 (4.2-5.4); White Blood Count 6.6 K/mm3 (4.5-10.0)
[2025-03-08 18:52] LABS: Alanine Aminotransferase 15 U/L (6-35); Albumin Level 4.2 g/dL (3.5-5.1); Alkaline Phosphatase 84 U/L (38-126); Anion Gap 8 mmol/L (4-12); Aspartate Amino Transferase 36 U/L (14-36); Bilirubin,Total 0.3 mg/dL (0.2-1.3); Blood Urea Nitrogen 17 mg/dL (7-17); Calcium 9.1 mg/dL (8.4-10.2); Carbon Dioxide 24 mmol/L (22-30); Chloride 106 mmol/L (98-107); Cholesterol 185 mg/dL (0-200); Estimated Glomerular Filt Rate 45; Glucose 120 mg/dL (65-110); HDL Direct 84 mg/dL; Potassium 4.2 mmol/L (3.4-5.0); Sodium 138 mmol/L (137-145); Total Protein 7.2 g/dL (6.3-8.2); Triglycerides 110 mg/dL (<150)
[2025-03-08 19:36] LABS: Hemoglobin A1C 6.6 % (<5.7)
== END 2025-03-08 11:48 | disposition home or self-care (01) ==
LOC: ANHGOSHLAB 11:47
PROVIDERS: PCP Nurse Practitioner Family; Visit Provider Nurse Practitioner Family
DX: E78.5 Hyperlipidemia, unspecified (principal); E11.9 Type 2 diabetes mellitus without complications; I10 Essential (primary) hypertension; E55.9 Vitamin D deficiency, unspecified
CPT/HCPCS: 36415; 80053; 80061; 82306; 83036; 85025

== ENCOUNTER 2025-03-27 02:54 | Inpatient (IN) | payer MEDICARE, BC, SELFPAY ==
--- OUTSIDE RECORDS SUMMARY | 2017-10-29 03:45 | XMS_ITS | Continuity of Care Document ---
Author Organization [facility] Address [address] [facility] [address] [place] [address] Phone Care Team Providers Care Life Insurance Specialist Name Role Phone Wisam Ward MD Unavailable Unavailable Allergies, Adverse Reactions, Alerts Substance Reaction Status Criticality No Known Allergies Active No Inform ation Medications Medication Instructions Dosage Effective Dates (start - stop) Status Comments naproxen 500 mg tablet take 1 tablet by oral route 2 times every day with food 500 MG - Active trazodone 50 mg tablet take 1 tablet by oral route 3 times every day after meals 50 MG - Active citalopram 40 mg tablet take 1 tablet by oral route every day 40 MG - Active vitamin B complex tablet - Active omeprazole 40 mg capsule,delayed release take 1 capsule by oral route every day before a meal 40 MG - Active rosuvastatin 40 mg tablet take 1 tablet by oral route every day 40 MG - Active tramadol 50 mg tablet take 1 - 2 Tablet by oral route every 6 hours as needed 50 MG - Active Procedures Procedure Date OFFICE/OUTPATIENT VISIT [facility] Advance Directives Directive Yes / No Effective Date File Name No Information Encounters Encounter Description Practice Location Reason(s) For Visit Diagnoses Date Provider Providers Copied on Encounter OFFICE/OUTPAT IENT VISIT [facility], [address], [place], [address], [place] tel:[phone] [facility] [place] Trochanteric bursitis, right hipBody mass index (BMI) 36.0-36.9, adult May-0 8-201 8 Ed Joel. [address] [facility], [place], [place], [address] . tel: [phone] Family History Family Member Type Diagnosis Age At Onset Brother Problem (finding) Alive and well Immunizations Vaccine Date Status Comments pneumococcal polysaccharide vaccine, 23 valent administered Source: Other Provid er Payers Payer name Insurance type Covered republican ID Ananth noble(s) Medicare E2 OT [id number] Blue Cross [facility] E2 OT [id number] Social History Type Description Quantity Date Captured Comments Alcohol Use Details Unknown Caffeine Use Details Unknown Tobacco Use Status Never smoked tobacco 2017 Smoking Status Never smoker Non-Smoking Tobacco Use Details : No Details Available : No Details Available Sex Female Vital Signs Date / Time: Height Weight BMI Pulse Rate Blood Pressure Temperature Respiratory Rate Body Surface Area Head Circumference Head Circ. Percentile Wt./John. Percentile BMI percentile Pulse Ox Inhaled Ox 11:53 AM 61.00 in 87.543 kg (193.00 lbs) 36.4 7 kg/m eter (2) 120/80 mm[Hg] Chief Complaint And Reason For Visit No Information Reason For Referral Reason For Referral No Information Plan Of Treatment Date Type Action Status Referral Ordered: X-RAY EXAM HIP UNI W PELVIS 2-3 VIEWS RT ordered History Of Present Illness Encounter Date Complaint History Of Prese nt Illness No Information Functional Status Date Functional Assessmen t No Information Instructions Date Instruction Additional Infor mation Elevate extremity above heart. R elated to Trochanteric bursitis, right hip Immobilize as directed. Related to Trochanteric bursitis, right hip Giving encouragement to exercise Related to Body mass index (BMI) 36.0-36.9, adult Assessments Type Assessment Date assessment Trochanteric bursitis, right hip assessment Body mass index (BMI) 36.0-36.9, adult Patient Care Teams Name Effective Dates (start - stop) Status Members No Information
--- OUTSIDE RECORDS SUMMARY | 2017-10-29 03:45 | XMS_ITS | Continuity of Care Document ---
Author Organization [facility] Address [address] [facility] [address] [place] [address] Phone Care Team Providers Care Metal Buffer Name Role Phone Wisam Ward MD Unavailable [...] - Active Procedures Procedure Date OFFICE/OUTPATIENT VISIT [facility] Advance Directives Directive Yes / No Effective Date File Name No Information Encounters Encounter Description Practice Location Reason(s) For Visit Diagnoses Date Provider Providers Copied on Encounter OFFICE/OUTPAT IENT VISIT [facility], [address], [place], [address], [place] tel:[phone] [facility] [place] Trochanteric bursitis, right hipBody mass index (BMI) 36.0-36.9, adult May-0 8-201 8 Ed Joel. [address] [facility], [place], [place], [address] . tel: [phone] Family History Family Member Type Diagnosis Age At Onset Brother Problem (finding) Alive and well Immunizations Vaccine Date Status Comments pneumococcal polysaccharide vaccine, 23 valent administered Source: Other Provid er Payers Payer name Insurance type Covered libertarian ID Ananth noble(s) Medicare E2 OT [id number] Blue Cross [facility] E2 OT [id number] Social History Type Description Quantity Date Captured [...]
[2025-03-27] VITALS (54 sets, daily range): BP systolic 106–166; BP diastolic 51–97; PULSE 58–100; RESP 13–24; TEMP 36.7–37; O2SAT 87–98; BMI 38.7
--- NOTE | 2025-03-27 | ECHO_ITS ---
Patient Info Name: Ashlie Lees Age: 74 years : 1950 Gender: Female Ht: 60 in Wt: 195 lbs BSA: 1.98 m2 HR: 89 bpm BP: 130 / 68 mmHg Technical Quality: Good Exam Date: 03/27/2025 9:52 AM Patient Status: I Admit Date: 03/27/2025 Exam Type: CA echo dop color flow w con Complete two-dimensional, color flow and Doppler transthoracic echocardiogram is performed with contrast to opacify the left ventricle and to improve the deliniation of the left ventricle endocardial borders. Staff Referring Physician: Tania Cesar Sane Nurse: Tara Gaspar Attending Provider: Roni Fajardo Contrast/Agitated Saline Contrast/Ag. Saline: Definity Amount: 2.00 ml Summary 1. Definity contrast administered improved wall motion interpretation. 2. Left ventricular chamber dimension is normal. 3. Left ventricular systolic function is normal, estimated at 60-65. 4. There is moderate concentric increased left ventricular wall thickness. 5. The left ventricular diastolic function is grade I diastolic dysfunction. 6. E/e' 10 is mildly elevated. 7. The aortic valve is not well visualized. Possible bicuspid aortic valve. 8. There is severe aortic valve sclerosis. 9. There is moderate aortic valve stenosis with a peak velocity of 312 cm/s, mean gradient of 21 mmHg, and aortic valve area of 1.5 cm2. 10. There is mild to moderate aortic valve regurgitation. Left Ventricle E/e' 10 is mildly elevated. Left ventricular chamber dimension is normal. Left ventricular systolic function is normal, estimated at 60-65. There is moderate concentric increased left ventricular wall thickness. The left ventricular diastolic function is grade I diastolic dysfunction. Definity contrast administered improved wall motion interpretation. Right Ventricle Right ventricular chamber dimension is normal. Right ventricular systolic function is normal. Left Atria Left atrial chamber dimension is normal. Right Atria Right atrial chamber dimension is normal. Aortic Valve The aortic valve is not well visualized. Possible bicuspid aortic valve. There is severe aortic valve sclerosis. There is moderate aortic valve stenosis with a peak velocity of 312 cm/s, mean gradient of 21 mmHg, and aortic valve area of 1.5 cm2. There is mild to moderate aortic valve regurgitation. Pulmonic Valve There is no pulmonic regurgitation. Mitral Valve There is no mitral valve stenosis. There is no mitral valve regurgitation. Tricuspid Valve There is no tricuspid valve regurgitation. Pericardium/Pleural There is no pericardial effusion. Inferior Vena Cava Normal inferior vena cava with >50% collapse upon inspiration consistent with normal right atrial pressure, 5 mmHg. Aorta The aortic root size at the sinus of Valsalva is normal. Left Ventricular Outflow Tract Name Value Normal LVOT 2D LVOT Diameter 1.8 cm LVOT Doppler LVOT Peak Velocity 147 cm/s LVOT Peak Gradient 8 mmHg LVOT Mean Gradient 5 mmHg LVOT VTI 33 cm LVOT VTI/AV VTI Ratio 0.6 LVOT Stroke Volume 82 ml LVOT CO 6.9 l/min LVOT CI 3.5 l/min/m2 Pulmonic Valve Name Value Normal RVOT Doppler RVOT Peak Velocity 156 cm/s RVOT Peak Gradient 10 mmHg PV Doppler PV Peak Velocity 174 cm/s PV Peak Gradient 12 mmHg Mitral Valve Name Value Normal MV Diastolic Function MV E Peak Velocity 89 cm/s MV A Peak Velocity 157 cm/s MV E/A 0.6 MV Decel Time (PW) 571 ms MV Annular TDI MV E/e' (Septal) 18.9 MV E/e' (Lateral) 7.3 MV E/e' (Average) 13.1 Tricuspid Valve Name Value Normal Estimated PAP/RSVP RA Pressure 5 mmHg <=5 TV Annular TDI TV Lateral Franci s' Velocity 11.5 cm/s >=9.5 Aortic Valve Name Value Normal AV Doppler AV Peak Velocity 312 cm/s AV Peak Gradient 38 mmHg AV Mean Gradient 21 mmHg AV VTI 56 cm AV Area (Cont Eq VTI) 1.5 cm2 >=3.0 AV Area (Cont Eq John) 1.2 cm2 AV DI (John) 0.47 AV Regurgitation 2D LVOT Area 2.5 cm2 Ventricles Name Value Normal LV Dimensions 2D/MM IVS Diastolic Thickness (2D) 1.1 cm 0.6-1.0 LVID Diastole (2D) 2.9 cm 3.8-5.2 LVIW Diastolic Thickness (2D) 1.4 cm 0.6-0.9 LVID Systole (2D) 1.9 cm 2.2-3.5 LVOT Diameter 1.8 cm LV Mass (2D Cubed) 114.68 g 67.00-162.00 LV Mass Index (2D Cubed) 58 g/m2 43-95 Relative Wall Thickness (2D) 0.97 <=0.42 LV Fractional Shortening/Ejection Fraction 2D/MM LV Fractional Shortening (2D) 34 % 27-45 LV EF (2D Teichholz) 65 % LV Diastolic Volume (4C MOD) 85 ml LV EF (4C MOD) 66 % LV Diastolic Volume (2C MOD) 58 ml LV EF (2C MOD) 57 % LV Diastolic Volume (BP MOD) 75 ml 46-106 LV Diastolic Volume Index (BP MOD) 38 ml/m2 29-61 LV Systolic Volume (BP MOD) 27 ml 14-42 LV Systolic Volume Index (BP MOD) 14 ml/m2 8-24 LV EF (BP MOD) 64 % 54-74 LV Diastolic Length (4C) 8.1 cm LV Systolic Length (4C) 6.6 cm LV Stroke Volume (4C MOD) 56 ml Atria Name Value Normal LA Dimensions LA Volume (4C A-L) 11 ml LA Volume (BP A-L) 26 ml RA Dimensions RA Systolic Major [place] Length (4C) 4.1 cm 2.2-2.8 RA Area (4C) 6.8 cm2 <=18.0 Report Signatures
--- NOTE | ~2025-03-27 | XR_ITS ---
Examination: XR chest 2V Clinical History: CHEST PAIN Comparison: 05/01/2023 Technique: PA and Lateral Findings: Large hiatal hernia. Cardiomediastinal silhouette normal size and configuration. Left basilar atelectasis. Lungs otherwise clear. No acute bony abnormality. Spinal stimulator leads. IMPRESSION: 1. No acute cardiopulmonary findings. Reviewed, dictated and finalized at location R.
--- NOTE | ~2025-03-27 | CT_ITS ---
EXAMINATION: CTA chest abdomen pelvis DATE: 03/27/2025 04:08 INDICATION: Chest pain. TECHNIQUE: Computed tomographic angiography (CTA) of the chest, abdomen, and pelvis was performed with 100 mL Omnipaque-350 intravenous contrast. Automated exposure control and iterative reconstruction technique were employed. The dose- length product was 1345.64 mGy-cm. Maximum intensity projection 3D- reconstructions of the aorta and other arteries were constructed by the technologist on a separate workstation. COMPARISON: Chest CT 04/16/2023 FINDINGS: CHEST CTA: The lungs demonstrate mild atelectasis. Calcified right lung nodules and calcified right hilar and mediastinal lymph nodes are consistent with old granulomatous disease. No pleural effusion. Cardiomegaly is noted. No pericardial effusion. There is a moderate-sized sliding hiatal hernia. There is aortic atherosclerosis. There is no pulmonary embolus. There is severe thoracic spondylosis. Thoracic dextroscoliosis is noted. ABDOMEN AND PELVIS CTA: Calcifications of the liver and spleen are consistent with old granulomatous disease. The gallbladder is normal. There are calcifications of the pancreas, consistent with chronic pancreatitis. There is a 13 mm cyst in the head of the pancreas, likely a pseudocyst. The adrenal glands are normal. There is cortical thinning of the kidneys. There are bilateral inguinal hernias containing fat. There is diverticulosis of the colon without evidence of diverticulitis. The appendix is normal. Stool distends the rectum. There are no pathologically enlarged lymph nodes. There is no free intraperitoneal fluid. There is no significant stenosis of celiac axis, superior mesenteric artery, the renal arteries, or inferior mesenteric artery. Epidural electrodes are noted. There is severe lumbar spondylosis. Lumbar levoscoliosis is noted. IMPRESSION: 1. Aortic atherosclerosis. No aneurysm or dissection. 2. Moderate-sized sliding hiatal hernia. Reviewed, dictated and finalized at location E.
--- OUTSIDE RECORDS SUMMARY | 2025-03-27 02:56 | XMS_ITS | Clinical Summary ---
Author Organization [facility] Address [address] [place] [address] Care Team Providers Care Straddle Buggy Operator Name Role Phone Von Grace MD Primary Care Provider [phone] Encounters Date Type Department Care Team Description 02/10/2025 10:21 AM CDT - 02/10/2025 11:59 PM CDT Hospital Encounter [facility] Mammography ONE [facility] [place] [address] Stefania Velasquez FNP Discharge Disposition: Home or Self Care (Routine Discharge) 02/10/2025 Travel from Last 3 Months Social History Tobacco Use Types Packs/Day Years Used Date Smoking Tobacco: Never Assessed Comments Unknown Sex and Gender Information Value Date Recorded Sex Assigned at Female 12/18/2024 6:38 AM CDT Legal Sex Female 4:54 PM CDT Gender Identity Not on file Sexual Orientation Not on file Plan of Treatment Health Maintenance Due Date Last Done Comments Colorectal Cancer Screening Colonoscopy (10 Years) 1950 Hepatitis C 1968 DTaP, Tdap and Td Vaccines (1 - Tdap) 1969 Mammogram Screening 1990 Annual Medicare Wellness Visit 2015 COVID-19 Vaccine ( season) 2025 03/16/2024, 03/23/2023, 11/28/2022, Additional history exists Pneumococcal Vaccine: 50+ Years Completed 03/26/2018, 02/13/2018, 03/24/2017, Additional history exists Zoster Vaccines Completed 07/22/2020, 03/24, 04/07/2018 RSV Immunization or 60+ Years Completed 02/27/2023 Dexa Scan (General) Completed 02/10/2025 Meningococcal B Vaccine Aged Out No l onger eligible based on patient's age to complete this topic Meningococcal Vaccine Aged Out No arminda jadiel eligible based on patient's age to complete this topic RSV Immunizations Under 20 Months Aged Out No longer eligible based on patient's age to complete this topic Medical Devices Implanted Type Area Slab Grinder Device Identifier Shelf Expiration Date Model / Serial / Lot Stimulator Lead Implant- 024 Implanted:Qty: 1 on 10/09/2023 Lead Implant Spine Thoracic [employer] [id number] / / Description:T-6 Stimulator Implant- 024 Implanted:Qty: 1 on 10/09/2023 Stimulator Implant Back [employer] [id number] / [id number] / Description:MR CONDITIONAL A T 1.5 T ONLY, NEED REMOTE TO DO IMPEDANCE CHECK AND TURN OFF STIMULATION, FOLLOW SCAN CONDITIONS IN MRI TECHNICAL MANUAL Procedures Procedure Name Priority Date/Time Associated Diagnosis Comments BONE DENSITY/DEXA Routine 02/10/2025 11: 08 AM CDT Asymptomatic menopausal state from Last 3 Months Results * BONE DENSITY/DEXA (02/10/2025 11:08 AM CDT) Anatomical Region Laterality Modality Bone Mammography 02/10/2025 11:0 9 AM CDT Impressions 02/10/2025 11:15 AM CDT IMPRESSION: WHO Classification: Osteoporosis RECOMMENDATIONS: All patients should ensure an adequate intake of dietary calcium and vitamin D. The NOF recommend adults under the age of 50 need 1000 mg of calcium and 400-800 IU of vitamin D daily. Effective therapy for the prevention and treatment of osteoporosis include bisphosphonates. FOLLOW-UP: People with diagnosed cases of osteoporosis or at high risk for fracture should have regular bone mineral density test. For patients eligible for Medicare, routine testing is allowed once every 2 years. Testing frequency can be increased to one year for patients who have rapidly progressing disease, those who are receiving or discontinuing medical therapy to restore bone mass, or have additional risk factors. Ordered By: STEFANIA VELASQUEZ Interpreted By: Erasmo Bhakta, 02/10/2025 11:09 AM Narrative 02/10/2025 11:15 AM CDT [facility] [address] [place] [address] EXAMINATION: BONE DENSITY/DEXA INDICATIONS: Asymptomatic menopausal state COMPARISON: None TECHNIQUE: DEXA bone mineral density evaluation was performed in the AP projection over the lumbar spine and both hips utilizing standard imaging techniques. FINDINGS: The BMD measured at the AP spine L1-L4 is 0.884 g/cm? with a T-score of -1.5. The BMD measured at the left femoral neck is 0.489 g/cm? with a T-score of -3.2. The BMD measured at the left hip is 0.908 g/cm? with a T-score of -0.3. The BMD measured at the right femoral neck is 0.847 g/cm? with a T-score of 0.0. The BMD measured at the right hip is 0.880 g/cm? with a T-score of -0.5. FRAX 10-year fracture risk: Major Osteoporotic Fracture: 51% Hip Fracture: 3.6% Procedure Note Erasmo Bhakta MD - 02/10/2025 [facility] [address] [place] [address] EXAMINATION: BONE DENSITY/DEXA INDICATIONS: Asymptomatic menopausal state COMPARISON: None TECHNIQUE: DEXA bone mineral density evaluation was performed in the APprojection over the lumbar spine and both hips utilizing standard imagingtechniques. FINDINGS: The BMD measured at the AP spine L1-L4 is 0.884 g/cm? with a T-score of-1.5. The BMD measured at the left femoral neck is 0.489 g/cm? with a T-score of-3.2. The BMD measured at the left hip is 0.908 g/cm? with a T-score of -0.3. The BMD measured at the right femoral neck is 0.847 g/cm? with a T-scoreof 0.0. The BMD measured at the right hip is 0.880 g/cm? with a T-score of -0.5. FRAX 10-year fracture risk: Major Osteoporotic Fracture: 51% Hip Fracture: 3.6% IMPRESSION: WHO Classification: Osteoporosis RECOMMENDATIONS: All patients should ensure an adequate intake of dietary calcium andvitamin D. The NOF recommend adults under the age of 50 need 1000 mg ofcalcium and 400-800 IU of vitamin D daily. Effective therapy for theprevention and treatment of osteoporosis include bisphosphonates. FOLLOW-UP: People with diagnosed cases of osteoporosis or at high risk for fractureshould have regular bone mineral density test. For patients eligible forMedicare, routine testing is allowed once every 2 years. Testing frequencycan be increased to one year for patients who have rapidly progressingdisease, those who are receiving or discontinuing medical therapy torestore bone mass, or have additional risk factors. Ordered By: STEFANIA VELASQUEZ Interpreted By: Erasmo Bhakta, 02/10/2025 11:09 AM Stefania Velasquez [employer] TEST TECHNICIAN DEXA Final Result from Last 3 Months Insurance MEDICARE [facility] Care Teams Straddle Buggy Operator Relationship Specialty Start Date End Date Von Grace MD PCP - General 03/28/15
--- OUTSIDE RECORDS SUMMARY | 2025-03-27 02:56 | XMS_ITS | Encounter Summary ---
Author Organization [facility] Address [address] [place] [address] Care Team Providers Care Construction Management Instructor Name Role Phone Von Grace MD Primary Care Provider [phone] Encounter Details Date Type Department Care Team (Late st Contact Info) Description 04/27/2017 [place] [address] , Generic ConversionMD Social History Tobacco Use Types Packs/Day Years [...] on filedocumented in this encounter Care Teams Construction Management Instructor Relationship Specialty Start Date End Date Von Grace MD PCP - General 03/28/15 documented as of this encounter
--- OUTSIDE RECORDS SUMMARY | 2025-03-27 02:56 | XMS_ITS | Clinical Summary ---
Author Organization [facility] [address] Address [address] [place] [address] Care Team Providers Care Process Excellence Manager Name Role Phone Chris Antonio MD Primary [...] on file Legal Sex Female 7:17 PM EMS INSTRUCTOR Gender Identity Not on file Sexual Orientation Not on file Obstetrics History Last Filed Vital Signs Vital Sign Reading Time Taken Comments Blood Pressure 136/64 07/31/2024 8:36 AM EMS INSTRUCTOR Pulse 72 07/31/2024 8:36 AM EMS INSTRUCTOR Temperature - - Respiratory Rate - - Oxygen Saturation 97% 07/31/2024 8:36 AM EMS INSTRUCTOR Inhaled Oxygen Concentration - - Weight 84.4 kg (186 lb) 07/31/2024 8:36 AM EMS INSTRUCTOR Height 152.4 cm (5') 07/31/2024 8:36 AM EMS INSTRUCTOR Body Mass Index 36.33 07/31/2024 8:36 AM EMS INSTRUCTOR Plan of Treatment Health Maintenance Due Date [...] Completed 07/22/2020, 04/07/2018 Insurance [place] [address] Care Teams Process Excellence Manager Relationship Specialty Start Date End Date Chris Antonio MD [address] [facility] [address] [place] [address] PCP - General Family Practice 01/31/24
--- OUTSIDE RECORDS SUMMARY | 2025-03-27 02:56 | XMS_ITS | Data Portability ---
Author Organization [facility], Main Office Address [address] [place] [address] Care Team Providers Care Quantitative Analyst Developer Name Role Phone MO LOFTON Primary Care Provider [phone] MO LOFTON Referring Provider [phone] RAFFY MORENO Primary Care Provider RAFFY MORENO Referring Provider [phone] Assessment Encounter Date Assessment Date Assessment LastModified by Organization Details LastModified Time 08/29/2022 08/29/2022 HPI: Patient returns. It has been 3 months since her last cortisone injection into both of her trochanteric bursae. She did go on her trip. She drove to [place] as well as [place] since I saw her last. She did [...] abductor testing in both hips associated with ifbd-or-erzaqiup pain. Hips otherwise have full range of [...] patient more than half of this in [id number] conversation Not available 08/29/2022 15:56:47 11/28/2022 11/28/2022 [...] procedure, administere d by provider 2022 023 [email or web address] In-Office Order, Internal Use Only DO Not Attach Compendium DO Not Attach Compendium, Do Not Delete/merge, [id number] 3 15:12:19 injection/a spiration joint/bursa (PROC) - in office procedure, administere d by provider 2022 023 [email or web address] In-Office Order, Internal Use Only DO Not Attach Compendium DO Not Attach Compendium, Do Not Delete/merge, [id number] 3 15:01:55 injection/a spiration joint/bursa (PROC) - in office procedure, administere d by provider 2022 023 [email or web address] Not available 14:53:41 Surgeries None recorded. Imaging XR, hip + pelvis, bilateral 2022 023 [email or web address] [facility] [place], [address], [place], [address], 16:00:47 Medication Orders Kenalog 10 mg/mL suspension for injection 2022 023 [facility]97140, [address] [facility] [place], [id number], 3 16:11:19 ropivacaine (PF) 5 mg/mL (0.5 %) injection solution 2022 023 [facility] #56626, [address] [facility] [place], [id number], 3 16:11:19 Kenalog 10 mg/mL suspension for injection 2022 023 [facility] #70572, [address] [facility] [place], [id number], 3 15:02:14 ropivacaine (PF) 5 mg/mL (0.5 %) injection solution 2022 023 [facility] #02069, [address] [facility] [place], [id number], 3 15:02:14 Kenalog 10 mg/mL suspension for injection 2022 023 [email or web address] [facility]50845, [address] [facility] [place], [id number], 3 14:55:20 ropivacaine (PF) 5 mg/mL (0.5 %) injection solution 2022 023 [email or web address] [facility] #05534, [address] [facility] [place], [place], [id number], 3 14:55:40 Patient TargetsNo targets recorded. Patient InstructionsNo instructions recorded. Reason for Referral None Reported. Results Created Date Observation Date Name Description Value Unit Range Abnormal Flag Note LastModifiedBy Organization Detail LastModifiedTime 11/29/19 23 XR, hip + pelvi s, bilat eral No observ ation record ed. [facility] [place] [address], [place], [address], 11/28/2022 15:49:45 Result Notes None recorded. Problems Name Problem SNOMED Code Status Onset Date Resolution Date Notes Provider Name and Address Organization Details Recorded Time Localized, primary osteoarthr itis of the hand 573352980 Active Not Available [facility] 3 14:09:03 Pain of joint of wrist 821144900 Active Not Available [facility] 3 14:09:03 Partial thickness rotator cuff tear 348183374 Active Not Available [facility] 3 14:09:03 Synovitis and tenosynovi tis 593838524 Active Not Available [facility] 3 14:09:03 Shoulder joint pain 209685535 Active Not Available [facility] 3 14:09:03 Low back pain 584504632 Active Not Available [facility] 3 14:09:03 Enthesopat hy of hip region 12366794 Active Not Available [facility] 3 14:09:03 Lesion of ulnar nerve 621315043 Active Not Available [facility] 3 14:09:03 Carpal tunnel syndrome 97569741 Active Not Available [facility] 3 14:09:04 Degenerati on of interverte bral disc 70907376 Active Not Available [facility] 3 14:09:04 Pain in limb 75732366 Active Not Available [facility] 3 14:09:04 Foot pain 44098725 Active 2019 Not Available [facility] 3 14:09:04 Closed fracture of fifth metatarsal bone 67036553 Active 2019 Not Available [facility] 3 14:09:04 Trochanter ic bursitis of left hip 7566143011500 03 Active 2021 Not Available [facility] 3 14:09:03 Trochanter ic bursitis of right hip 0351278899650 00 Active 2021 Not Available [facility] 3 14:09:03 Pain of left knee joint 6526880311605 07 Active 2021 Not Available [facility] 3 14:09:04 Bilateral trochanter ic bursitis 3935567356210 9109 Active 2021 Not Available [facility] 3 14:09:03 Osteoarthr itis 627155797 Active 2021 Not Available [facility] 3 14:09:04 Osteoarthr itis of left knee joint 7807567379966 09 Active 2022 MARTY VarmaA null, [employer] 3 14:51:13 Pain of bilateral hip joints 4123092163407 9100 Active 2022 MARTY VarmaA null, [employer] 3 14:52:03 Problem Notes None recorded. Procedures Surgical History Date Name Laterality Status Provider Name and Address Organization Details Recorded Time Knee Surgery completed Not Available [facility] 08/22/2022 14:08:51 Imaging Results None recorded. Procedure Notes None recorded. Medical Equipment None Reported. Allergies Allergen ID Allergen Name Allergen Category Reaction Reaction Severity Criticality Documentation Date Start Date Code Code System Note Provider Name and Address Organization Details Recorded Time 54920 amoxicill in medicatio n Not available Not available Not available 08/22/2022 723 RxNorm Not Available [facility] 3 14:10:21 17908 latex environme nt,medica tion Not available Not available Not available 11/28/2022 10298 91 RxNorm HU Varma null, [facility] 3 14:54:14 Medications Name Sig Start Date [...] suspension for injection in office 2022 active [facility]: 0003- 0494- 20 Not Available Not Available [...] administe red by the provider 11/29 completed [facility]: 0409- 4276- 17 Not Available Not Available [...] %) injection solution in office 2022 active [facility] [address] -064- 01 Not Available Not Available Not Available Fluvirin 4190-7512 45 mcg (15 mcg x 3)/0.5 mL intramuscul ar suspension ADM 0.5ML UTD 03/05 completed Not Available Not Available Not Available isomethepte ne 65 mg-caffeine 20 mg-acetamin ophen 325 mg tablet 07/16 completed Not Available Not Available Not Available potassium chloride ER 20 mEq tablet,exte nded release 03/05 completed Not Available Not Available Not Available Fluvirin 1244-3451 45 mcg (15 mcg x 3)/0.5 mL intramuscul ar suspension INJECT 0.5 ML INTRAMUSC ULARLY DIRECTED. 03/05 completed Not Available Not Available Not Available Fluvirin 3405-9447 45 mcg (15 mcg x 3)/0.5 mL intramuscul ar suspension 03/05 completed Not Available Not Available Not Available Fluzone High-Dose 4075-0975 (PF) 180 mcg/0.5 mL intramuscul ar syringe 03/05 completed Not Available Not Available Not Available Fluzone High-Dose 8122-5674 (PF) 180 mcg/0.5 mL intramuscul ar syringe ADM 0.5ML IM UTD active Not Available Not Available No t Available Shingrix (PF) 50 mcg/0.5 mL intramuscul ar suspension, kit 03/10 completed Not Available Not Available Not Available Fluad 65yr up(PF)45 mcg(15 mcgx3)/0.5 mL intramuscul ar [...] Updated DateTime 08/29/2022 154.94 cm Esthela Almeida [facility] [address] [place] [address] [facility] 08/29/2022 14:50:48 Date Recorded Body height Body mass index (BMI) Body weight Provider Name and Address Organization Details Last Updated DateTime 11/28/2022 152.4 cm 37.7 kg/m2 63791.33 g Esthela Almeida [facility] [employer] [facility] [address] [facility] 11/28/2022 15:00:30 Date Recorded Body height Provider Name an d Address Organization Details Last Updated DateTime 03/13/2023 152.4 cm Esthela Almeida [facility] [address] [facility] 03/13/2023 15:10:04 Date Recorded Body height Provider Name an d Address Organization Details Last Updated DateTime 05/11/2022 154.94 cm Not Available [facility] 14:08:57 Date Recorded Body height Provider Name an d Address Organization Details Last Updated DateTime 05/30/2022 154.94 cm Not Available [facility] 3 14:08:57 Social History None recorded. Functional Status Question Answer Note LastModified by Organizat ion Details LastModified Time What is your level of alcohol consumption? None [id number] Information not available 08/22/2022 Mental Status None recorded. Family History Relationship Description Onset Age of this Age Resolved Age Notes LastModified by Organization Details LastModified Time Sister Heart disease [id number] Not available 08/22/2022 14:08:52 Father Family history of malignant neoplasm [id number] Not available 08/22/2022 14:08:52 Father Hypertensive disorder [id number] Not available 08/22/2022 14:08:52 Mother Hypertensive disorder [id number] Not available 08/22/2022 14:08:52 Medical History Condition Response SKIN PROBLEMS Y HYPERTENSION Y Gynecological HistoryNo gynecological history recorded. Obstetrics History GPAL:G 0 P 0 0 0 0 Past Encounters Encounter ID Performer Location Encounter Start Date Encounter Closed Date Diagnosis/Indication Diagnosis SNOMED-CT Code Diagnosis ICD10 Code Diagnosis IMO Codes Diagnosis Note [id number] Carrillo Garcia MD [facility] [place] [address] [facility] [address] [place] [address] 04/14/2021 00:00:00 04/14/2021 16:16:22 [id number] Carrillo Garcia MD [facility] [place] [address] [facility] [address] [place] [address] 11/29/2021 00:00:00 11/29/2021 15:56:34 [id number] MD STACE[facility] [place] [address] [facility] [address] [place] [address] 02/21/2022 00:00:00 02/21/2022 17:28:51 [id number] Carrillo Garcia MD [facility] [place] [address] [facility] [address] [place] [address] 05/11/2022 00:00:00 05/11/2022 16:20:14 [id number] Carrillo Garcia MD [facility] [place] [address] [facility] [address] [place] [address] 05/30/2022 00:00:00 05/30/2022 10:31:47 [id number] Carrillo Garcia MD [facility] [place] [address] [facility] [address] [place] [address] 08/29/2022 14:46:44 08/29/2022 16:04:20 Pain of bilateral hip joints 6902153761 0545311 M25.551 M25.552 [id number] MD STACEY [facility] [place] [address] [place] [address] 11/28/2022 14:31:26 11/28/2022 16:00:47 Pain of bilateral hip joints 6127444218 2404049 M25.551 M25.734 [id number] Carrillo Garcia MD [facility] [place] [address] [facility] [address] [place] [address] 03/13/2023 15:06:28 03/13/2023 16:05:04 Trochanteric bursitis of right hip 7102221900 27913 M70.61 Trochanter ic bursitis of left hip 6426057267 29036 M70.62 Health Concerns Section Related Observation LastModified by Organization Detai ls LastModified Time None Recorded Concern Status LastModified by Organization Details LastModified Time None Recorded Advance Directives Directive None Recorded Payers Insurance Date Sequence Insurance Name Policy Number Policy [place] Covered Member ID [place] Member ID Guarantor Name 02/28/2023 1 [place] Ashlierigoberto Lees [id number] Ashlie D Nabeel 03/18/2023 2 [place]) 111 Ashlierigoberto Lees [id number] Ashlie D Nabeel 03/10/2023 [employer] - DMEPOS ASSIGNED (MEDICARE DME REGION B) Ashlierigoberto Lees [id number] Ashlie D Nabeel OBGyn Episode No OBEpisode recorded.
--- NOTE | 2025-03-27 02:57 | ECG_ITS ---
Test Date: 2025-03-27 03:04:50 Measurements Intervals [place] Rate: 104 P: 61 [place]: 149 QRS: 18 QRSD: 102 T: 49 QT: 367 QTc: 483 Interpretive Statements SINUS TACHYCARDIA POSSIBLE LEFT ATRIAL ENLARGEMENT MINIMAL Q WAVES- INF/LAT LEADS BASELINE ARTIFACT- I, II, III, AVR, AVL, AVF, V1-V6 BORDERLINE ECG No previous ECG available for comparison Electronically Signed On 03-27-2025 07:02:00 CDT by Aris Ahumada D.O.
[2025-03-27] MEDS: ASPIRIN 81 MG CHEWABLE TABLET 324 MG PO (03:10)
--- NOTE | 2025-03-27 03:14 | ED.CHESTPAIN ---
HPI - Chest Pain General Chief Complaint: Chest Pain Stated Complaint: chest Time Seen by Provider: 03/27/25 02:59 Source: patient and family (sister Isabel) Mode of arrival: ambulatory Limitations: no limitations History of Present Illness HPI narrative: Patient presents with report of chest pain that started at midnight when she got up to use the bathroom. She reports the pain is being in the center of her chest as well as underneath her bilateral breasts. She also reports back pain and that her bilateral arms feel heavy/achy. This is associated with shortness of breath. In March of 2023 she was on vacation and diagnosed with CHF. She is on Jardiance, atenolol, and losartan. She had previously been on furosemide but this was discontinued. That pain like this has never happened before. Her accounting assistant is Dr Ahumada. she reports no nausea or vomiting. No recent fevers, chills, or cough. She is not on anticoagulation. She has had echocardiogram but denies any stress test or cardiac catheterization. Cardiac risk factors HTN: Yes HLD: Yes DM: No Obese: Yes Smoker: No Personal history MO/TIA/CVA: No Fam Hx MO in first degree relative <65yo: No ( Sister had congenital heart issues at ) Related Data Home Medications ?Medication ?Instructions ?Recorded ?Confirmed ?Last Taken ?Type mecobalamin (vitamin B12) 5,000 5,000 mcg PO HS 03/27/23 03/23/25 Unknown History mcg disintegrating tablet Allergies Allergy/AdvReac Type Severity Reaction Status Date / Time yellow fever vaccine live Allergy Severe SWELLING, Verified 03/27/25 03:11 JOINT PAIN latex Allergy Mild Swelling Verified 03/27/25 03:11 tetanus and diphtheria Allergy Unknown Swelling Verified 03/27/25 03:11 toxoids Tetanus Vaccines and Toxoid Allergy Unknown Swelling Verified 03/27/25 03:11 clavulanic acid (From AdvReac Severe vomiting, Verified 03/27/25 03:11 Augmentin) diarrhea clindamycin AdvReac Intermediate Nausea and Verified 03/27/25 03:11 Vomiting amoxicillin AdvReac Unknown Nausea and Verified 03/27/25 03:11 Vomiting PMFSH Past Medical History Medical History Osteopenia Diastolic congestive heart failure (~03/2023) Type 2 diabetes mellitus with chronic kidney disease (~07/2021) Carpal tunnel syndrome, right Stage 3a chronic kidney disease Aortic stenosis Valvular heart disease Exertional dyspnea Chronic lumbar pain Hypertension Anxiety Osteoarthritis, multiple sites Migraines (~1991) Stage 3 chronic kidney disease (~2018) HLD (hyperlipidemia) (~2001) Surgical History Surgical History History of cataract surgery (~2015) bilateral History of carpal tunnel surgery of right wrist (~2015) Entrapment of right ulnar nerve at elbow (~2015) H/O arthroscopic knee surgery (~2002) left and right knee H/O: hysterectomy (~1983) w/ left oophorectomy Family History Family History Mother , @ 92 Family history of elevated blood lipids Hypertension Old age Basically of old age around 96 years old Father , @ 73 Family history of throat cancer Family history of malignant neoplasm of esophagus Respiratory care problem Had a laryngectomy many years prior, in his 70s of respiratory issues Sibling , @ 67 Hepatitis C Rheumatoid arthritis Sibling Congenital heart defect Social History Social History Social History: , lives alone. One daughter, several grandchildren. She enjoys traveling with her sister, usually long car trips across the country. They travel several times a year. 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 Smoking status: Never smoker Second hand tobacco smoke exposure: No Alcohol intake: never Substance use: never Substance use type: does not use Lack of Food: Never True Current Housing: Decline to Answer Concerned About Future Housing: Decline to Answer Difficulty Paying Gas/Electric Bills: Decline to Answer Difficulty Paying for Meds: Decline to Answer Currently Unemployed: Decline to Answer Education: Decline to Answer Difficulty w/ Childcare or Family Care: Decline to Answer Living arrangements: with family Additional living arrangements comments: LIVES WITH SISTER Occupation/Education: retired Additional occupation/education comments: [employer]/[place] Gender identity (if verbalized by the patient): Female Spiritual care concerns: No Exam Narrative: GENERAL: Well-appearing, well-nourished, in mild acute distress. HEAD: Normocephalic, atraumatic. EYES: Non injected, non icteric ENT: Nares clear, no rhinorrhea or epistaxis. Gross auditory acuity intact. NECK: Supple. No meningismus. CHEST: Speaking in full sentences. No respiratory distress. HEART: Regular rate and rhythm. . ABDOMEN: Obese but Soft, nondistended. EXTREMITIES: Normal range of motion. 1 - 2+ bilateral lower extremity edema, grossly symmetric. SKIN: Warm, dry, no rash. NEURO: No focal deficits. Alert and oriented. Answering questions. Following commands. Normal speech without aphasia or dysarthria. PSYCH: Normal mood and affect. Course Vital Signs Vital signs: Vital Signs Pulse Rate 98 03/27/25 03:03 Respiratory Rate 23 H 03/27/25 03:03 Blood Pressure 156/97 H 03/27/25 03:03 Pulse Oximetry 98 03/27/25 03:03 Oxygen Delivery Room Air 03/27/25 03:03 Temperature 98.6 F 03/27/25 03:13 Pulse Rate 92 03/27/25 07:31 Respiratory Rate 20 03/27/25 07:31 Blood Pressure 130/68 03/27/25 07:31 Pulse Oximetry 95 03/27/25 07:31 Oxygen Delivery Room Air 03/27/25 04:22 MDM - Chest Pain MDM Narrative Medical decision making narrative: Patient presents with report acute onset chest pain around midnight when she got up to use the bathroom. It is associated with shortness of breath and is located medially/substernally and radiating underneath bilateral breasts as well as associated with bilateral arm heaviness/achiness and back pain. Per review of the EMR, history of diastolic heart failure, aortic stenosis, and valvular dysfunction. In the emergency department she is afebrile (not initially reported by confirmed by RN) with vital signs notable for hypertension as well as mild tachypnea. HEART SCORE History 2 highly suspicious 1 moderately suspicious 0 slightly suspicious History score [address] depression/elevation not due to LBBB, LVH, or digoxin [address] depression but LBBB, LVH, nonspecific repolarization changes 0 normal ECG score 0 Age 2 >/= 65 1 45-64 0 <45 Age score 2 Risk factors (HTN, hypercholesterolemia, DM, obesity with BMI >30, current smoker or cessation </=3mo), positive fam hx with parent or sibling with CVD before age 65, atherosclerotic disease (prior MO, PCI/CABG, CVA/TIA, or peripheral arterial disease) 2 >/= 3 risk factors or history of atherosclerotic dz 1 - 1-2 risk factors 0 no known risk factors Risk factor score 2 Initial Troponin 2 >3 times normal limit 1 1-3 times normal limit 0 less than or equal to normal limit Troponin score 2 (79 x the upper limit of normal) Total HEART Score 7 CBC with mild abnormalities on the differential but no leukocytosis, anemia, thrombocytopenia. Patient has hyperglycemia with an anion gap and acidosis; no history of diabetes. BNP mildly elevated. Not to a degree to suggest acute heart failure based on the reference range of the assay for patient's age. Based on troponin, repeat EKG immediately performed, especially given the initial artifact on #1. Also obtained posterior though incorrect labeling on the print out as V4 became V7, V5 became V8, and V6 became V9 rather than how it is labeled. Patient had received aspirin initially as part of chest pain protocol. Pain initially reported as 14 out of 10. NTG given. Repeat 8 out of 10. Beta hydroxybutyrate normal. Heparin ordered. Significant NSTEMI; given not a STEMI, initially discussed with the noninterventional accounting assistant who happens to be her accounting assistant, Dr Ahumada. Verifies understanding. Discussed with front end developer designer hospitalist YEISON Rehman. Given this patient is likely going to undergo cardiac catheterization, recommended getting interventionalist looped in sooner rather than later. Discussed with inteventional accounting assistant Dr Bourgeois who concurs with heparin gtt and aspirin already received. Recommends adding Plavix and starting NTG gtt. Updated Maki Rehman regarding the NTG gtt which will make her an ICU admission. Discussed with picked edge sewing machine operator Dr Tomas who verifies understanding. Repeat troponin now 5.35, 157 times the upper limit of normal. Dr Bourgeois was updated including repeat EKG. Continue plan as directed with heparin, nitroglycerin, and observation/continued monitoring. NTG gtt started and she reports worsening CP. Dr Bourgeois updated. Given her chest pain is back to how it was on presentation, he states the clinical laboratory aide can be activated. yardage caller and orange picking supervisor discuss. As per protocol, crash cart to bedside and pads applied. Patient taken to the clinical laboratory aide = Critical Care: 1 or more vital organ systems impaired with a high probability of imminent or life-threatening deterioration in the patient's condition requiring frequent personal assessment and manipulation of the patient's condition. This included time spent evaluating the patient, speaking with EMS pre-hospital personnel and family, reviewing/interpreting laboratory/imaging studies, discussing the case with consultants or admitting teams, retrieving data and reviewing charts, monitoring for decompensation, documenting the visit, and performing bundled procedures exclusive of separately billed procedures. Differential Diagnosis Differential diagnosis: Likely pneumothorax, stable angina, unstable angina pectoris, atypical chest pain, st elevation myocardial infarction, costochondritis, chest pain, biliary colic and other ( acute exacerbation he heart failure, GERD, aortic dissection, PE; spectrum of ACS including nSTEMI) Medical Records Data Attestation: I reviewed the patient's medical records. Medical records narrative: Echo January 2025 Summary 1. Complete two-dimensional, color flow and Doppler transthoracic echocardiogram is performed. 2. Left ventricular chamber dimension is normal. 3. Left ventricular systolic function is normal, estimated at 60-65. 4. There is mild concentric increased left ventricular wall thickness. 5. The left ventricular diastolic function is abnormal. 6. E/e' 21 is elevated. 7. Left atrial chamber dimension is mildly enlarged. 8. The aortic valve is not well visualized. Cannot determine number of aortic valve leaflets. 9. There is moderate aortic valve sclerosis. 10. There is moderate aortic valve stenosis with a peak velocity of 278 cm/s, mean gradient of 19 mmHg, and aortic valve area of 1.1 cm2. 11. There is mild to moderate aortic valve regurgitation. 12. The mitral valve has a moderately calcified annulus. 13. There is mild mitral valve regurgitation. 14. There is mild tricuspid valve regurgitation. 15. Mild pulmonary hypertension, estimated pulmonary arterial systolic pressure is 40 mmHg. 16. There is trace pulmonic regurgitation. Lab Data Attestation: I reviewed the patient's lab results. 03/27/25 03:12 03/27/25 03:12 Labs: Lab Results 03/27/25 03/27/25 03/27/25 Range/Units 03:12 04:41 05:44 WBC 8.4 (4.5-10.0) K/mm3 RBC 4.38 (4.2-5.4) M/mm3 Hgb 12.4 (12.0-15.0) g/dL Hct 38.7 (37.0-47.0) % MCV 88.4 (80-100) fl MCH 28.3 (26-34) pg MCHC 32.0 (32-36) g/dl RDW 13.6 (11.5-14.5) % Plt Count 210 (150-375) k/mm3 MPV 10.0 (7.4-10.4) fl Immature Gran % (Auto) 0.5 (0-0.5) % Neut % (Auto) 54.1 (45.5-73.1) % Lymph % (Auto) 31.8 (18.3-44.2) % Mcculloch % (Auto) 7.9 (2.6-8.5) % Eos % (Auto) 5.0 H (0-4.4) % Baso % (Auto) 0.7 (0.2-1.2) % Lymph # (Auto) 2.67 (0.9-3.2) K/mm3 Mcculloch # (Auto) 0.7 H (0.1-0.6) K/mm3 Eos # (Auto) 0.4 H (0-0.3) K/mm3 Baso # (Auto) 0.1 (0.0-0.1) K/mm3 Abs Immat Gran (auto) 0.04 H (0.00-0.031) K/mm3 Absolute Neuts (auto) 4.5 (1.3-6.7) K/mm3 Absolute Nucleated RBC 0.000 (0.0-0.012) K/mm3 Nucleated RBC % 0.0 (0.0-0.2) % PT 12.9 (11.1-14.7) Seconds INR 1.0 APTT 30.0 (22.3-36.8) Seconds D-Dimer 0.71 H (<0.48) ug/mL Sodium 135 L (137-145) mmol/L Potassium 3.7 (3.4-5.0) mmol/L Chloride 104 (98-107) mmol/L Carbon Dioxide 18 L (22-30) mmol/L Anion Gap 13 H (4-12) mmol/L BUN 23 H (7-17) mg/dL Creatinine 1.20 H (0.7-1.0) mg/dL Estim Creat Clear Calc 36 ml/min Estimated GFR 44 L (59 - ) Glucose 253 H (65-110) mg/dL Calcium 9.4 (8.4-10.2) mg/dL Total Bilirubin 0.4 (0.2-1.3) mg/dL AST 50 H (14-36) U/L ALT 34 (6-35) U/L Alkaline Phosphatase 101 (38-126) U/L Troponin I 2.690 H* 5.350 H* D (0.000-0.034) ng/mL NT-Pro-B Natriuret Pep 299 H (19.9-100) pg/mL Total Protein 7.5 (6.3-8.2) g/dL Albumin 4.4 (3.5-5.1) g/dL Lipase 234 (23-300) U/L Beta-Hydroxybutyrate/Acetoacetate 0.17 (0.02-0.27) mmol/L Influenza A (RT-PCR) Negative (Negative) Influenza B (RT-PCR) Negative (Negative) RSV (RT-PCR) Negative (Negative) SARS-CoV-2 RNA (RT-PCR) Negative (Negative) ABG Data Interpretation: . Imaging Data Attestation: I personally reviewed and interpreted this imaging study as follows: My impression: Cardiomegaly. On AP view it does appear that she has bilateral loss of the costophrenic angle which would be concerning for pleural effusion however this does not appear as prominently on lateral view. CTA on my independent interpretation w/o obvious aortic dissection Radiologist's impression: CTA Chest Stat Rad: No evidence of thoracic aortic dissection or aneurysm. No pulmonary embolism. Hiatal hernia. Coronary artery calcifications. No incidental findings CT abdomen pelvis Stat Rad: No abdominal aortic aneurysm or dissection. There are dense atherosclerotic calcifications at the origin of the superior mesenteric artery causing [id number] stenosis. Scattered atherosclerotic calcifications in the left renal artery and right renal artery origin of the celiac artery without significant stenosis. There is colonic diverticulosis without acute diverticulitis. 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 No calcified gallstones. Distal common bile duct is dilated measuring 9 mm. MRCP may be obtained if clinically warranted. Pancreas is unremarkable. Hepatic steatosis. No incidental findings. IMPRESSION: 1. No acute cardiopulmonary findings IMPRESSION: 1. Aortic atherosclerosis. No aneurysm or dissection. 2. Moderate-sized sliding hiatal hernia. ECG Data EKG #1: Attestation: I personally reviewed and interpreted this ECG as follows: ECG completion date: 03/27/25 ECG completion time: 03:04 Interpretation: Sinus tachycardia at a rate of 104 beats per minute. HI interval 149. QRS 102. QT/QTC 367/483. Good R-wave progression across the precordial leads. Significant baseline artifact limits full interpretation however there do not appear to be marked ST segment elevations nor T-wave inversions. EKG #2: Attestation: I personally reviewed and interpreted this ECG as follows: ECG completion date: 03/27/25 ECG completion time: 04:00 Interpretation: Normal sinus rhythm at a rate of 93 beats per minute. HI interval 156. QRS 111. QT/QTC 384/435. Good R-wave progression across the precordial leads. No T-wave inversions. EKG #3: Attestation: I personally reviewed and interpreted this ECG as follows: ECG completion date: 03/27/25 ECG completion time: 04:02 Interpretation: POSTERIOR EKG (though prepopulated algorithm is incorrect as V4 became V7, V5 became V8 and V6 became V9 rather than how labeled) Normal sinus rhythm at a rate of 97 beats per minute. HI interval 171. QRS 88. QT/QTC 367/422. No ST elevations. EKG #4: Attestation: I personally reviewed and interpreted this ECG as follows: ECG completion date: 03/27/25 ECG completion time: 05:46 Interpretation: Normal sinus rhythm at a rate of 80 beats per minute. HI interval 147. QRS 96. QT/QTC 398/438. Good R-wave progression across the precordial leads. No T-wave inversions. Patient has Q-waves in the inferior leads concerning for infarction. Also Q-waves in lateral precordial leads V5 V6 which are also concerning for infarction. Critical Care Time Critical Care Time Critical Care Time: Yes Total Critical Care Time: 45 Discharge Plan Discharge Clinical Impression: Chest pain, Hyperglycemia, Non-ST elevation MO (NSTEMI) Patient Disposition: Still a Patient Condition: Serious Time of Disposition: 06:32
[2025-03-27 03:21] LABS: Hematocrit 38.7 % (37.0-47.0); Hemoglobin 12.4 g/dL (12.0-15.0); Immature Granulocyte Percent A 0.5 % (0-0.5); Lymphocytes Absolute Auto 2.67 K/mm3 (0.9-3.2); Mean Corpuscular HGB Conc 32.0 g/dl (32-36); Mean Corpuscular Hemoglobin 28.3 pg (26-34); Mean Corpuscular Volume 88.4 fl (80-100); Nucleated Red Blood Cells Absolute Auto 0.000 K/mm3 (0.0-0.012); Nucleated Red Blood Cells Perc 0.0 % (0.0-0.2); Platelet Count Result 210 k/mm3 (150-375); Red Blood Count 4.38 M/mm3 (4.2-5.4); White Blood Count 8.4 K/mm3 (4.5-10.0)
[2025-03-27 03:32] LABS: INR 1.0; Prothrombin Time 12.9 Seconds (11.1-14.7)
[2025-03-27 03:33] LABS: Partial Thromboplastin Time 30.0 Seconds (22.3-36.8)
[2025-03-27 03:35] LABS: Alanine Aminotransferase 34 U/L (6-35); Albumin Level 4.4 g/dL (3.5-5.1); Alkaline Phosphatase 101 U/L (38-126); Anion Gap 13 mmol/L (4-12); Aspartate Amino Transferase 50 U/L (14-36); Bilirubin,Total 0.4 mg/dL (0.2-1.3); Blood Urea Nitrogen 23 mg/dL (7-17); Calcium 9.4 mg/dL (8.4-10.2); Carbon Dioxide 18 mmol/L (22-30); Chloride 104 mmol/L (98-107); Estimated CRCL calculation 36 ml/min; Estimated Glomerular Filt Rate 44; Glucose 253 mg/dL (65-110); Lipase 234 U/L (23-300); Potassium 3.7 mmol/L (3.4-5.0); Sodium 135 mmol/L (137-145); Total Protein 7.5 g/dL (6.3-8.2)
[2025-03-27 03:47] LABS: Troponin I 2.690 ng/mL (0.000-0.034)
--- NOTE | 2025-03-27 03:48 | ECG_ITS ---
Test Date: 2025-03-27 04:02:10 Measurements Intervals [place] Rate: 97 P: 54 ND: 171 QRS: 53 QRSD: 88 T: 53 QT: 367 QTc: 467 Interpretive Statements ALTERNATE LEAD PLACEMENT: Posterior V1: V7, V2: V8, V3: V9, V4: V4, V5: V5, V6: V6 SINUS RHYTHM CONSIDER INFEROLATERAL INFARCT, AGE INDETERMINATE BASELINE ARTIFACT- III, AVR, AVL, V5 ABNORMAL ECG Compared to ECG 03/27/2025 03:04:50 HEART RATE HAS DECREASED INFEROLATERAL INFARCT NOW PRESENT Electronically Signed On 03-27-2025 07:06:22 CDT by Aris Ahumada D.O.
[2025-03-27 03:59] LABS: NT Pro B Type Natriuretic Pept 299 pg/mL (19.9-100)
[2025-03-27] MEDS: NITROGLYCERIN SL 0.4 MG TABLET SUBLINGUAL ×3 (04:07→04:19)
--- NOTE | 2025-03-27 04:20 | ECG_ITS ---
Test Date: 2025-03-27 05:46:01 Measurements Intervals [place] Rate: 80 P: 75 GA: 147 QRS: 12 QRSD: 96 T: 68 QT: 398 QTc: 460 Interpretive Statements SINUS RHYTHM POSSIBLE LEFT ATRIAL ENLARGEMENT LATERAL INFARCT, AGE INDETERMINATE INFERIOR INFARCT, AGE INDETERMINATE BASELINE ARTIFACT- I, II, III, AVR, AVL, AVF, V1-V6 ABNORMAL ECG Compared to ECG 03/27/2025 04:02:10 No significant changes Electronically Signed On 03-27-2025 07:10:27 CDT by Aris Ahumada D.O.
[2025-03-27] MEDS: MORPHINE SULFATE (*CRX) 4 MG/ML INJ 2 MG IV PUSH (04:25)
[2025-03-27 04:55] LABS: Beta-Hydroxybutyrate/Acetoace. 0.17 mmol/L (0.02-0.27)
[2025-03-27 05:25] LABS: Influenza A QL RT-PCR Negative (Negative); Influenza B QL RT-PCR Negative (Negative); RSV RNA, RT-PCR Negative (Negative); SARS-CoV-2 RNA PCR Negative (Negative)
[2025-03-27] MEDS: HEPARIN SOD/D5W 100 UNITS/ML 25,000 UNITS/250 ML BAG 8 UNITS IV CONT ×2 (05:57→18:47)
[2025-03-27] MEDS: CLOPIDOGREL BISULFATE 75 MG TABLET PO (05:59)
[2025-03-27 06:26] LABS: Troponin I 5.350 ng/mL (0.000-0.034)
[2025-03-27] MEDS: DEXTROSE 5% IV CONT (06:34)
[2025-03-27] MEDS: [UNRECOGNIZED DRUG - OTHER] IV CONT (06:34)
[2025-03-27] MEDS: NITROGLYCERIN IV CONT (06:34)
--- NOTE | 2025-03-27 06:40 | PC.NURSE ---
0637 report received from NALLELY Manriquez
--- NOTE | 2025-03-27 07:50 | PM.CNCAR ---
Assessment and Plan Assessment and plan (1) NSTEMI (non-ST elevated myocardial infarction): Code(s): I21.4 - Non-ST elevation (NSTEMI) myocardial infarction Status: Acute Plan NSTEMI with persistent chest pain and rising troponin moderate aortic stenosis Hypertension Obesity Mixed dyslipidemia Plan Heparin Aspirin Statin Beta-rory Transthoracic echocardiogram Emergency left heart catheterization (normal coronary angiogram, Normal LV function and Moderate 25 mmHG) History of Present Illness History of Present Illness Consult date/time: 03/27/25 07:50 Reason For Visit: NSTEMI Narrative: 74-year-old female patient presents to the hospital with acute episode of chest pain started at midnight. Chest pain was midsternal severe aching and pressure-like radiating to left shoulder left arm. There was no nausea, sweating or vomiting. There was no precipitating or relieving factors. On presentation to the ED patient received nitroglycerin with partial improvement in the pain but was persistent afterward. Review of Systems Review of Systems: All systems reviewed & are unremarkable except as noted in HPI and below PMFSH Past Medical History Medical History Osteopenia Diastolic congestive heart failure (~03/2023) Type 2 diabetes mellitus with chronic kidney disease (~07/2021) Carpal tunnel syndrome, right Stage 3a chronic kidney disease Aortic stenosis Valvular heart disease Exertional dyspnea Chronic lumbar pain Hypertension Anxiety Osteoarthritis, multiple sites Migraines (~1991) Stage 3 chronic kidney disease (~2018) HLD (hyperlipidemia) (~2001) Surgical History Surgical History History of cataract surgery (~2015) bilateral History of carpal tunnel surgery of right wrist (~2015) Entrapment of right ulnar nerve at elbow (~2015) H/O arthroscopic knee surgery (~2002) left and right knee H/O: hysterectomy (~1983) w/ left oophorectomy Family History Family History Mother , @ 92 Family history of elevated blood lipids Hypertension Old age Basically of old age around 96 years old Father , @ 73 Family history of throat cancer Family history of malignant neoplasm of esophagus Respiratory care problem Had a laryngectomy many years prior, in his 70s of respiratory issues Sibling , @ 67 Hepatitis C Rheumatoid arthritis Sibling Congenital heart defect Social History Social History Social History: , lives alone. One daughter, several grandchildren. She enjoys traveling with her sister, usually long car trips across the country. They travel several times a year. 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 [employer] Smoking status: Never smoker Second hand tobacco smoke exposure: No Alcohol intake: never Substance use: never Substance use type: does not use Lack of Food: Never True Current Housing: Decline to Answer Concerned About Future Housing: Decline to Answer Difficulty Paying Gas/Electric Bills: Decline to Answer Difficulty Paying for Meds: Decline to Answer Currently Unemployed: Decline to Answer Education: Decline to Answer Difficulty w/ Childcare or Family Care: Decline to Answer Living arrangements: with family Additional living arrangements comments: LIVES WITH SISTER Occupation/Education: retired Additional occupation/education comments: [employer] Gender identity (if verbalized by the patient): Female Spiritual care concerns: No Meds Home Medications and Allergies Home Medications ?Medication ?Instructions ?Recorded ?Confirmed ?Type mecobalamin (vitamin B12) 5,000 5,000 mcg PO HS 03/27/23 03/23/25 History mcg disintegrating tablet benzonatate 100 mg capsule 100 mg PO TID PRN cough #30 caps 05/11/24 03/23/25 Rx tramadol 50 mg tablet 50 mg PO DAILY PRN pain #30 tabs 07/14/24 03/23/25 Rx citalopram 40 mg tablet 40 mg PO QHS #90 tabs 01/07/25 03/23/25 Rx omeprazole 40 mg capsule,delayed 40 mg PO QHS #90 caps 01/07/25 03/23/25 Rx release rosuvastatin 40 mg tablet 40 mg PO QHS #90 tabs 01/07/25 03/23/25 Rx trazodone 150 mg tablet 150 mg PO QHS PRN insomnia #90 tabs 01/07/25 03/23/25 Rx calcium carbonate (Calcium 600) 600 mg PO BID #180 tabs 02/10/25 03/23/25 Rx cholecalciferol (vitamin D3) 50 50 mcg PO DAILY #90 caps 02/10/25 03/23/25 Rx mcg (2,000 unit) capsule atenolol 50 mg tablet 50 mg PO DAILY #90 tabs 03/08/25 03/23/25 Rx denosumab 60 mg/mL subcutaneous 60 mg subcut [id number] #1 mL 03/08/25 03/23/25 Rx syringe (Prolia) losartan 25 mg tablet 25 mg PO DAILY #90 tabs 03/08/25 03/23/25 Rx sumatriptan succinate 25 mg tablet See Rx Instructions PO .COMPLEX 03/08/25 03/23/25 Rx #10 tabs empagliflozin 10 mg tablet 10 mg PO DAILY #90 tabs 03/10/25 03/23/25 Rx (Jardiance) Allergies Allergy/AdvReac Type Severity Reaction Status Date / Time yellow fever vaccine live Allergy Severe SWELLING, Verified 03/27/25 03:11 JOINT PAIN latex Allergy Mild Swelling Verified 03/27/25 03:11 tetanus and diphtheria Allergy Unknown Swelling Verified 03/27/25 03:11 toxoids Tetanus Vaccines and Toxoid Allergy Unknown Swelling Verified 03/27/25 03:11 clavulanic acid (From AdvReac Severe vomiting, Verified 03/27/25 03:11 Augmentin) diarrhea clindamycin AdvReac Intermediate Nausea and Verified 03/27/25 03:11 Vomiting amoxicillin AdvReac Unknown Nausea and Verified 03/27/25 03:11 Vomiting Vital Signs Vital Signs - 24 hr 03/27/25 03:03 03/27/25 03:13 03/27/25 03:15 Temperature 37.0 C Pulse Rate 98 99 90 Respiratory Rate 23 H 23 H 24 H Blood Pressure 156/97 H Pulse Oximetry 98 96 95 Oxygen Delivery Room Air 03/27/25 03:35 03/27/25 03:44 03/27/25 04:03 Temperature Pulse Rate 97 95 Respiratory Rate 24 H 17 Blood Pressure 156/52 H Pulse Oximetry 98 95 Oxygen Delivery 03/27/25 04:10 03/27/25 04:10 03/27/25 04:15 Temperature Pulse Rate 98 100 95 Respiratory Rate 23 H 22 H 20 Blood Pressure 157/75 H 157/75 H Pulse Oximetry 94 93 93 Oxygen Delivery 03/27/25 04:17 03/27/25 04:22 03/27/25 04:30 Temperature Pulse Rate 100 93 Respiratory Rate 19 13 Blood Pressure 151/75 H Pulse Oximetry 93 94 Oxygen Delivery Room Air 03/27/25 04:32 03/27/25 04:33 03/27/25 04:45 Temperature Pulse Rate 99 99 92 Respiratory Rate 15 17 19 Blood Pressure 147/74 H Pulse Oximetry 95 95 97 Oxygen Delivery 03/27/25 04:47 03/27/25 05:00 03/27/25 05:02 Temperature Pulse Rate 92 88 83 Respiratory Rate 18 17 18 Blood Pressure 159/70 H 142/66 H Pulse Oximetry 95 96 96 Oxygen Delivery 03/27/25 05:15 03/27/25 05:30 03/27/25 05:32 Temperature Pulse Rate 84 83 85 Respiratory Rate 21 H 17 24 H Blood Pressure 161/62 H Pulse Oximetry 95 94 95 Oxygen Delivery 03/27/25 05:45 03/27/25 06:00 03/27/25 06:02 Temperature Pulse Rate 88 91 96 Respiratory Rate 18 22 H 19 Blood Pressure 159/58 H Pulse Oximetry 97 95 98 Oxygen Delivery 03/27/25 06:34 03/27/25 06:46 03/27/25 06:57 Temperature Pulse Rate 88 86 88 Respiratory Rate Blood Pressure 166/55 H 156/66 H Pulse Oximetry Oxygen Delivery 03/27/25 07:03 03/27/25 07:31 Temperature Pulse Rate 96 92 Respiratory Rate 20 Blood Pressure 157/60 H 130/68 Pulse Oximetry 95 Oxygen Delivery Exam Const: General: comfortable and no acute distress Other: Able to lie flat HENMT: Face/Nose/Sinus: Normal nares present and no epistaxis Mouth: Yes moist mucous membranes Eyes: Sclera: sclerae normal Pupils: Equal, round and reactive pupils present Neck: Neck: supple and no JVD Carotids: no bruits Resp: Auscultation: clear to auscultation bilaterally and lung sounds not diminished Other: No chest wall tenderness Cardio: Rate: regular rate Rhythm: regular rhythm Heart sounds: no gallops, Murmur heart sound present (ESM) and no rubs GI: GI Palp: Yes Soft to palpation and No Tenderness to palpation present (GI) Auscultation: normal bowel sounds Skin: General skin exam: normal color, rashes and/or lesions noted and no erythema Other: Warm Neuro: Cranial nerves: Yes Equal, round and reactive pupils present Speech: normal speech Other: No obvious focal deficit or facial asymmetry Extrem: General: no edema Other: Normal capillary refills Intact distal pulses. Results Labs and Meds 03/27/25 03:12 03/27/25 03:12 Lab results: Cardiac Enzymes 03/27/25 03/27/25 Range/Units 03:12 05:44 AST 50 H (14-36) U/L Troponin I 2.690 H* 5.350 H* D (0.000-0.034) ng/mL Coagulation 03/27/25 Range/Units 03:12 PT 12.9 (11.1-14.7) Seconds APTT 30.0 (22.3-36.8) Seconds CBC 03/27/25 Range/Units 03:12 WBC 8.4 (4.5-10.0) K/mm3 RBC 4.38 (4.2-5.4) M/mm3 Hgb 12.4 (12.0-15.0) g/dL Hct 38.7 (37.0-47.0) % Plt Count 210 (150-375) k/mm3 Lymph # (Auto) 2.67 (0.9-3.2) K/mm3 Towns # (Auto) 0.7 H (0.1-0.6) K/mm3 Eos # (Auto) 0.4 H (0-0.3) K/mm3 Baso # (Auto) 0.1 (0.0-0.1) K/mm3 Comprehensive Metabolic Panel 03/27/25 Range/Units 03:12 Sodium 135 L (137-145) mmol/L Potassium 3.7 (3.4-5.0) mmol/L Chloride 104 (98-107) mmol/L Carbon Dioxide 18 L (22-30) mmol/L BUN 23 H (7-17) mg/dL Creatinine 1.20 H (0.7-1.0) mg/dL Glucose 253 H (65-110) mg/dL Calcium 9.4 (8.4-10.2) mg/dL AST 50 H (14-36) U/L ALT 34 (6-35) U/L Alkaline Phosphatase 101 (38-126) U/L Total Protein 7.5 (6.3-8.2) g/dL Albumin 4.4 (3.5-5.1) g/dL Intake and Output 03/26/25 03/26/25 03/27/25 15:59 23:59 07:59 Intake Total 1.9 Balance 1.9 Intake: IV 1.9 Nitroglycerin IV Soln (*Bkc) 50 1.9 mg In Dextrose 5 % in Water Bd Ff 240 ml @ 5 MCG/MIN 1.5 mls/ hr IV CONT .Q24H COUNTS INCLUDE 234 BEDS AT THE [facility] Rx#: [id number] Patient Weight 03/27/25 23:59 Weight 88.8 kg
--- NOTE | 2025-03-27 07:52 | P.PCNCC_ITS ---
Cardiac Cath Procedure Note Date of procedure:: 03/27/25 Performing physician:: Mark Bourgeois MD Indication:: nstemi Procedure Procedure performed:: Left heart catheterization & Coronary angiogram Sedation/Medication given:: Moderate sedation with Versed and fentanyl. The sedation was performed under my supervision and presents of our end. Patient was monitored during sedation involving hemodynamics oxygen saturation. Patient was stable and tolerated sedation well and at the end of the procedure patient was fully awake. Access site:: Right common femoral artery Estimated blood loss:: < 50 ml Procedure note:: The patient was prepped and draped in a sterile fashion Consent was obtained Right femoral access obtained using modified Seldinger technique with ultrasound guidance and 6 [place] sheath was inserted Diagnostic coronary angiogram was done using JL4 for left JR4 for right Aortic valve was crossed using a JR4 & bigtal Findings:: Left main normal Lad normal vessel with no obstructive disease. Left circumflex gives rise to OM branches with no obstructive disease RCA dominant vessel no obstructive disease Aortic valve peak to peak gradient 25 mm Hg LV-gram ejection fraction 65% with no wall motion abnormalities Conclusion:: No obstructive coronary artery disease Hypertensive emergency Assessment and Plan Assessment and plan (1) NSTEMI (non-ST elevated myocardial infarction): Code(s): I21.4 - Non-ST elevation (NSTEMI) myocardial infarction Status: Acute Plan Transthoracic echocardiogram Nitroglycerin drip
[2025-03-27 07:54] LABS: MRSA (PCR) NOT DETECTED (NOT DETECTE)
--- NOTE | 2025-03-27 08:25 | WPDCNINT ---
Assessment and Plan Assessment and plan (1) Chest pain: Code(s): R07.9 - Chest pain, unspecified Status: Acute Assessment and Plan: Patient presented with chest pain which from history appears noncardiac in nature but had abnormal and elevated troponin. She does have risk factors of coronary disease hence patient was diagnosed with NSTEMI Cardiac catheterization showed no significant coronary disease or blockages. CTA chest abdomen pelvis IMPRESSION: 1. Aortic atherosclerosis. No aneurysm or dissection. 2. Moderate-sized sliding hiatal hernia. She did had elevated blood pressure. Exam and history appears to be musculoskeletal or pleuritic pain EKG not suggestive of pericarditis Echocardiogram pending Will start ibuprofen Wean off nitroglycerin for blood pressure Continue Protonix for GERD Continue aspirin statin (2) Hypertension: Qualifiers: Hypertension type: primary hypertension Qualified Code(s): I10 - Essential (primary) hypertension Code(s): I10 - Essential (primary) hypertension Status: Acute Assessment and Plan: Continue beta-rory and losartan Wean off nitroglycerin infusion P.r.n. labetalol and hydralazine (3) NSTEMI (non-ST elevated myocardial infarction): Code(s): I21.4 - Non-ST elevation (NSTEMI) myocardial infarction Status: Acute Assessment and Plan: See above (4) HLD (hyperlipidemia): Onset Date: ~2001 Qualifiers: Hyperlipidemia type: unspecified Qualified Code(s): E78.5 - Hyperlipidemia, unspecified Code(s): E78.5 - Hyperlipidemia, unspecified Status: Chronic Assessment and Plan: Continue rosuvastatin (5) Diastolic congestive heart failure: Onset Date: ~03/2023 Qualifiers: Heart failure chronicity: chronic Qualified Code(s): I50.32 - Chronic diastolic (congestive) heart failure Code(s): I50.30 - Unspecified diastolic (congestive) heart failure Status: Acute Assessment and Plan: Continue beta-rory ARB Jardiance (6) Diabetes mellitus with chronic kidney disease: Code(s): E11.22 - Type 2 diabetes mellitus with diabetic chronic kidney disease Status: Acute Assessment and Plan: Sliding scale insulin check HbA1c Continue Giardia (7) Stage 3 chronic kidney disease: Onset Date: ~2018 Qualifiers: Chronic kidney disease stage 3 subtype: stage 3a (GFR 45-59) Qualified Code(s): N18.31 - Chronic kidney disease, stage 3a Code(s): N18.3 - Chronic kidney disease, stage 3 (moderate) Status: Inactive Assessment and Plan: Creatinine appears to be baseline Monitor urine output electrolytes creat Cautious IV fluids for renal protection (8) GERD (gastroesophageal reflux disease): Qualifiers: Esophagitis presence: without esophagitis Qualified Code(s): K21.9 - Gastro-esophageal reflux disease without esophagitis Code(s): K21.9 - Gastro-esophageal reflux disease without esophagitis Status: Acute Assessment and Plan: Continue protonic Plan DVT prophylaxis -Lovenox Stress ulcer prophylaxis -PPI Nutrition -diet ordered Code Status -patient does not want CPR and is DNR. Total Critical Care Time - 30minutes Due to a high probability of clinically significant, life threatening deterioration, the patient required my highest level of preparedness to intervene emergently and I personally spent this critical care time directly and personally managing the patient. This critical care time included obtaining a history; examining the patient; pulse oximetry; ordering and review of studies; arranging urgent treatment with development of a management plan; evaluation of patient's response to treatment; frequent reassessment; and discussions with other providers. It was exclusive of separately billable procedures and treating other patients and teaching time. 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 She states pain started around midnight when she went to bathroom. She has not had this pain of pain before. She denied any nausea vomiting palpitations shortness of breath dizziness lightheadedness. Pain was 12/10. She was unable to tell me the quality of the pain. Pain was worse with deep breathing. Patient denies fever, shortness of breath, cough, nausea vomiting, abdominal pain,, diarrhea, headache or constipation. All other systems were reviewed and were negative. She claims compliance with the medications. Workup in the ER showed CTA chest abdomen pelvis to be negative for PE or dissection Lab work showed normal WBC 8.4, creatinine 1.2 anion gap 13 blood glucose 253 Troponin elevated at 2.69 and 5.35 BNP 2 9 9 Normal beta hydroxybutyrate Patient was started on nitroglycerin infusion along with heparin drip. Cardiology consulted and patient was taken to cardiac catheterization lab. Patient underwent cardiac catheterization which showed no significant coronary artery disease which could be intervened upon. She had moderate aortic stenosis with high aortic blood pressure but normal LV g. Patient is now being admitted to ICU for further evaluation management. Patient at this time states he feels better. She still has pain 6/10 and again worse with deep breathing and on pushing on her sternum in the middle of the chest. Review of Systems Review of Systems: All systems reviewed & are unremarkable except as noted in HPI and below PMFSH Past Medical History Medical History Osteopenia Diastolic congestive heart failure (~03/2023) Type 2 diabetes mellitus with chronic kidney disease (~07/2021) Carpal tunnel syndrome, right Stage 3a chronic kidney disease Aortic stenosis Valvular heart disease Exertional dyspnea Chronic lumbar pain Hypertension Anxiety Osteoarthritis, multiple sites Migraines (~1991) Stage 3 chronic kidney disease (~2018) HLD (hyperlipidemia) (~2001) Surgical History Surgical History History of cataract surgery (~2015) bilateral History of carpal tunnel surgery of right wrist (~2015) Entrapment of right ulnar nerve at elbow (~2015) H/O arthroscopic knee surgery (~2002) left and right knee H/O: hysterectomy (~1983) w/ left oophorectomy Family History Family History Mother , @ 92 Family history of elevated blood lipids Hypertension Old age Basically of old age around 96 years old Father , @ 73 Family history of throat cancer Family history of malignant neoplasm of esophagus Respiratory care problem Had a laryngectomy many years prior, in his 70s of respiratory issues Sibling , @ 67 Hepatitis C Rheumatoid arthritis Sibling Congenital heart defect Social History Social History Social History: , lives alone. One daughter, several grandchildren. She enjoys traveling with her sister, usually long car trips across the country. They travel several times a year. 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 Smoking status: Never smoker Second hand tobacco smoke exposure: No Alcohol intake: never Substance use: never Substance use type: does not use Lack of Transportation: No Lack of Food: Never True Current Housing: I Have Housing Concerned About Future Housing: No Difficulty Paying Gas/Electric Bills: No Difficulty Paying for Meds: No Currently Unemployed: No Education: High School Diploma/GED Difficulty w/ Childcare or Family Care: No Living arrangements: with family Additional living arrangements comments: LIVES WITH SISTER Occupation/Education: retired Additional occupation/education comments: [employer]/[place] Gender identity (if verbalized by the patient): Female Spiritual care concerns: No Meds Home Medications and Allergies Home Medications ?Medication ?Instructions ?Recorded ?Confirmed ?Type mecobalamin (vitamin B12) 5,000 5,000 mcg PO HS 03/27/23 03/23/25 History mcg disintegrating tablet benzonatate 100 mg capsule 100 mg PO TID PRN cough #30 caps 05/11/24 03/23/25 Rx tramadol 50 mg tablet 50 mg PO DAILY PRN pain #30 tabs 07/14/24 03/23/25 Rx citalopram 40 mg tablet 40 mg PO QHS #90 tabs 01/07/25 03/23/25 Rx omeprazole 40 mg capsule,delayed 40 mg PO QHS #90 caps 01/07/25 03/23/25 Rx release rosuvastatin 40 mg tablet 40 mg PO QHS #90 tabs 01/07/25 03/23/25 Rx trazodone 150 mg tablet 150 mg PO QHS PRN insomnia #90 tabs 01/07/25 03/23/25 Rx calcium carbonate (Calcium 600) 600 mg PO BID #180 tabs 02/10/25 03/23/25 Rx cholecalciferol (vitamin D3) 50 50 mcg PO DAILY #90 caps 02/10/25 03/23/25 Rx mcg (2,000 unit) capsule atenolol 50 mg tablet 50 mg PO DAILY #90 tabs 03/08/25 03/23/25 Rx denosumab 60 mg/mL subcutaneous 60 mg subcut [id number] #1 mL 03/08/25 03/23/25 Rx syringe (Prolia) losartan 25 mg tablet 25 mg PO DAILY #90 tabs 03/08/25 03/23/25 Rx sumatriptan succinate 25 mg tablet See Rx Instructions PO .COMPLEX 03/08/25 03/23/25 Rx #10 tabs empagliflozin 10 mg tablet 10 mg PO DAILY #90 tabs 03/10/25 03/23/25 Rx (Jardiance) Allergies Allergy/AdvReac Type Severity Reaction Status Date / Time yellow fever vaccine live Allergy Severe SWELLING, Verified 03/27/25 10:05 JOINT PAIN latex Allergy Mild Swelling Verified 03/27/25 10:05 tetanus and diphtheria Allergy Unknown Swelling Verified 03/27/25 10:05 toxoids Tetanus Vaccines and Toxoid Allergy Unknown Swelling Verified 03/27/25 10:05 clavulanic acid (From AdvReac Severe vomiting, Verified 03/27/25 10:05 Augmentin) diarrhea clindamycin AdvReac Intermediate Nausea and Verified 03/27/25 10:05 Vomiting amoxicillin AdvReac Unknown Nausea and Verified 03/27/25 10:05 Vomiting Vital Signs Vital Signs - 24 hr 03/27/25 03:03 03/27/25 03:13 03/27/25 03:15 Temperature 37.0 C Pulse Rate 98 99 90 Respiratory Rate 23 H 23 H 24 H Blood Pressure 156/97 H Pulse Oximetry 98 96 95 Oxygen Delivery Room Air 03/27/25 03:35 03/27/25 03:44 03/27/25 04:03 Temperature Pulse Rate 97 95 Respiratory Rate 24 H 17 Blood Pressure 156/52 H Pulse Oximetry 98 95 Oxygen Delivery 03/27/25 04:10 03/27/25 04:10 03/27/25 04:15 Temperature Pulse Rate 98 100 95 Respiratory Rate 23 H 22 H 20 Blood Pressure 157/75 H 157/75 H Pulse Oximetry 94 93 93 Oxygen Delivery 03/27/25 04:17 03/27/25 04:22 03/27/25 04:30 Temperature Pulse Rate 100 93 Respiratory Rate 19 13 Blood Pressure 151/75 H Pulse Oximetry 93 94 Oxygen Delivery Room Air 03/27/25 04:32 03/27/25 04:33 03/27/25 04:45 Temperature Pulse Rate 99 99 92 Respiratory Rate 15 17 19 Blood Pressure 147/74 H Pulse Oximetry 95 95 97 Oxygen Delivery 03/27/25 04:47 03/27/25 05:00 03/27/25 05:02 Temperature Pulse Rate 92 88 83 Respiratory Rate 18 17 18 Blood Pressure 159/70 H 142/66 H Pulse Oximetry 95 96 96 Oxygen Delivery 03/27/25 05:15 03/27/25 05:30 03/27/25 05:32 Temperature Pulse Rate 84 83 85 Respiratory Rate 21 H 17 24 H Blood Pressure 161/62 H Pulse Oximetry 95 94 95 Oxygen Delivery 03/27/25 05:45 03/27/25 06:00 03/27/25 06:02 Temperature Pulse Rate 88 91 96 Respiratory Rate 18 22 H 19 Blood Pressure 159/58 H Pulse Oximetry 97 95 98 Oxygen Delivery 03/27/25 06:34 03/27/25 06:46 03/27/25 06:57 Temperature Pulse Rate 88 86 88 Respiratory Rate Blood Pressure 166/55 H 156/66 H Pulse Oximetry Oxygen Delivery 03/27/25 07:03 03/27/25 07:31 Temperature Pulse Rate 96 92 Respiratory Rate 20 Blood Pressure 157/60 H 130/68 Pulse Oximetry 95 Oxygen Delivery Exam Narrative: General: Pt is alert awake and in NAD Lungs/Chest: Trachea central Clear BS B/L, No crackles or wheezing. Patient has tenderness to palpation on sternum Cardiac: RRR. Normal S1 S2. No murmurs Circulation: Pedal pulses are intact and symmetrical. Abdomen: Normal bowel sounds.. Soft. NT. ND. Extremities: No clubbing, cyanosis or edema. Warm right groin shows no swelling or hematoma : Meehan in place Neurologic: Follows commands. Moves all 4 extremities PERRL Skin: No Rash Results Labs 03/27/25 03:12 03/27/25 03:12 Labs: Impressions Chest X-Ray 03/27/25 06:19 IMPRESSION: 1. No acute cardiopulmonary findings. Chest/Abdomen/Pelvis CTA 03/27/25 07:27 IMPRESSION: 1. Aortic atherosclerosis. No aneurysm or dissection. 2. Moderate-sized sliding hiatal hernia. Short CBC 03/27/25 Range/Units 03:12 WBC 8.4 (4.5-10.0) K/mm3 Hgb 12.4 (12.0-15.0) g/dL Hct 38.7 (37.0-47.0) % Plt Count 210 (150-375) k/mm3 BMP 03/27/25 03:12 Sodium 135 L Potassium 3.7 Chloride 104 Carbon Dioxide 18 L BUN 23 H Creatinine 1.20 H Glucose 253 H Calcium 9.4 Cardiac Enzymes 03/27/25 03/27/25 Range/Units 03:12 05:44 Troponin I 2.690 H* 5.350 H* D (0.000-0.034) ng/mL Liver Function 03/27/25 Range/Units 03:12 Total Bilirubin 0.4 (0.2-1.3) mg/dL AST 50 H (14-36) U/L ALT 34 (6-35) U/L Alkaline Phosphatase 101 (38-126) U/L Albumin 4.4 (3.5-5.1) g/dL Quality VTE Prophylaxis VTE prophylaxis: pharmacologic ordered Hospitalist MIPS Advance Care Plan I have confirmed that the patient's Advanced Care Plan is present, code status is documented, or surrogate decision maker is listed in patient medical record.: Yes Medication Reconciliation I have utilized all available resources to obtain, update and review the patients current medications (includes all prescriptions, OTC, herbals, cannabis, and nutritional supplements).: Yes
[2025-03-27 08:52] LABS: Hemoglobin A1C 6.7 % (<5.7)
--- NOTE | 2025-03-27 09:01 | ADMGEN ---
This patient, Ashlie Lees, was admitted to Intensive Care Unit-3. Patient/family oriented to hospital policies and general routines including ID bracelet, bed and alarms, visiting hours, pain management, procedures, bathroom and other care routines, personal items, smoking policy, room service/diet, and visiting hours. Information on how to activate the Rapid Response Team has been discussed. Patient/Family are encouraged to report perceived risks to care and to ask questions if they do not understand what they are told or what they should do.
--- NOTE | 2025-03-27 09:27 | PC.NURSE ---
Patient arrived to ICU room 3 at 0902, Nitroglycerin gtt.running at 50 mcg/min(concurrent with bedside verbal report per medical lab technician), titrated to 55 mcg/min based on a reported pain score of 6/10. RN to continue to monitor. Patient does report pain has improved from earlier.
[2025-03-27] MEDS: PERFLUTREN LIPID MICROSPHERES 1.5 ML VIAL DILUTED TO 10 ML TOTAL VOLUME IV PUSH (10:35)
--- NOTE | 2025-03-27 10:36 | IVDEFINITY ---
Prior to administration of IV Definity the patient was educated on the risks and benefits of the imaging enhancing agent including potential adverse side effects. The patient verbalized understanding. Allergies were verified. No exclusion criteria were identified and at least one of the following inclusion criteria were met: 1) physician request, 2) patient technically difficult to image (per the [place] [employer] guidelines of two or more segments not discernable within the apical view), or 3) questionable left ventricular function. ?
--- NOTE | 2025-03-27 10:47 | PM.CNCAR ---
Assessment and Plan Assessment and plan (1) Non-ST elevation HI (NSTEMI): Code(s): I21.4 - Non-ST elevation (NSTEMI) myocardial infarction Status: Acute Assessment and Plan: This is [place]. Troponin went from 2 to 5. EKG shows some developing Q waves inferolateral leads. No ST segment deviations. C with Dr. Bourgeois shows no obstructive coronaries. Continue NTG drip for ongoing chest pain. Continue aspirin, Rosuvastatin, Atenolol, Losartan. Check troponin at 2 pm and if trending up, resume heparin drip until it peaks. Obtain echo. (2) Chest pain: Code(s): R07.9 - Chest pain, unspecified Status: Acute (3) Mixed hyperlipidemia: Code(s): E78.2 - Mixed hyperlipidemia Status: Acute Assessment and Plan: On Rosuvastatin. (4) Benign essential hypertension: Code(s): I10 - Essential (primary) hypertension Status: Acute Assessment and Plan: Resume home medication of Atenolol and Losartan, and she is on Jardiance. (5) Aortic stenosis: Code(s): I35.0 - Nonrheumatic aortic (valve) stenosis Status: Acute Assessment and Plan: Moderate. History of Present Illness History of Present Illness Consult date/time: 03/27/25 10:47 Reason For Visit: NSTEMI Narrative: 74 yr old woman who is my regular cardiology patient and a patient of Dr. Antonio presents to ER with chest pain. She has a history of , DM, hypertension, dyslipidemia, anxiety. States that at midnight she was going to restroom when she had sudden mid substernal chest pain radiating to her back and both arms. Her sister drove her in to ER. Her troponin was elevated and with severe chest pain 10/10 she was taken to labor specialist by Dr. Bourgeois emergently and found to have no obstructive CAD. She has chest pain 6/10 on NTG drip. Normally, she can walk from parking lot then may have HURT. Denies sob, orthopnea, PND, dizziness, palpitations. Cardiovascular Procedures Echo/MUGA:: 02/11/25 Echo: EF 60-65%, mild LVH, diastolic dysfunction (E/e' 21), mild LAE, mod (ANMOL 1.1 cm2), mild-mod AI, mod MAC, mild MR/TR, RVSP 40 mmHg, trace PI. 04/17/23 Echo: EF 65%, grade I diastolic dysfunction, mod LAE, mild (ANMOL 1.4 cm2), mild AI/MR, mild-mod TR. Electrophysiology:: 12/23/24 EKG: Sinus bradycardia a t57 bpm, LVH. Stress Tests:: 04/18/23 Lexiscan myoview: Negative. Review of Systems Review of Systems: All systems reviewed & are unremarkable except as noted in HPI and below Constitutional: Constitutional: Reports as per HPI, Denies chills and Denies fever(s) Cardiovascular: Cardiovascular: Reports as per HPI, Reports chest pain and Denies irregular heart rhythm Respiratory: Respiratory: Reports as per HPI and Denies dyspnea Gastrointestinal: Gastrointestinal: Reports as per HPI and Denies abdominal pain Genitourinary: Genitourinary: Reports as per HPI and Denies dysuria Musculoskeletal: Musculoskeletal: Reports as per HPI Neurologic: Reports as per HPI, Denies dizziness and Denies syncope [facility] Past Medical History Medical History Osteopenia Diastolic congestive heart failure (~03/2023) Type 2 diabetes mellitus with chronic kidney disease (~07/2021) Carpal tunnel syndrome, right Stage 3a chronic kidney disease Aortic stenosis Valvular heart disease Exertional dyspnea Chronic lumbar pain Hypertension Anxiety Osteoarthritis, multiple sites Migraines (~1991) Stage 3 chronic kidney disease (~2018) HLD (hyperlipidemia) (~2001) Surgical History Surgical History History of cataract surgery (~2015) bilateral History of carpal tunnel surgery of right wrist (~2015) Entrapment of right ulnar nerve at elbow (~2015) H/O arthroscopic knee surgery (~2002) left and right knee H/O: hysterectomy (~1983) w/ left oophorectomy Family History Family History Mother , @ 92 Family history of elevated blood lipids Hypertension Old age Basically of old age around 96 years old Father , @ 73 Family history of throat cancer Family history of malignant neoplasm of esophagus Respiratory care problem Had a laryngectomy many years prior, in his 70s of respiratory issues Sibling , @ 67 Hepatitis C Rheumatoid arthritis Sibling Congenital heart defect Social History Social History Social History: , lives alone. One daughter, several grandchildren. She enjoys traveling with her sister, usually long car trips across the country. They travel several times a year. 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 Smoking status: Never smoker Second hand tobacco smoke exposure: No Alcohol intake: never Substance use: never Substance use type: does not use Lack of Transportation: No Lack of Food: Never True Current Housing: I Have Housing Concerned About Future Housing: No Difficulty Paying Gas/Electric Bills: No Difficulty Paying for Meds: No Currently Unemployed: No Education: High School Diploma/GED Difficulty w/ Childcare or Family Care: No Living arrangements: with family Additional living arrangements comments: LIVES WITH SISTER Occupation/Education: retired Additional occupation/education comments: [employer] Gender identity (if verbalized by the patient): Female Spiritual care concerns: No Meds Home Medications and Allergies Home Medications ?Medication ?Instructions ?Recorded ?Confirmed ?Type mecobalamin (vitamin B12) 5,000 5,000 mcg PO HS 03/27/23 03/23/25 History mcg disintegrating tablet benzonatate 100 mg capsule 100 mg PO TID PRN cough #30 caps 05/11/24 03/23/25 Rx tramadol 50 mg tablet 50 mg PO DAILY PRN pain #30 tabs 07/14/24 03/23/25 Rx citalopram 40 mg tablet 40 mg PO QHS #90 tabs 01/07/25 03/23/25 Rx omeprazole 40 mg capsule,delayed 40 mg PO QHS #90 caps 01/07/25 03/23/25 Rx release rosuvastatin 40 mg tablet 40 mg PO QHS #90 tabs 01/07/25 03/23/25 Rx trazodone 150 mg tablet 150 mg PO QHS PRN insomnia #90 tabs 01/07/25 03/23/25 Rx calcium carbonate (Calcium 600) 600 mg PO BID #180 tabs 02/10/25 03/23/25 Rx cholecalciferol (vitamin D3) 50 50 mcg PO DAILY #90 caps 02/10/25 03/23/25 Rx mcg (2,000 unit) capsule atenolol 50 mg tablet 50 mg PO DAILY #90 tabs 03/08/25 03/23/25 Rx denosumab 60 mg/mL subcutaneous 60 mg subcut [id number] #1 mL 03/08/25 03/23/25 Rx syringe (Prolia) losartan 25 mg tablet 25 mg PO DAILY #90 tabs 03/08/25 03/23/25 Rx sumatriptan succinate 25 mg tablet See Rx Instructions PO .COMPLEX 03/08/25 03/23/25 Rx #10 tabs empagliflozin 10 mg tablet 10 mg PO DAILY #90 tabs 03/10/25 03/23/25 Rx (Jardiance) Allergies Allergy/AdvReac Type Severity Reaction Status Date / Time yellow fever vaccine live Allergy Severe SWELLING, Verified 03/27/25 10:05 JOINT PAIN latex Allergy Mild Swelling Verified 03/27/25 10:05 tetanus and diphtheria Allergy Unknown Swelling Verified 03/27/25 10:05 toxoids Tetanus Vaccines and Toxoid Allergy Unknown Swelling Verified 03/27/25 10:05 clavulanic acid (From AdvReac Severe vomiting, Verified 03/27/25 10:05 Augmentin) diarrhea clindamycin AdvReac Intermediate Nausea and Verified 03/27/25 10:05 Vomiting amoxicillin AdvReac Unknown Nausea and Verified 03/27/25 10:05 Vomiting Vital Signs Vital Signs - 24 hr 03/27/25 03:03 03/27/25 03:13 03/27/25 03:15 Temperature 98.6 F Pulse Rate 98 99 90 Pulse Rate [Bilateral Pedal (Dorsalis Pedis) Palpation] Pulse Rate [Monitor] Respiratory Rate 23 H 23 H 24 H Blood Pressure 156/97 H Pulse Oximetry 98 96 95 Oxygen Delivery Room Air 03/27/25 03:35 03/27/25 03:44 03/27/25 04:03 Temperature Pulse Rate 97 95 Pulse Rate [Bilateral Pedal (Dorsalis Pedis) Palpation] Pulse Rate [Monitor] Respiratory Rate 24 H 17 Blood Pressure 156/52 H Pulse Oximetry 98 95 Oxygen Delivery 03/27/25 04:10 03/27/25 04:10 03/27/25 04:15 Temperature Pulse Rate 98 100 95 Pulse Rate [Bilateral Pedal (Dorsalis Pedis) Palpation] Pulse Rate [Monitor] Respiratory Rate 23 H 22 H 20 Blood Pressure 157/75 H 157/75 H Pulse Oximetry 94 93 93 Oxygen Delivery 03/27/25 04:17 03/27/25 04:22 03/27/25 04:30 Temperature Pulse Rate 100 93 Pulse Rate [Bilateral Pedal (Dorsalis Pedis) Palpation] Pulse Rate [Monitor] Respiratory Rate 19 13 Blood Pressure 151/75 H Pulse Oximetry 93 94 Oxygen Delivery Room Air 03/27/25 04:32 03/27/25 04:33 03/27/25 04:45 Temperature Pulse Rate 99 99 92 Pulse Rate [Bilateral Pedal (Dorsalis Pedis) Palpation] Pulse Rate [Monitor] Respiratory Rate 15 17 19 Blood Pressure 147/74 H Pulse Oximetry 95 95 97 Oxygen Delivery 03/27/25 04:47 03/27/25 05:00 03/27/25 05:02 Temperature Pulse Rate 92 88 83 Pulse Rate [Bilateral Pedal (Dorsalis Pedis) Palpation] Pulse Rate [Monitor] Respiratory Rate 18 17 18 Blood Pressure 159/70 H 142/66 H Pulse Oximetry 95 96 96 Oxygen Delivery 03/27/25 05:15 03/27/25 05:30 03/27/25 05:32 Temperature Pulse Rate 84 83 85 Pulse Rate [Bilateral Pedal (Dorsalis Pedis) Palpation] Pulse Rate [Monitor] Respiratory Rate 21 H 17 24 H Blood Pressure 161/62 H Pulse Oximetry 95 94 95 Oxygen Delivery 03/27/25 05:45 03/27/25 06:00 03/27/25 06:02 Temperature Pulse Rate 88 91 96 Pulse Rate [Bilateral Pedal (Dorsalis Pedis) Palpation] Pulse Rate [Monitor] Respiratory Rate 18 22 H 19 Blood Pressure 159/58 H Pulse Oximetry 97 95 98 Oxygen Delivery 03/27/25 06:34 03/27/25 06:46 03/27/25 06:57 Temperature Pulse Rate 88 86 88 Pulse Rate [Bilateral Pedal (Dorsalis Pedis) Palpation] Pulse Rate [Monitor] Respiratory Rate Blood Pressure 166/55 H 156/66 H Pulse Oximetry Oxygen Delivery 03/27/25 07:03 03/27/25 07:31 03/27/25 09:02 Temperature 98.5 F Pulse Rate 96 92 91 Pulse Rate [Bilateral Pedal (Dorsalis Pedis) Palpation] 91 Pulse Rate [Monitor] 91 Respiratory Rate 20 23 H Blood Pressure 157/60 H 130/68 140/64 Pulse Oximetry 95 95 Oxygen Delivery 03/27/25 09:02 03/27/25 09:14 03/27/25 09:44 Temperature Pulse Rate 91 93 90 Pulse Rate [Bilateral Pedal (Dorsalis Pedis) Palpation] 93 90 Pulse Rate [Monitor] 93 90 Respiratory Rate 22 H 19 Blood Pressure 140/64 124/65 140/66 Pulse Oximetry 96 95 Oxygen Delivery 03/27/25 10:00 03/27/25 10:00 03/27/25 10:00 Temperature Pulse Rate 86 88 88 Pulse Rate [Bilateral Pedal (Dorsalis Pedis) Palpation] Pulse Rate [Monitor] Respiratory Rate 14 Blood Pressure 125/94 H 125/94 H Pulse Oximetry 96 Oxygen Delivery Exam Const: General: cooperative, healthy appearing and comfortable Resp: Auscultation: clear to auscultation bilaterally, no crackles, no rales, no rhonchi and no wheezes Cardio: Rate: regular rate Rhythm: regular rhythm Heart sounds: Murmur heart sound present (IV/ systolic murmur RICS) Peripheral pulses: dorsalis pedis present GI: GI Palp: No abdominal tenderness and Yes Soft to palpation Neuro: General: oriented to person, oriented to place and oriented to time Extrem: Right lower extremity: no edema Left lower extremity: no edema Results Labs and Meds 03/27/25 03:12 03/27/25 03:12 Lab results: Cardiac Enzymes 03/27/25 03/27/25 Range/Units 03:12 05:44 AST 50 H (14-36) U/L Troponin I 2.690 H* 5.350 H* D (0.000-0.034) ng/mL Coagulation 03/27/25 Range/Units 03:12 PT 12.9 (11.1-14.7) Seconds APTT 30.0 (22.3-36.8) Seconds CBC 03/27/25 Range/Units 03:12 WBC 8.4 (4.5-10.0) K/mm3 RBC 4.38 (4.2-5.4) M/mm3 Hgb 12.4 (12.0-15.0) g/dL Hct 38.7 (37.0-47.0) % Plt Count 210 (150-375) k/mm3 Lymph # (Auto) 2.67 (0.9-3.2) K/mm3 [place] # (Auto) 0.7 H (0.1-0.6) K/mm3 Eos # (Auto) 0.4 H (0-0.3) K/mm3 Baso # (Auto) 0.1 (0.0-0.1) K/mm3 Comprehensive Metabolic Panel 03/27/25 Range/Units 03:12 Sodium 135 L (137-145) mmol/L Potassium 3.7 (3.4-5.0) mmol/L Chloride 104 (98-107) mmol/L Carbon Dioxide 18 L (22-30) mmol/L BUN 23 H (7-17) mg/dL Creatinine 1.20 H (0.7-1.0) mg/dL Glucose 253 H (65-110) mg/dL Calcium 9.4 (8.4-10.2) mg/dL AST 50 H (14-36) U/L ALT 34 (6-35) U/L Alkaline Phosphatase 101 (38-126) U/L Total Protein 7.5 (6.3-8.2) g/dL Albumin 4.4 (3.5-5.1) g/dL Intake and Output 03/26/25 03/27/25 03/27/25 23:59 07:59 15:59 Intake Total 1.9 36.8 Balance 1.9 36.8 Intake: IV 1.9 36.8 Nitroglycerin IV Soln (*Bkc) 50 1.9 36.8 mg In Dextrose 5 % in Water Bd Ff 240 ml @ 5 MCG/MIN 1.5 mls/ hr IV CONT .Q24H [facility] Rx#: [id number] Patient Weight 03/27/25 23:59 Weight 88.8 kg
[2025-03-27] MEDS: ENOXAPARIN 40 MG/0.4 ML SYRINGE SUB-Q (11:15)
[2025-03-27] MEDS: LOSARTAN POTASSIUM 25 MG TABLET PO (11:15)
[2025-03-27] MEDS: ROSUVASTATIN 20 MG TABLET 40 MG PO (11:15)
[2025-03-27] MEDS: ASPIRIN 81 MG ENTERIC TABLET PO (11:16)
[2025-03-27] MEDS: EMPAGLIFLOZIN 10 MG TABLET PO (11:16)
[2025-03-27] MEDS: LACTATED RINGERS 1,000 ML 100 ML IV CONT (11:16)
[2025-03-27] MEDS: PANTOPRAZOLE 40 MG TABLET PO (11:16)
[2025-03-27 12:20] LABS: Partial Thromboplastin Time 133.2 Seconds (22.3-36.8)
[2025-03-27 12:40] LABS: Troponin I 21.600 ng/mL (0.000-0.034)
[2025-03-27 12:46] LABS: Add Urine Microscopic? YES; Appearance Urine Clear (Clear); Glucose Urine UA 3+ mg/dL (Negative); Leukocyte Esterase Ur Negative LEU/UL (Negative); Need Manual Microscopic Reviewed; Nitrate Urine Negative (Negative); Non Pathogenic Casts 0-2; Specific Grav Ur > 1.045 (1.001-1.035)
[2025-03-27] MEDS: IBUPROFEN 400 MG TABLET PO ×3 (13:24→23:25)
[2025-03-27 17:31] LABS: Partial Thromboplastin Time 44.0 Seconds (22.3-36.8)
--- NOTE | 2025-03-27 17:39 | PM.IMHP ---
H&P: HPI History of Present Illness Date/Time: 03/27/25 17:39 Chief Complaint: Chest pain Narrative: A pleasant 74-year-old female with history of obesity class 2, diabetes mellitus without current long-term use of insulin with chronic kidney disease, aortic stenosis, hypertension, dyslipidemia, anxiety presents to [facility] ER on 03/27/2025 in the ER in the morning complaining of chest pain. She is a regular patient of Dr. Ahumada Cardiology. Patient reports at midnight she was going to the restroom and she had sudden onset of mid substernal chest pain which was heavy but also as if someone were gripping sharp nails into her chest which radiated to her back and both arms. Her sister drove her to the ER. Her troponin was elevated his severe chest pain 04/02 taken to the [facility] lab[facility] by Dr. Bourgeois interventional cardiology. Review of Systems Review of Systems: All systems reviewed & are unremarkable except as noted in HPI and below (Subjective) PMFSH Past Medical History Medical History Osteopenia Diastolic congestive heart failure (~03/2023) Type 2 diabetes mellitus with chronic kidney disease (~07/2021) Carpal tunnel syndrome, right Stage 3a chronic kidney disease Aortic stenosis Valvular heart disease Exertional dyspnea Chronic lumbar pain Hypertension Anxiety Osteoarthritis, multiple sites Migraines (~1991) Stage 3 chronic kidney disease (~2018) HLD (hyperlipidemia) (~2001) Surgical History Surgical History History of cataract surgery (~2015) bilateral History of carpal tunnel surgery of right wrist (~2015) Entrapment of right ulnar nerve at elbow (~2015) H/O arthroscopic knee surgery (~2002) left and right knee H/O: hysterectomy (~1983) w/ left oophorectomy Family History Family History Mother , @ 92 Family history of elevated blood lipids Hypertension Old age Basically of old age around 96 years old Father , @ 73 Family history of throat cancer Family history of malignant neoplasm of esophagus Respiratory care problem Had a laryngectomy many years prior, in his 70s of respiratory issues Sibling , @ 67 Hepatitis C Rheumatoid arthritis Sibling Congenital heart defect Social History Social History Social History: , lives alone. One daughter, several grandchildren. She enjoys traveling with her sister, usually long car trips across the country. They travel several times a year. 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 Smoking status: Never smoker Second hand tobacco smoke exposure: No Alcohol intake: never Substance use: never Substance use type: does not use Lack of Transportation: No Lack of Food: Never True Current Housing: I Have Housing Concerned About Future Housing: No Difficulty Paying Gas/Electric Bills: No Difficulty Paying for Meds: No Currently Unemployed: No Education: High School Diploma/GED Difficulty w/ Childcare or Family Care: No Living arrangements: with family Additional living arrangements comments: LIVES WITH SISTER Occupation/Education: retired Additional occupation/education comments: [employer] Gender identity (if verbalized by the patient): Female Spiritual care concerns: No Meds Home Medications and Allergies Home Medications ?Medication ?Instructions ?Recorded ?Confirmed ?Type mecobalamin (vitamin B12) 5,000 5,000 mcg PO HS 03/27/23 03/27/25 History mcg disintegrating tablet tramadol 50 mg tablet 50 mg PO DAILY PRN pain #30 tabs 07/14/24 03/27/25 Rx citalopram 40 mg tablet 40 mg PO QHS #90 tabs 01/07/25 03/27/25 Rx omeprazole 40 mg capsule,delayed 40 mg PO QHS #90 caps 01/07/25 03/27/25 Rx release rosuvastatin 40 mg tablet 40 mg PO QHS #90 tabs 01/07/25 03/27/25 Rx trazodone 150 mg tablet 150 mg PO QHS PRN insomnia #90 tabs 01/07/25 03/27/25 Rx calcium carbonate (Calcium 600) 600 mg PO BID #180 tabs 02/10/25 03/27/25 Rx cholecalciferol (vitamin D3) 50 50 mcg PO DAILY #90 caps 02/10/25 03/27/25 Rx mcg (2,000 unit) capsule atenolol 50 mg tablet 50 mg PO DAILY #90 tabs 03/08/25 03/27/25 Rx denosumab 60 mg/mL subcutaneous 60 mg subcut [id number] #1 mL 03/08/25 03/27/25 Rx syringe (Prolia) losartan 25 mg tablet 25 mg PO DAILY #90 tabs 03/08/25 03/27/25 Rx sumatriptan succinate 25 mg tablet See Rx Instructions PO .COMPLEX 03/08/25 03/27/25 Rx #10 tabs empagliflozin 10 mg tablet 10 mg PO DAILY #90 tabs 03/10/25 03/27/25 Rx (Jardiance) Allergies Allergy/AdvReac Type Severity Reaction Status Date / Time yellow fever vaccine live Allergy Severe SWELLING, Verified 03/27/25 10:05 JOINT PAIN latex Allergy Mild Swelling Verified 03/27/25 10:05 tetanus and diphtheria Allergy Unknown Swelling Verified 03/27/25 10:05 toxoids Tetanus Vaccines and Toxoid Allergy Unknown Swelling Verified 03/27/25 10:05 clavulanic acid (From AdvReac Severe vomiting, Verified 03/27/25 10:05 Augmentin) diarrhea clindamycin AdvReac Intermediate Nausea and Verified 03/27/25 10:05 Vomiting amoxicillin AdvReac Unknown Nausea and Verified 03/27/25 10:05 Vomiting Vital Signs Vital Signs - 24 hr 03/27/25 03:03 03/27/25 03:13 03/27/25 03:15 Temperature 98.6 F Pulse Rate 98 99 90 Pulse Rate [Bilateral Pedal (Dorsalis Pedis) Palpation] Pulse Rate [Monitor] Respiratory Rate 23 H 23 H 24 H Blood Pressure 156/97 H Pulse Oximetry 98 96 95 Oxygen Delivery Room Air 03/27/25 03:35 03/27/25 03:44 03/27/25 04:03 Temperature Pulse Rate 97 95 Pulse Rate [Bilateral Pedal (Dorsalis Pedis) Palpation] Pulse Rate [Monitor] Respiratory Rate 24 H 17 Blood Pressure 156/52 H Pulse Oximetry 98 95 Oxygen Delivery 03/27/25 04:10 03/27/25 04:10 03/27/25 04:15 Temperature Pulse Rate 98 100 95 Pulse Rate [Bilateral Pedal (Dorsalis Pedis) Palpation] Pulse Rate [Monitor] Respiratory Rate 23 H 22 H 20 Blood Pressure 157/75 H 157/75 H Pulse Oximetry 94 93 93 Oxygen Delivery 03/27/25 04:17 03/27/25 04:22 03/27/25 04:30 Temperature Pulse Rate 100 93 Pulse Rate [Bilateral Pedal (Dorsalis Pedis) Palpation] Pulse Rate [Monitor] Respiratory Rate 19 13 Blood Pressure 151/75 H Pulse Oximetry 93 94 Oxygen Delivery Room Air 03/27/25 04:32 03/27/25 04:33 03/27/25 04:45 Temperature Pulse Rate 99 99 92 Pulse Rate [Bilateral Pedal (Dorsalis Pedis) Palpation] Pulse Rate [Monitor] Respiratory Rate 15 17 19 Blood Pressure 147/74 H Pulse Oximetry 95 95 97 Oxygen Delivery 03/27/25 04:47 03/27/25 05:00 03/27/25 05:02 Temperature Pulse Rate 92 88 83 Pulse Rate [Bilateral Pedal (Dorsalis Pedis) Palpation] Pulse Rate [Monitor] Respiratory Rate 18 17 18 Blood Pressure 159/70 H 142/66 H Pulse Oximetry 95 96 96 Oxygen Delivery 03/27/25 05:15 03/27/25 05:30 03/27/25 05:32 Temperature Pulse Rate 84 83 85 Pulse Rate [Bilateral Pedal (Dorsalis Pedis) Palpation] Pulse Rate [Monitor] Respiratory Rate 21 H 17 24 H Blood Pressure 161/62 H Pulse Oximetry 95 94 95 Oxygen Delivery 03/27/25 05:45 03/27/25 06:00 03/27/25 06:02 Temperature Pulse Rate 88 91 96 Pulse Rate [Bilateral Pedal (Dorsalis Pedis) Palpation] Pulse Rate [Monitor] Respiratory Rate 18 22 H 19 Blood Pressure 159/58 H Pulse Oximetry 97 95 98 Oxygen Delivery 03/27/25 06:34 03/27/25 06:46 03/27/25 06:57 Temperature Pulse Rate 88 86 88 Pulse Rate [Bilateral Pedal (Dorsalis Pedis) Palpation] Pulse Rate [Monitor] Respiratory Rate Blood Pressure 166/55 H 156/66 H Pulse Oximetry Oxygen Delivery 03/27/25 07:03 03/27/25 07:31 03/27/25 09:02 Temperature 98.5 F Pulse Rate 96 92 91 Pulse Rate [Bilateral Pedal (Dorsalis Pedis) Palpation] 91 Pulse Rate [Monitor] 91 Respiratory Rate 20 23 H Blood Pressure 157/60 H 130/68 140/64 Pulse Oximetry 95 95 Oxygen Delivery 03/27/25 09:02 03/27/25 09:14 03/27/25 09:44 Temperature Pulse Rate 91 93 90 Pulse Rate [Bilateral Pedal (Dorsalis Pedis) Palpation] 93 90 Pulse Rate [Monitor] 93 90 Respiratory Rate 22 H 19 Blood Pressure 140/64 124/65 140/66 Pulse Oximetry 96 95 Oxygen Delivery 03/27/25 10:00 03/27/25 10:00 03/27/25 10:00 Temperature Pulse Rate 86 88 88 Pulse Rate [Bilateral Pedal (Dorsalis Pedis) Palpation] Pulse Rate [Monitor] Respiratory Rate 14 Blood Pressure 125/94 H 125/94 H Pulse Oximetry 96 Oxygen Delivery 03/27/25 10:14 03/27/25 11:00 03/27/25 11:14 Temperature Pulse Rate 86 99 88 Pulse Rate [Bilateral Pedal (Dorsalis Pedis) Palpation] 86 88 Pulse Rate [Monitor] 86 88 Respiratory Rate 15 20 20 Blood Pressure 142/77 H 127/77 125/94 H Pulse Oximetry 95 94 94 Oxygen Delivery 03/27/25 11:15 03/27/25 12:00 03/27/25 12:00 Temperature 98.1 F Pulse Rate 96 88 84 Pulse Rate [Bilateral Pedal (Dorsalis Pedis) Palpation] Pulse Rate [Monitor] Respiratory Rate 15 Blood Pressure 149/69 H 149/69 H Pulse Oximetry 94 Oxygen Delivery 03/27/25 12:00 03/27/25 12:00 03/27/25 12:14 Temperature Pulse Rate 86 82 Pulse Rate [Bilateral Pedal (Dorsalis Pedis) Palpation] 82 Pulse Rate [Monitor] 82 Respiratory Rate 16 Blood Pressure 149/69 H Pulse Oximetry 91 94 Oxygen Delivery Room Air 03/27/25 12:15 03/27/25 13:00 03/27/25 14:00 Temperature Pulse Rate 90 73 67 Pulse Rate [Bilateral Pedal (Dorsalis Pedis) Palpation] Pulse Rate [Monitor] Respiratory Rate 20 Blood Pressure 149/69 H 116/56 L Pulse Oximetry 91 Oxygen Delivery 03/27/25 14:00 03/27/25 14:14 03/27/25 15:00 Temperature Pulse Rate 77 64 58 L Pulse Rate [Bilateral Pedal (Dorsalis Pedis) Palpation] 64 Pulse Rate [Monitor] 64 Respiratory Rate 18 19 18 Blood Pressure 111/54 L 122/51 L 120/54 L Pulse Oximetry 95 93 93 Oxygen Delivery 03/27/25 16:00 03/27/25 16:00 Temperature Pulse Rate 65 65 Pulse Rate [Bilateral Pedal (Dorsalis Pedis) Palpation] Pulse Rate [Monitor] Respiratory Rate 16 Blood Pressure 124/54 L Pulse Oximetry 89 L Oxygen Delivery Exam Const: General: comfortable and no acute distress HENMT: Mouth: Yes moist mucous membranes Eyes: Pupils: Equal, round and reactive pupils present Neck: Neck: supple Resp: Effort & Inspection: normal respiratory effort Auscultation: clear to auscultation bilaterally Cardio: Rate: regular rate Rhythm: regular rhythm Heart sounds: Murmur heart sound present GI: Inspection: non-distended GI Palp: Yes Soft to palpation and No Tenderness to palpation present (GI) Neuro: Motor exam (neuro): 5/5 motor strength present throughout Extrem: General: no edema H&P: Results Labs Labs: Short CBC 03/27/25 Range/Units 03:12 WBC 8.4 (4.5-10.0) K/mm3 Hgb 12.4 (12.0-15.0) g/dL Hct 38.7 (37.0-47.0) % Plt Count 210 (150-375) k/mm3 BMP 03/27/25 03:12 Sodium 135 L Potassium 3.7 Chloride 104 Carbon Dioxide 18 L BUN 23 H Creatinine 1.20 H Glucose 253 H Calcium 9.4 Cardiac Enzymes 03/27/25 03/27/25 03/27/25 Range/Units 03:12 05:44 12:00 Troponin I 2.690 H* 5.350 H* D 21.600 H* D (0.000-0.034) ng/mL Liver Function 03/27/25 Range/Units 03:12 Total Bilirubin 0.4 (0.2-1.3) mg/dL AST 50 H (14-36) U/L ALT 34 (6-35) U/L Alkaline Phosphatase 101 (38-126) U/L Albumin 4.4 (3.5-5.1) g/dL Urine 03/27/25 Range/Units 12:28 Urine Color Yellow (Yellow) Urine Appearance Clear (Clear) Urine pH 5.5 (5.0-9.0) Ur Specific [place] > 1.045 H (1.001-1.035) Urine Protein 1+ H (Negative) mg/dL Urine Glucose (UA) 3+ H (Negative) mg/dL Assessment and Plan Assessment and plan (1) Hypertension: Qualifiers: Hypertension type: primary hypertension Qualified Code(s): I10 - Essential (primary) hypertension Code(s): I10 - Essential (primary) hypertension Status: Acute (2) Aortic stenosis: Code(s): I35.0 - Nonrheumatic aortic (valve) stenosis Status: Acute (3) Non-ST elevation [place] (NSTEMI): Code(s): I21.4 - Non-ST elevation (NSTEMI) myocardial infarction Status: Acute (4) Type 2 diabetes mellitus with chronic kidney disease: Onset Date: ~07/2021 Qualifiers: 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: without termite control technician use Chronic kidney disease stage: stage 3 (moderate) Chronic kidney disease stage 3 subtype: stage 3b (GFR 30-44) Qualified Code(s): E11.22 - Type 2 diabetes mellitus with diabetic chronic kidney disease; N18.32 - Chronic kidney disease, stage 3b Code(s): E11.22 - Type 2 diabetes mellitus with diabetic chronic kidney disease Status: Acute Plan A pleasant 74-year-old female with history of obesity class 2, diabetes mellitus without current long-term use of insulin with chronic kidney disease, diastolic heart failure, aortic stenosis, hypertension, dyslipidemia, anxiety presents to [facility] ER on 03/27/2025 in the ER in the morning complaining of chest pain. She is a regular patient of Dr. Ahumada Cardiology. Patient reports at midnight she was going to the restroom and she had sudden onset of mid substernal chest pain which was heavy but also as if someone were gripping sharp nails into her chest which radiated to her back and both arms. Her sister drove her to the ER. Her troponin was elevated his severe chest pain 04/02 taken to the [facility] lab[facility] by Dr. Bourgeois interventional cardiology. ----- Left heart catheterization and coronary angiogram performed on 03/27/2025: Findings:: Left main normal Lad normal vessel with no obstructive disease. Left circumflex gives rise to OM branches with no obstructive disease RCA dominant vessel no obstructive disease ----- Management per intensive care and Cardiology. Per Dr. Ahumada: Deemed to be [place]. Troponin continues to elevate, pending initiation of heparin GTT, pending PTT. Hold Lovenox, received on the morning of 03/27/2025. On nitroglycerin drip. Continue trending troponin. Pending echocardiogram. Continue atenolol 50 mg p.o. q.day, aspirin 81 mg p.o. q.day, rosuvastatin 40 mg p.o. q.day. Being given ibuprofen 400 mg p.o. q.6 hours x3. She does have reproducible chest pain palpation of the sternal notch, however this would not cause this degree of troponin elevation. On fluids Diabetes mellitus without current long-term use of insulin: Accu-Cheks a.c. HS., continue Jardiance Chronic kidney disease: Baseline serum creatinine between 1.1 and 1.5. Serum creatinine 1.2 on admission. Continue to monitor after contrast exposure with coronary angiogram, receiving fluids afterwards. Diastolic heart failure: On Jardiance and atenolol at home, no diuretics. Monitor volume status. ----- Modified code. Okay for intubation, no CPR. Lovenox/heparin GTT PPI Prior to admission patient living with her sister Isabel. Independent at baseline. Admission to ICU Hospitalist [facility] Advance Care Plan I have confirmed that the patient's Advanced Care Plan is present, code status is documented, or surrogate decision maker is listed in patient medical record.: Yes Medication Reconciliation I have utilized all available resources to obtain, update and review the patients current medications (includes all prescriptions, OTC, herbals, cannabis, and nutritional supplements).: Yes
[2025-03-27 17:45] LABS: Troponin I 31.900 ng/mL (0.000-0.034)
[2025-03-27] MEDS: ACETAMINOPHEN 325 MG TABLET 650 MG PO (18:47)
[2025-03-28] VITALS (25 sets, daily range): BP systolic 112–169; BP diastolic 51–83; PULSE 59–83; RESP 13–21; TEMP 36.7–37.1; O2SAT 90–99
[2025-03-28 01:41] LABS: Partial Thromboplastin Time 84.8 Seconds (22.3-36.8)
[2025-03-28 03:54] LABS: Hematocrit 33.0 % (37.0-47.0); Hemoglobin 10.4 g/dL (12.0-15.0); Immature Granulocyte Percent A 0.2 % (0-0.5); Lymphocytes Absolute Auto 1.88 K/mm3 (0.9-3.2); Mean Corpuscular HGB Conc 31.5 g/dl (32-36); Mean Corpuscular Hemoglobin 28.4 pg (26-34); Mean Corpuscular Volume 90.2 fl (80-100); Nucleated Red Blood Cells Absolute Auto 0.000 K/mm3 (0.0-0.012); Nucleated Red Blood Cells Perc 0.0 % (0.0-0.2); Platelet Count Result 161 k/mm3 (150-375); Red Blood Count 3.66 M/mm3 (4.2-5.4); White Blood Count 6.2 K/mm3 (4.5-10.0)
[2025-03-28 04:16] LABS: Alanine Aminotransferase 28 U/L (6-35); Albumin Level 3.5 g/dL (3.5-5.1); Alkaline Phosphatase 83 U/L (38-126); Anion Gap 4 mmol/L (4-12); Aspartate Amino Transferase 103 U/L (14-36); Bilirubin,Total 0.6 mg/dL (0.2-1.3); Blood Urea Nitrogen 16 mg/dL (7-17); Calcium 8.5 mg/dL (8.4-10.2); Carbon Dioxide 22 mmol/L (22-30); Chloride 109 mmol/L (98-107); Estimated CRCL calculation 38 ml/min; Estimated Glomerular Filt Rate 45; Glucose 126 mg/dL (65-110); Magnesium 2.1 mg/dL (1.6-2.3); Potassium 4.2 mmol/L (3.4-5.0); Sodium 135 mmol/L (137-145); Total Protein 6.1 g/dL (6.3-8.2)
[2025-03-28 04:32] LABS: Troponin I 30.500 ng/mL (0.000-0.034)
--- NOTE | 2025-03-28 07:26 | ECG_ITS ---
Test Date: 2025-03-28 07:31:44 Measurements Intervals [place] Rate: 78 P: 114 [place]: 165 QRS: 128 QRSD: 102 T: 130 QT: 442 QTc: 507 Interpretive Statements SINUS RHYTHM RIGHT AXIS DEVIATION POSSIBLE LEFT ATRIAL ENLARGEMENT ANTEROLATERAL INFARCT, AGE INDETERMINATE INFERIOR INFARCT, AGE INDETERMINATE BASELINE ARTIFACT- I, II, III, AVR, AVL, AVF ABNORMAL ECG Compared to ECG 03/27/2025 05:46:01 No significant changes Electronically Signed On 03-28-2025 08:38:40 CDT by Aris Ahumada D.O.
--- NOTE | 2025-03-28 07:44 | P.PNINT_ITS ---
Progress Note: A&P Assessment and Plan (1) Chest pain: Code(s): R07.9 - Chest pain, unspecified Status: Acute Assessment and Plan: Patient presented with chest pain which from history appears noncardiac in natu re but had abnormal and elevated troponin. She does have risk factors of coronary disease hence patient was diagnosed with NSTEMI Cardiac catheterization showed no significant coronary disease or blockages. CTA chest abdomen pelvis IMPRESSION: 1. Aortic atherosclerosis. No aneurysm or dissection. 2. Moderate-sized sliding hiatal hernia. She did had elevated blood pressure. Exam and history appears to be musculoskeletal or pleuritic pain EKG not suggestive of pericarditis Patient was treated with ibuprofen Nitroglycerin infusion has been weaned off Continue Protonix for GERD Continue aspirin statin, beta-rory, ARB She was started on heparin infusion by Cardiology last night which has been stopped this morning due to bruising at the cardiac catheterization site. Chest pain is significantly improved as she rates at 1/10 Echocardiogram Summary 1. Definity contrast administered improved wall motion interpretation. 2. Left ventricular chamber dimension is normal. 3. Left ventricular systolic function is normal, estimated at 60-65. 4. There is moderate concentric increased left ventricular wall thickness. 5. The left ventricular diastolic function is grade I diastolic dysfunction. 6. E/e' 10 is mildly elevated. 7. The aortic valve is not well visualized. Possible bicuspid aortic valve. 8. There is severe aortic valve sclerosis. 9. There is moderate aortic valve stenosis with a peak velocity of 312 cm/s, mean gradient of 21 mmHg, and aortic valve area of 1.5 cm2. 10. There is mild to moderate aortic valve regurgitation. (2) Hypertension: Qualifiers: Hypertension type: primary hypertension Qualified Code(s): I10 - Essential (primary) hypertension Code(s): I10 - Essential (primary) hypertension Status: Acute Assessment and Plan: Continue beta-rory and losartan Off nitroglycerin infusion P.r.n. labetalol and hydralazine (3) NSTEMI (non-ST elevated myocardial infarction): Code(s): I21.4 - Non-ST elevation (NSTEMI) myocardial infarction Status: Acute Assessment and Plan: See above (4) HLD (hyperlipidemia): Onset Date: ~2001 Qualifiers: Hyperlipidemia type: unspecified Qualified Code(s): E78.5 - Hyperlipidemia, unspecified Code(s): E78.5 - Hyperlipidemia, unspecified Status: Chronic Assessment and Plan: Continue rosuvastatin (5) Diastolic congestive heart failure: Onset Date: ~03/2023 Qualifiers: Heart failure chronicity: chronic Qualified Code(s): I50.32 - Chronic diastolic (congestive) heart failure Code(s): I50.30 - Unspecified diastolic (congestive) heart failure Status: Acute Assessment and Plan: Continue beta-rory ARB Jardiance (6) Diabetes mellitus with chronic kidney disease: Code(s): E11.22 - Type 2 diabetes mellitus with diabetic chronic kidney disease Status: Acute Assessment and Plan: Sliding scale insulin check HbA1c Continue Jardiance (7) Stage 3 chronic kidney disease: Onset Date: ~2018 Qualifiers: Chronic kidney disease stage 3 subtype: stage 3a (GFR 45-59) Qualified Code(s): N18.31 - Chronic kidney disease, stage 3a Code(s): N18.3 - Chronic kidney disease, stage 3 (moderate) Status: Inactive Assessment and Plan: Creatinine appears to be baseline Monitor urine output electrolytes creat Patient was given Cautious IV fluids for renal protection (8) GERD (gastroesophageal reflux disease): Qualifiers: Esophagitis presence: without esophagitis Qualified Code(s): K21.9 - Gastro-esophageal reflux disease without esophagitis Code(s): K21.9 - Gastro-esophageal reflux disease without esophagitis Status: Acute Assessment and Plan: Continue protonix (9) Hematoma: Code(s): T14.8XXA - Other injury of unspecified body region, initial encounter Status: Acute Assessment and Plan: Patient was started on heparin infusion last night by Cardiology. I was not aware of that change. Patient developed bruising around the cardiac catheterization site. Nurse spoke to Cardiology again this morning and heparin was discontinued. Exam as above. Patient denies any pain I have marked the area with a pen and will monitor Monitor hemoglobin q.6 hours Hold all anticoagulation . Plan DVT prophylaxis -SCD Stress ulcer prophylaxis -PPI Nutrition -diet ordered Code Status -patient does not want CPR and is DNR. Transfer out ICU today Subjective Date/time seen: 03/28/25 Overnight events reviewed. Afebrile Patient states pain is down 1/10. Patient denies fever, shortness of breath, cough, nausea vomiting, abdominal pain,, diarrhea, headache or constipation. All other systems were reviewed and were negative Nitroglycerin infusion weaned off She is on room air Tolerating p.o. diet Good urine output She was started on heparin infusion around 7:00 p.m. yesterday and it was discontinued this morning due to patient developed bruising and hematoma at the cardiac catheterization site. Patient denies any pain at that area. Review of Systems Review of Systems: All systems reviewed & are unremarkable except as noted in HPI and below Exam Narrative: General: Pt is alert awake and in NAD Lungs/Chest: Trachea central Clear BS B/L, No crackles or wheezing. Patient has tenderness to palpation on sternum Cardiac: RRR. Normal S1 S2. No murmurs Circulation: Pedal pulses are intact and symmetrical. Abdomen: Normal bowel sounds.. Soft. NT. ND. Extremities: Try to wean shows bruising around the cardiac catheter inside. There is little bit of firmness on exam. Bruising extends into pubic area. Patient is not tender. Area was marked with the marker : Meehan in place Neurologic: Follows commands. Moves all 4 extremities PERRL AO x3 Skin: No Rash Objective Data Vital Signs Vital Signs: Vital Signs - 24 hr 03/27/25 09:02 03/27/25 09:02 03/27/25 09:14 Temperature 36.9 C Pulse Rate 91 91 93 Pulse Rate [Bilateral Pedal (Dorsalis Pedis) Palpation] 91 93 Pulse Rate [Monitor] 91 93 Respiratory Rate 23 H 22 H Blood Pressure 140/64 140/64 124/65 Pulse Oximetry 95 96 Oxygen Delivery Oxygen Flow Rate Fraction of Inspired Oxygen 03/27/25 09:44 03/27/25 10:00 03/27/25 10:00 Temperature Pulse Rate 90 86 88 Pulse Rate [Bilateral Pedal (Dorsalis Pedis) Palpation] 90 Pulse Rate [Monitor] 90 Respiratory Rate 19 14 Blood Pressure 140/66 125/94 H Pulse Oximetry 95 96 Oxygen Delivery Oxygen Flow Rate Fraction of Inspired Oxygen 03/27/25 10:00 03/27/25 10:14 03/27/25 11:00 Temperature Pulse Rate 88 86 99 Pulse Rate [Bilateral Pedal (Dorsalis Pedis) Palpation] 86 Pulse Rate [Monitor] 86 Respiratory Rate 15 20 Blood Pressure 125/94 H 142/77 H 127/77 Pulse Oximetry 95 94 Oxygen Delivery Oxygen Flow Rate Fraction of Inspired Oxygen 03/27/25 11:14 03/27/25 11:15 03/27/25 12:00 Temperature 36.7 C Pulse Rate 88 96 88 Pulse Rate [Bilateral Pedal (Dorsalis Pedis) Palpation] 88 Pulse Rate [Monitor] 88 Respiratory Rate 20 15 Blood Pressure 125/94 H 149/69 H Pulse Oximetry 94 94 Oxygen Delivery Oxygen Flow Rate Fraction of Inspired Oxygen 03/27/25 12:00 03/27/25 12:00 03/27/25 12:00 Temperature Pulse Rate 84 86 Pulse Rate [Bilateral Pedal (Dorsalis Pedis) Palpation] Pulse Rate [Monitor] Respiratory Rate Blood Pressure 149/69 H Pulse Oximetry 91 Oxygen Delivery Room Air Oxygen Flow Rate Fraction of Inspired Oxygen 03/27/25 12:14 03/27/25 12:15 03/27/25 13:00 Temperature Pulse Rate 82 90 73 Pulse Rate [Bilateral Pedal (Dorsalis Pedis) Palpation] 82 Pulse Rate [Monitor] 82 Respiratory Rate 16 20 Blood Pressure 149/69 H 149/69 H 116/56 L Pulse Oximetry 94 91 Oxygen Delivery Oxygen Flow Rate Fraction of Inspired Oxygen 03/27/25 14:00 03/27/25 14:00 03/27/25 14:00 Temperature Pulse Rate 67 77 58 L Pulse Rate [Bilateral Pedal (Dorsalis Pedis) Palpation] Pulse Rate [Monitor] Respiratory Rate 18 Blood Pressure 111/54 L 111/54 L Pulse Oximetry 95 Oxygen Delivery Oxygen Flow Rate Fraction of Inspired Oxygen 03/27/25 14:14 03/27/25 15:00 03/27/25 16:00 Temperature Pulse Rate 64 58 L 65 Pulse Rate [Bilateral Pedal (Dorsalis Pedis) Palpation] 64 Pulse Rate [Monitor] 64 Respiratory Rate 19 18 Blood Pressure 122/51 L 120/54 L Pulse Oximetry 93 93 Oxygen Delivery Oxygen Flow Rate Fraction of Inspired Oxygen 03/27/25 16:00 03/27/25 16:00 03/27/25 16:00 Temperature Pulse Rate 65 61 79 Pulse Rate [Bilateral Pedal (Dorsalis Pedis) Palpation] Pulse Rate [Monitor] Respiratory Rate 16 Blood Pressure 124/54 L 121/61 Pulse Oximetry 89 L 94 Oxygen Delivery Room Air Oxygen Flow Rate Fraction of Inspired Oxygen 03/27/25 17:00 03/27/25 18:00 03/27/25 18:00 Temperature Pulse Rate 72 65 66 Pulse Rate [Bilateral Pedal (Dorsalis Pedis) Palpation] Pulse Rate [Monitor] Respiratory Rate 20 17 Blood Pressure 122/59 L 121/55 L Pulse Oximetry 94 93 Oxygen Delivery Oxygen Flow Rate Fraction of Inspired Oxygen 03/27/25 18:00 03/27/25 18:55 03/27/25 19:00 Temperature Pulse Rate 76 80 78 Pulse Rate [Bilateral Pedal (Dorsalis Pedis) Palpation] Pulse Rate [Monitor] Respiratory Rate 18 Blood Pressure 124/63 106/56 L 122/62 Pulse Oximetry 94 Oxygen Delivery Oxygen Flow Rate Fraction of Inspired Oxygen 03/27/25 20:00 03/27/25 20:00 03/27/25 20:00 Temperature 36.8 C Pulse Rate 67 67 Pulse Rate [Bilateral Pedal (Dorsalis Pedis) Palpation] Pulse Rate [Monitor] Respiratory Rate 17 Blood Pressure 133/88 133/88 Pulse Oximetry 92 92 Oxygen Delivery Room Air Oxygen Flow Rate Fraction of Inspired Oxygen 03/27/25 20:00 03/27/25 20:24 03/27/25 20:41 Temperature Pulse Rate 67 63 Pulse Rate [Bilateral Pedal (Dorsalis Pedis) Palpation] Pulse Rate [Monitor] Respiratory Rate 20 Blood Pressure Pulse Oximetry 94 87 L Oxygen Delivery Room Air Nasal Cannula Oxygen Flow Rate 2 Fraction of Inspired Oxygen 21 03/27/25 21:00 03/27/25 22:00 03/27/25 22:00 Temperature Pulse Rate 63 65 65 Pulse Rate [Bilateral Pedal (Dorsalis Pedis) Palpation] Pulse Rate [Monitor] Respiratory Rate 17 17 Blood Pressure 127/63 133/66 Pulse Oximetry 96 96 Oxygen Delivery Oxygen Flow Rate Fraction of Inspired Oxygen 03/27/25 22:00 03/27/25 23:00 03/27/25 23:00 Temperature Pulse Rate 65 64 65 Pulse Rate [Bilateral Pedal (Dorsalis Pedis) Palpation] Pulse Rate [Monitor] Respiratory Rate 17 Blood Pressure 133/66 130/59 L 130/59 L Pulse Oximetry 97 Oxygen Delivery Oxygen Flow Rate Fraction of Inspired Oxygen 03/27/25 23:26 03/28/25 00:00 03/28/25 00:00 Temperature 36.8 C Pulse Rate 71 62 62 Pulse Rate [Bilateral Pedal (Dorsalis Pedis) Palpation] Pulse Rate [Monitor] Respiratory Rate 16 Blood Pressure 137/58 L 126/54 L Pulse Oximetry 97 Oxygen Delivery Oxygen Flow Rate Fraction of Inspired Oxygen 03/28/25 00:00 03/28/25 00:00 03/28/25 01:00 Temperature Pulse Rate 62 72 Pulse Rate [Bilateral Pedal (Dorsalis Pedis) Palpation] Pulse Rate [Monitor] Respiratory Rate 18 Blood Pressure 126/54 L 121/64 Pulse Oximetry 97 98 Oxygen Delivery Nasal Cannula Oxygen Flow Rate 1 Fraction of Inspired Oxygen 03/28/25 02:00 03/28/25 02:00 03/28/25 02:00 Temperature Pulse Rate 71 71 71 Pulse Rate [Bilateral Pedal (Dorsalis Pedis) Palpation] Pulse Rate [Monitor] Respiratory Rate 18 Blood Pressure 133/53 L 133/53 L Pulse Oximetry 96 Oxygen Delivery Oxygen Flow Rate Fraction of Inspired Oxygen 03/28/25 03:00 03/28/25 04:00 03/28/25 04:00 Temperature Pulse Rate 66 74 74 Pulse Rate [Bilateral Pedal (Dorsalis Pedis) Palpation] Pulse Rate [Monitor] Respiratory Rate 17 Blood Pressure 116/56 L 129/72 Pulse Oximetry 96 Oxygen Delivery Oxygen Flow Rate Fraction of Inspired Oxygen 03/28/25 04:00 03/28/25 04:00 03/28/25 04:15 Temperature 36.7 C Pulse Rate 74 74 Pulse Rate [Bilateral Pedal (Dorsalis Pedis) Palpation] Pulse Rate [Monitor] Respiratory Rate 20 Blood Pressure 129/72 156/67 H Pulse Oximetry 93 93 Oxygen Delivery Nasal Cannula Oxygen Flow Rate 1 Fraction of Inspired Oxygen 03/28/25 05:00 03/28/25 06:00 03/28/25 06:00 Temperature Pulse Rate 72 77 77 Pulse Rate [Bilateral Pedal (Dorsalis Pedis) Palpation] Pulse Rate [Monitor] Respiratory Rate 19 19 Blood Pressure 154/68 H 157/70 H Pulse Oximetry 96 97 Oxygen Delivery Oxygen Flow Rate Fraction of Inspired Oxygen 03/28/25 06:00 03/28/25 07:00 03/28/25 07:00 Temperature Pulse Rate 77 83 83 Pulse Rate [Bilateral Pedal (Dorsalis Pedis) Palpation] Pulse Rate [Monitor] Respiratory Rate 21 H Blood Pressure 157/70 H 149/75 H 149/75 H Pulse Oximetry 92 Oxygen Delivery Oxygen Flow Rate Fraction of Inspired Oxygen Intake/Output Intake/Output: Intake & Output 03/25/25 03/26/25 03/27/25 03/28/25 23:59 23:59 23:59 23:59 Intake Total 1216.9 373.9 Output Total 900 1150 Balance 316.9 -776.1 Meds/Results Medications: Active Medications Generic Name Dose Route Start Last Admin Trade Name Freq PRN Reason Stop Dose Admin Acetaminophen 650 mg 03/27/25 06:00 03/27/25 18:47 Acetaminophen 325 Mg Tablet PO 650 mg Q4H PRN Administration Mild Pain (1-3) or Fever Aspirin 81 mg 03/27/25 09:00 03/27/25 11:16 Aspirin 81 Mg Enteric Tablet PO 81 mg QAM MAKENNA Administration Atenolol 50 mg 03/27/25 09:00 03/27/25 11:15 Atenolol 50 Mg Tablet PO 50 mg DAILY MAKENNA Administration Dextrose 12.5 gm 03/27/25 08:34 Dextrose 50% 25 Gm/50 Ml Syringe IV PUSH PRN PRN Hypoglycemia Protocol Empagliflozin 10 mg 03/27/25 09:00 03/27/25 11:16 Empagliflozin 10 Mg Tablet PO 10 mg DAILY MAKENNA Administration Enoxaparin Sodium 40 mg 03/27/25 11:00 03/27/25 11:15 Enoxaparin 40 Mg/0.4 Ml Syringe SUB-Q 40 mg On Hold: 03/27/25 12:50 DAILY MAKENNA Administration Glucagon 1 mg 03/27/25 08:34 Glucagon For Inj 1 Mg Vial IM PRN PRN Hypoglycemia Protocol Glucose 15 gm 03/27/25 08:34 Glucose Oral Gel 15 Gm Of Glucse In 37.5 Gm Tube PO PRN PRN Hypoglycemia Protocol Heparin Sodium (Porcine) 4,000 units 03/27/25 18:05 Heparin Sodium 5,000 Units/Ml Vial IV PUSH PRN PRN aPTT less than 55 seconds Heparin Sodium (Porcine) 2,500 units 03/27/25 18:05 Heparin Sodium 5,000 Units/Ml Vial IV PUSH PRN PRN aPTT 55 - 70 seconds Hydralazine HCl 20 mg 03/27/25 10:06 Hydralazine Hcl 20 Mg/Ml Vial IV PUSH Q4H PRN SBP more than 160 Dextrose 1,000 mls @ 100 mls/hr 03/27/25 08:34 Dextrose 5% 1,000 Ml IVPB PRN PRN Hypoglycemia Protocol Heparin Sodium/Dextrose 25,000 units in 250 mls @ 8 mls/hr 03/27/25 18:05 10/05/25 07:26 Heparin Sodium/D5w 100 Units/Ml IV CONT 0 units/hr On Hold: 03/28/25 07:26 .Q24H MAKENNA 0 mls/hr Protocol Titration 800 UNITS/HR Insulin Aspart 3 - 6 units 03/27/25 08:00 03/27/25 17:51 Insulin Aspart (*Bkc) 100 Units/Ml SUB-Q Not Given TIDWM [facility] Protocol Insulin Aspart 1 - 3 units 03/27/25 21:00 03/27/25 20:05 Insulin Aspart (*Bkc) 100 Units/Ml SUB-Q Not Given HS [facility] Protocol Labetalol HCl 20 mg 03/27/25 10:06 Labetalol Hcl Inj 100 Mg/20 Ml Vial IV PUSH Q4H PRN SBP > 160 and HR> 60 -1st choice Losartan Potassium 25 mg 03/27/25 09:00 03/27/25 11:15 Losartan Potassium 25 Mg Tablet PO 25 mg DAILY MAKENNA Administration Nitroglycerin 0.4 mg 03/27/25 04:12 03/27/25 04:19 Nitroglycerin Sl 0.4 Mg Tablet SUBLINGUAL 0.4 mg ONCE PRN Administration Pain Rated 6 or Greater Ondansetron HCl 4 mg 03/27/25 06:00 Ondansetron Inj 4 Mg/2 Ml Vial IV PUSH Q4H PRN Nausea Pantoprazole Sodium 40 mg 03/27/25 09:00 03/27/25 11:16 Pantoprazole 40 Mg Tablet PO 40 mg QAM [facility] Administration Rosuvastatin Calcium 40 mg 03/27/25 09:00 03/27/25 11:15 Rosuvastatin 20 Mg Tablet PO 40 mg QAM [facility] Administration Radiology Results: ITS Impressions Chest X-Ray 03/27/25 06:19 IMPRESSION: 1. No acute cardiopulmonary findings. Chest/Abdomen/Pelvis CTA 03/27/25 07:27 IMPRESSION: 1. Aortic atherosclerosis. No aneurysm or dissection. 2. Moderate-sized sliding hiatal hernia. Labs Labs: Laboratory Results - last 24 hr 03/27/25 03/27/25 03/27/25 03:12 06:35 11:09 WBC RBC Hgb Hct MCV MCH MCHC RDW Plt Count MPV Immature Gran % (Auto) Neut % (Auto) Lymph % (Auto) [place] % (Auto) Eos % (Auto) Baso % (Auto) Lymph # (Auto) [place] # (Auto) Eos # (Auto) Baso # (Auto) Abs Immat Gran (auto) Absolute Neuts (auto) Absolute Nucleated RBC Nucleated RBC % APTT Sodium Potassium Chloride Carbon Dioxide Anion Gap BUN Creatinine Estim Creat Clear Calc Estimated GFR Glucose POC Capillary Glucose 142 H Hemoglobin A1c 6.7 H Calcium Phosphorus Magnesium Total Bilirubin AST ALT Alkaline Phosphatase Troponin I Total Protein Albumin Urine Color Urine Appearance Urine pH Ur Specific [place] Urine Protein Urine Glucose (UA) Urine Ketones Ur Blood (Man) Urine Nitrate Urine Bilirubin Urine Urobilinogen Add Ur Microanalysis Leukocyte Esterase Rfl Urine RBC Urine WBC Ur Squamous Epith Cells Urine Bacteria Urine Casts Nasal MRSA (PCR) Not detected 03/27/25 03/27/25 03/27/25 12:00 12:28 16:23 WBC RBC Hgb Hct MCV MCH MCHC RDW Plt Count MPV Immature Gran % (Auto) Neut % (Auto) Lymph % (Auto) [place] % (Auto) Eos % (Auto) Baso % (Auto) Lymph # (Auto) [place] # (Auto) Eos # (Auto) Baso # (Auto) Abs Immat Gran (auto) Absolute Neuts (auto) Absolute Nucleated RBC Nucleated RBC % APTT 133.2 H Sodium Potassium Chloride Carbon Dioxide Anion Gap BUN Creatinine Estim Creat Clear Calc Estimated GFR Glucose POC Capillary Glucose 122 H Hemoglobin A1c Calcium Phosphorus Magnesium Total Bilirubin AST ALT Alkaline Phosphatase Troponin I 21.600 H* D Total Protein Albumin Urine Color Yellow Urine Appearance Clear Urine pH 5.5 Ur Specific [place] > 1.045 H Urine Protein 1+ H Urine Glucose (UA) 3+ H Urine Ketones Negative Ur Blood (Man) 3+ H Urine Nitrate Negative Urine Bilirubin Negative Urine Urobilinogen 1.0 Add Ur Microanalysis Reviewed Leukocyte Esterase Rfl Negative Urine RBC 0-2 Urine WBC 21-50 H Ur Squamous Epith Cells None seen Urine Bacteria None seen Urine Casts 0-2 Nasal MRSA (PCR) 03/27/25 03/27/25 03/28/25 17:13 19:58 01:13 WBC RBC Hgb Hct MCV MCH MCHC RDW Plt Count MPV Immature Gran % (Auto) Neut % (Auto) Lymph % (Auto) [place] % (Auto) Eos % (Auto) Baso % (Auto) Lymph # (Auto) [place] # (Auto) Eos # (Auto) Baso # (Auto) Abs Immat Gran (auto) Absolute Neuts (auto) Absolute Nucleated RBC Nucleated RBC % APTT 44.0 H 84.8 H Sodium Potassium Chloride Carbon Dioxide Anion Gap BUN Creatinine Estim Creat Clear Calc Estimated GFR Glucose POC Capillary Glucose 123 H Hemoglobin A1c Calcium Phosphorus Magnesium Total Bilirubin AST ALT Alkaline Phosphatase Troponin I 31.900 H* D Total Protein Albumin Urine Color Urine Appearance Urine pH Ur Specific [place] Urine Protein Urine Glucose (UA) Urine Ketones Ur Blood (Man) Urine Nitrate Urine Bilirubin Urine Urobilinogen Add Ur Microanalysis Leukocyte Esterase Rfl Urine RBC Urine WBC Ur Squamous Epith Cells Urine Bacteria Urine Casts Nasal MRSA (PCR) 03/28/25 03/28/25 03:49 07:24 WBC 6.2 RBC 3.66 L Hgb 10.4 L Hct 33.0 L MCV 90.2 MCH 28.4 MCHC 31.5 L RDW 13.8 Plt Count 161 MPV 9.5 Immature Gran % (Auto) 0.2 Neut % (Auto) 49.8 Lymph % (Auto) 30.2 [place] % (Auto) 11.3 H Eos % (Auto) 7.7 H Baso % (Auto) 0.8 Lymph # (Auto) 1.88 [place] # (Auto) 0.7 H Eos # (Auto) 0.5 H Baso # (Auto) 0.1 Abs Immat Gran (auto) 0.01 Absolute Neuts (auto) 3.1 Absolute Nucleated RBC 0.000 Nucleated RBC % 0.0 APTT Sodium 135 L Potassium 4.2 Chloride 109 H Carbon Dioxide 22 Anion Gap 4 BUN 16 Creatinine 1.17 H Estim Creat Clear Calc 38 Estimated GFR 45 L Glucose 126 H POC Capillary Glucose 134 H Hemoglobin A1c Calcium 8.5 Phosphorus 4.3 Magnesium 2.1 Total Bilirubin 0.6 AST 103 H ALT 28 Alkaline Phosphatase 83 Troponin I 30.500 H* Total Protein 6.1 L Albumin 3.5 Urine Color Urine Appearance Urine pH Ur Specific [place] Urine Protein Urine Glucose (UA) Urine Ketones Ur Blood (Man) Urine Nitrate Urine Bilirubin Urine Urobilinogen Add Ur Microanalysis Leukocyte Esterase Rfl Urine RBC Urine WBC Ur Squamous Epith Cells Urine Bacteria Urine Casts Nasal MRSA (PCR) Quality VTE Prophylaxis VTE prophylaxis: pharmacologic ordered
[2025-03-28] MEDS: ROSUVASTATIN 20 MG TABLET 40 MG PO (08:15)
[2025-03-28 08:16] LABS: Partial Thromboplastin Time 67.8 Seconds (22.3-36.8)
[2025-03-28] MEDS: ASPIRIN 81 MG ENTERIC TABLET PO (08:16)
[2025-03-28] MEDS: EMPAGLIFLOZIN 10 MG TABLET PO (08:16)
[2025-03-28] MEDS: LOSARTAN POTASSIUM 25 MG TABLET PO (08:16)
[2025-03-28] MEDS: PANTOPRAZOLE 40 MG TABLET PO (08:16)
[2025-03-28 10:04] LABS: Hematocrit 35.5 % (37.0-47.0); Hemoglobin 11.2 g/dL (12.0-15.0); Mean Corpuscular HGB Conc 31.5 g/dl (32-36); Mean Corpuscular Hemoglobin 28.2 pg (26-34); Mean Corpuscular Volume 89.4 fl (80-100); Platelet Count Result 169 k/mm3 (150-375); Red Blood Count 3.97 M/mm3 (4.2-5.4); White Blood Count 6.6 K/mm3 (4.5-10.0)
--- NOTE | 2025-03-28 10:09 | PM.PNCARD ---
Progress Note: A&P Assessment and Plan (1) Non-ST elevation NH (NSTEMI): Code(s): I21.4 - Non-ST elevation (NSTEMI) myocardial infarction Status: Acute Assessment and Plan: This is [place]. Troponin peaked at high level 31. EKG shows some developing Q waves inferolateral leads. No ST segment deviations. LHC with Dr. Bourgeois shows no obstructive coronaries. Echo shows EF 60-65%, mod LVH, grade I diastolic dysfunction, possible bicuspid aortic valve, mod (1.5 cm2), Continue aspirin, Rosuvastatin, Atenolol, Losartan. Start Clopidogrel 75 mg daily. Monitor for right groin bleeding from cath access site. (2) Chest pain: Code(s): R07.9 - Chest pain, unspecified Status: Acute Assessment and Plan: Improving. (3) Mixed hyperlipidemia: Code(s): E78.2 - Mixed hyperlipidemia Status: Acute Assessment and Plan: On Rosuvastatin. (4) Benign essential hypertension: Code(s): I10 - Essential (primary) hypertension Status: Acute Assessment and Plan: Resume home medication of Atenolol and Losartan, and she is on Jardiance. (5) Aortic stenosis: Code(s): I35.0 - Nonrheumatic aortic (valve) stenosis Status: Acute Assessment and Plan: Moderate. Subjective Date/time seen: 03/28/25 10:09 Interval history: Reports chest pain down to 2/10 today off NTG drip. No sob. Exam Const: General: cooperative, healthy appearing and comfortable Orientation/consciousness: oriented to person, oriented to place and oriented to time Resp: Auscultation: clear to auscultation bilaterally, no crackles, no rales, no rhonchi and no wheezes Cardio: Rate: regular rate Rhythm: regular rhythm Heart sounds: Murmur heart sound present (IV/ systolic murmur RICS) Peripheral pulses: dorsalis pedis present Neuro: General: oriented to person, oriented to place and oriented to time Extrem: Right lower extremity: no edema Left lower extremity: no edema Objective Data Vital Signs Vital Signs: Vital Signs - 24 hr 03/27/25 10:14 03/27/25 11:00 03/27/25 11:14 Temperature Pulse Rate 86 99 88 Pulse Rate [Bilateral Pedal (Dorsalis Pedis) Palpation] 86 88 Pulse Rate [Monitor] 86 88 Respiratory Rate 15 20 20 Blood Pressure 142/77 H 127/77 125/94 H Pulse Oximetry 95 94 94 Oxygen Delivery Oxygen Flow Rate Fraction of Inspired Oxygen 03/27/25 11:15 03/27/25 12:00 03/27/25 12:00 Temperature 98.1 F Pulse Rate 96 88 84 Pulse Rate [Bilateral Pedal (Dorsalis Pedis) Palpation] Pulse Rate [Monitor] Respiratory Rate 15 Blood Pressure 149/69 H 149/69 H Pulse Oximetry 94 Oxygen Delivery Oxygen Flow Rate Fraction of Inspired Oxygen 03/27/25 12:00 03/27/25 12:00 03/27/25 12:14 Temperature Pulse Rate 86 82 Pulse Rate [Bilateral Pedal (Dorsalis Pedis) Palpation] 82 Pulse Rate [Monitor] 82 Respiratory Rate 16 Blood Pressure 149/69 H Pulse Oximetry 91 94 Oxygen Delivery Room Air Oxygen Flow Rate Fraction of Inspired Oxygen 03/27/25 12:15 03/27/25 13:00 03/27/25 14:00 Temperature Pulse Rate 90 73 67 Pulse Rate [Bilateral Pedal (Dorsalis Pedis) Palpation] Pulse Rate [Monitor] Respiratory Rate 20 Blood Pressure 149/69 H 116/56 L Pulse Oximetry 91 Oxygen Delivery Oxygen Flow Rate Fraction of Inspired Oxygen 03/27/25 14:00 03/27/25 14:00 03/27/25 14:14 Temperature Pulse Rate 77 58 L 64 Pulse Rate [Bilateral Pedal (Dorsalis Pedis) Palpation] 64 Pulse Rate [Monitor] 64 Respiratory Rate 18 19 Blood Pressure 111/54 L 111/54 L 122/51 L Pulse Oximetry 95 93 Oxygen Delivery Oxygen Flow Rate Fraction of Inspired Oxygen 03/27/25 15:00 03/27/25 16:00 03/27/25 16:00 Temperature Pulse Rate 58 L 65 65 Pulse Rate [Bilateral Pedal (Dorsalis Pedis) Palpation] Pulse Rate [Monitor] Respiratory Rate 18 16 Blood Pressure 120/54 L 124/54 L Pulse Oximetry 93 89 L Oxygen Delivery Oxygen Flow Rate Fraction of Inspired Oxygen 03/27/25 16:00 03/27/25 16:00 03/27/25 17:00 Temperature Pulse Rate 61 79 72 Pulse Rate [Bilateral Pedal (Dorsalis Pedis) Palpation] Pulse Rate [Monitor] Respiratory Rate 20 Blood Pressure 121/61 122/59 L Pulse Oximetry 94 94 Oxygen Delivery Room Air Oxygen Flow Rate Fraction of Inspired Oxygen 03/27/25 18:00 03/27/25 18:00 03/27/25 18:00 Temperature Pulse Rate 65 66 76 Pulse Rate [Bilateral Pedal (Dorsalis Pedis) Palpation] Pulse Rate [Monitor] Respiratory Rate 17 Blood Pressure 121/55 L 124/63 Pulse Oximetry 93 Oxygen Delivery Oxygen Flow Rate Fraction of Inspired Oxygen 03/27/25 18:55 03/27/25 19:00 03/27/25 20:00 Temperature 98.3 F Pulse Rate 80 78 67 Pulse Rate [Bilateral Pedal (Dorsalis Pedis) Palpation] Pulse Rate [Monitor] Respiratory Rate 18 17 Blood Pressure 106/56 L 122/62 133/88 Pulse Oximetry 94 92 Oxygen Delivery Oxygen Flow Rate Fraction of Inspired Oxygen 03/27/25 20:00 03/27/25 20:00 03/27/25 20:00 Temperature Pulse Rate 67 67 Pulse Rate [Bilateral Pedal (Dorsalis Pedis) Palpation] Pulse Rate [Monitor] Respiratory Rate Blood Pressure 133/88 Pulse Oximetry 92 Oxygen Delivery Room Air Oxygen Flow Rate Fraction of Inspired Oxygen 03/27/25 20:24 03/27/25 20:41 03/27/25 21:00 Temperature Pulse Rate 63 63 Pulse Rate [Bilateral Pedal (Dorsalis Pedis) Palpation] Pulse Rate [Monitor] Respiratory Rate 20 17 Blood Pressure 127/63 Pulse Oximetry 94 87 L 96 Oxygen Delivery Room Air Nasal Cannula Oxygen Flow Rate 2 Fraction of Inspired Oxygen 21 03/27/25 22:00 03/27/25 22:00 03/27/25 22:00 Temperature Pulse Rate 65 65 65 Pulse Rate [Bilateral Pedal (Dorsalis Pedis) Palpation] Pulse Rate [Monitor] Respiratory Rate 17 Blood Pressure 133/66 133/66 Pulse Oximetry 96 Oxygen Delivery Oxygen Flow Rate Fraction of Inspired Oxygen 03/27/25 23:00 03/27/25 23:00 03/27/25 23:26 Temperature Pulse Rate 64 65 71 Pulse Rate [Bilateral Pedal (Dorsalis Pedis) Palpation] Pulse Rate [Monitor] Respiratory Rate 17 Blood Pressure 130/59 L 130/59 L 137/58 L Pulse Oximetry 97 Oxygen Delivery Oxygen Flow Rate Fraction of Inspired Oxygen 03/28/25 00:00 03/28/25 00:00 03/28/25 00:00 Temperature 98.2 F Pulse Rate 62 62 62 Pulse Rate [Bilateral Pedal (Dorsalis Pedis) Palpation] Pulse Rate [Monitor] Respiratory Rate 16 Blood Pressure 126/54 L 126/54 L Pulse Oximetry 97 Oxygen Delivery Oxygen Flow Rate Fraction of Inspired Oxygen 03/28/25 00:00 03/28/25 01:00 03/28/25 02:00 Temperature Pulse Rate 72 71 Pulse Rate [Bilateral Pedal (Dorsalis Pedis) Palpation] Pulse Rate [Monitor] Respiratory Rate 18 Blood Pressure 121/64 Pulse Oximetry 97 98 Oxygen Delivery Nasal Cannula Oxygen Flow Rate 1 Fraction of Inspired Oxygen 03/28/25 02:00 03/28/25 02:00 03/28/25 03:00 Temperature Pulse Rate 71 71 66 Pulse Rate [Bilateral Pedal (Dorsalis Pedis) Palpation] Pulse Rate [Monitor] Respiratory Rate 18 17 Blood Pressure 133/53 L 133/53 L 116/56 L Pulse Oximetry 96 96 Oxygen Delivery Oxygen Flow Rate Fraction of Inspired Oxygen 03/28/25 04:00 03/28/25 04:00 03/28/25 04:00 Temperature 98.0 F Pulse Rate 74 74 74 Pulse Rate [Bilateral Pedal (Dorsalis Pedis) Palpation] Pulse Rate [Monitor] Respiratory Rate 20 Blood Pressure 129/72 129/72 Pulse Oximetry 93 Oxygen Delivery Oxygen Flow Rate Fraction of Inspired Oxygen 03/28/25 04:00 03/28/25 04:15 03/28/25 05:00 Temperature Pulse Rate 74 72 Pulse Rate [Bilateral Pedal (Dorsalis Pedis) Palpation] Pulse Rate [Monitor] Respiratory Rate 19 Blood Pressure 156/67 H 154/68 H Pulse Oximetry 93 96 Oxygen Delivery Nasal Cannula Oxygen Flow Rate 1 Fraction of Inspired Oxygen 03/28/25 06:00 03/28/25 06:00 03/28/25 06:00 Temperature Pulse Rate 77 77 77 Pulse Rate [Bilateral Pedal (Dorsalis Pedis) Palpation] Pulse Rate [Monitor] Respiratory Rate 19 Blood Pressure 157/70 H 157/70 H Pulse Oximetry 97 Oxygen Delivery Oxygen Flow Rate Fraction of Inspired Oxygen 03/28/25 07:00 03/28/25 07:00 03/28/25 07:40 Temperature Pulse Rate 83 83 78 Pulse Rate [Bilateral Pedal (Dorsalis Pedis) Palpation] Pulse Rate [Monitor] Respiratory Rate 21 H Blood Pressure 149/75 H 149/75 H 112/83 Pulse Oximetry 92 Oxygen Delivery Oxygen Flow Rate Fraction of Inspired Oxygen 03/28/25 08:00 03/28/25 08:00 03/28/25 08:02 Temperature 98.3 F Pulse Rate 78 69 71 Pulse Rate [Bilateral Pedal (Dorsalis Pedis) Palpation] Pulse Rate [Monitor] Respiratory Rate 18 18 Blood Pressure 161/70 H Pulse Oximetry 95 95 Oxygen Delivery Room Air Oxygen Flow Rate Fraction of Inspired Oxygen 03/28/25 08:16 03/28/25 09:00 Temperature Pulse Rate 78 68 Pulse Rate [Bilateral Pedal (Dorsalis Pedis) Palpation] Pulse Rate [Monitor] Respiratory Rate 16 Blood Pressure 169/51 H Pulse Oximetry 95 Oxygen Delivery Oxygen Flow Rate Fraction of Inspired Oxygen Intake/Output Intake/Output: Intake & Output 03/25/25 03/26/25 03/27/25 03/28/25 23:59 23:59 23:59 23:59 Intake Total 1216.9 613.9 Output Total 900 1150 Balance 316.9 -536.1 Meds/Results Medications: Active Medications Generic Name Dose Route Start Last Admin Trade Name Freq PRN Reason Stop Dose Admin Acetaminophen 650 mg 03/27/25 06:00 03/27/25 18:47 Acetaminophen 325 Mg Tablet PO 650 mg Q4H PRN Administration Mild Pain (1-3) or Fever Aspirin 81 mg 03/27/25 09:00 03/28/25 08:16 Aspirin 81 Mg Enteric Tablet PO 81 mg QAM MAKENNA Administration Atenolol 50 mg 03/27/25 09:00 03/28/25 08:16 Atenolol 50 Mg Tablet PO 50 mg DAILY MAKENNA Administration Dextrose 12.5 gm 03/27/25 08:34 Dextrose 50% 25 Gm/50 Ml Syringe IV PUSH PRN PRN Hypoglycemia Protocol Empagliflozin 10 mg 03/27/25 09:00 03/28/25 08:16 Empagliflozin 10 Mg Tablet PO 10 mg DAILY MAKENNA Administration Glucagon 1 mg 03/27/25 08:34 Glucagon For Inj 1 Mg Vial IM PRN PRN Hypoglycemia Protocol Glucose 15 gm 03/27/25 08:34 Glucose Oral Gel 15 Gm Of Glucse In 37.5 Gm Tube PO PRN PRN Hypoglycemia Protocol Hydralazine HCl 20 mg 03/27/25 10:06 Hydralazine Hcl 20 Mg/Ml Vial IV PUSH Q4H PRN SBP more than 160 Dextrose 1,000 mls @ 100 mls/hr 03/27/25 08:34 Dextrose 5% 1,000 Ml IVPB PRN PRN Hypoglycemia Protocol Insulin Aspart 3 - 6 units 03/27/25 08:00 03/28/25 08:16 Insulin Aspart (*Bkc) 100 Units/Ml SUB-Q Not Given TIDWM MAKENNA Protocol Insulin Aspart 1 - 3 units 03/27/25 21:00 03/27/25 20:05 Insulin Aspart (*Bkc) 100 Units/Ml SUB-Q Not Given HS MAKENNA Protocol Labetalol HCl 20 mg 03/27/25 10:06 Labetalol Hcl Inj 100 Mg/20 Ml Vial IV PUSH Q4H PRN SBP > 160 and HR> 60 -1st choice Losartan Potassium 25 mg 03/27/25 09:00 03/28/25 08:16 Losartan Potassium 25 Mg Tablet PO 25 mg DAILY MAKENNA Administration Nitroglycerin 0.4 mg 03/27/25 04:12 03/27/25 04:19 Nitroglycerin Sl 0.4 Mg Tablet SUBLINGUAL 0.4 mg ONCE PRN Administration Pain Rated 6 or Greater Ondansetron HCl 4 mg 03/27/25 06:00 Ondansetron Inj 4 Mg/2 Ml Vial IV PUSH Q4H PRN Nausea Pantoprazole Sodium 40 mg 03/27/25 09:00 03/28/25 08:16 Pantoprazole 40 Mg Tablet PO 40 mg QAM MAKENNA Administration Rosuvastatin Calcium 40 mg 03/27/25 09:00 03/28/25 08:15 Rosuvastatin 20 Mg Tablet PO 40 mg QAM MAKENNA Administration Radiology Results: ITS Impressions Chest X-Ray 03/27/25 06:19 IMPRESSION: 1. No acute cardiopulmonary findings. Chest/Abdomen/Pelvis CTA 03/27/25 07:27 IMPRESSION: 1. Aortic atherosclerosis. No aneurysm or dissection. 2. Moderate-sized sliding hiatal hernia. Labs Labs: Laboratory Results - last 24 hr 03/27/25 03/27/25 03/27/25 11:09 12:00 12:28 WBC RBC Hgb Hct MCV MCH MCHC RDW Plt Count MPV Immature Gran % (Auto) Neut % (Auto) Lymph % (Auto) Bath % (Auto) Eos % (Auto) Baso % (Auto) Lymph # (Auto) Bath # (Auto) Eos # (Auto) Baso # (Auto) Abs Immat Gran (auto) Absolute Neuts (auto) Absolute Nucleated RBC Nucleated RBC % APTT 133.2 H Sodium Potassium Chloride Carbon Dioxide Anion Gap BUN Creatinine Estim Creat Clear Calc Estimated GFR Glucose POC Capillary Glucose 142 H Calcium Phosphorus Magnesium Total Bilirubin AST ALT Alkaline Phosphatase Troponin I 21.600 H* D Total Protein Albumin Urine Color Yellow Urine Appearance Clear Urine pH 5.5 Ur Specific [place] > 1.045 H Urine Protein 1+ H Urine Glucose (UA) 3+ H Urine Ketones Negative Ur Blood (Man) 3+ H Urine Nitrate Negative Urine Bilirubin Negative Urine Urobilinogen 1.0 Add Ur Microanalysis Reviewed Leukocyte Esterase Rfl Negative Urine RBC 0-2 Urine WBC 21-50 H Ur Squamous Epith Cells None seen Urine Bacteria None seen Urine Casts 0-2 03/27/25 03/27/25 03/27/25 16:23 17:13 19:58 WBC RBC Hgb Hct MCV MCH MCHC RDW Plt Count MPV Immature Gran % (Auto) Neut % (Auto) Lymph % (Auto) [place] % (Auto) Eos % (Auto) Baso % (Auto) Lymph # (Auto) Bath # (Auto) Eos # (Auto) Baso # (Auto) Abs Immat Gran (auto) Absolute Neuts (auto) Absolute Nucleated RBC Nucleated RBC % APTT 44.0 H Sodium Potassium Chloride Carbon Dioxide Anion Gap BUN Creatinine Estim Creat Clear Calc Estimated GFR Glucose POC Capillary Glucose 122 H 123 H Calcium Phosphorus Magnesium Total Bilirubin AST ALT Alkaline Phosphatase Troponin I 31.900 H* D Total Protein Albumin Urine Color Urine Appearance Urine pH Ur Specific [place] Urine Protein Urine Glucose (UA) Urine Ketones Ur Blood (Man) Urine Nitrate Urine Bilirubin Urine Urobilinogen Add Ur Microanalysis Leukocyte Esterase Rfl Urine RBC Urine WBC Ur Squamous Epith Cells Urine Bacteria Urine Casts 03/28/25 03/28/25 03/28/25 01:13 03:49 07:24 WBC 6.2 RBC 3.66 L Hgb 10.4 L Hct 33.0 L MCV 90.2 MCH 28.4 MCHC 31.5 L RDW 13.8 Plt Count 161 MPV 9.5 Immature Gran % (Auto) 0.2 Neut % (Auto) 49.8 Lymph % (Auto) 30.2 Bath % (Auto) 11.3 H Eos % (Auto) 7.7 H Baso % (Auto) 0.8 Lymph # (Auto) 1.88 Bath # (Auto) 0.7 H Eos # (Auto) 0.5 H Baso # (Auto) 0.1 Abs Immat Gran (auto) 0.01 Absolute Neuts (auto) 3.1 Absolute Nucleated RBC 0.000 Nucleated RBC % 0.0 APTT 84.8 H Sodium 135 L Potassium 4.2 Chloride 109 H Carbon Dioxide 22 Anion Gap 4 BUN 16 Creatinine 1.17 H Estim Creat Clear Calc 38 Estimated GFR 45 L Glucose 126 H POC Capillary Glucose 134 H Calcium 8.5 Phosphorus 4.3 Magnesium 2.1 Total Bilirubin 0.6 AST 103 H ALT 28 Alkaline Phosphatase 83 Troponin I 30.500 H* Total Protein 6.1 L Albumin 3.5 Urine Color Urine Appearance Urine pH Ur Specific [place] Urine Protein Urine Glucose (UA) Urine Ketones Ur Blood (Man) Urine Nitrate Urine Bilirubin Urine Urobilinogen Add Ur Microanalysis Leukocyte Esterase Rfl Urine RBC Urine WBC Ur Squamous Epith Cells Urine Bacteria Urine Casts 03/28/25 03/28/25 07:50 09:59 WBC 6.6 RBC 3.97 L Hgb 11.2 L Hct 35.5 L MCV 89.4 MCH 28.2 MCHC 31.5 L RDW 13.8 Plt Count 169 MPV 9.5 Immature Gran % (Auto) Neut % (Auto) Lymph % (Auto) Bath % (Auto) Eos % (Auto) Baso % (Auto) Lymph # (Auto) [place] # (Auto) Eos # (Auto) Baso # (Auto) Abs Immat Gran (auto) Absolute Neuts (auto) Absolute Nucleated RBC Nucleated RBC % APTT 67.8 H Sodium Potassium Chloride Carbon Dioxide Anion Gap BUN Creatinine Estim Creat Clear Calc Estimated GFR Glucose POC Capillary Glucose Calcium Phosphorus Magnesium Total Bilirubin AST ALT Alkaline Phosphatase Troponin I Total Protein Albumin Urine Color Urine Appearance Urine pH Ur Specific [place] Urine Protein Urine Glucose (UA) Urine Ketones Ur Blood (Man) Urine Nitrate Urine Bilirubin Urine Urobilinogen Add Ur Microanalysis Leukocyte Esterase Rfl Urine RBC Urine WBC Ur Squamous Epith Cells Urine Bacteria Urine Casts
--- NOTE | 2025-03-28 14:25 | P.PNIM_ITS ---
Progress Note: A&P Assessment and Plan (1) Non-ST elevation [place] (NSTEMI): Code(s): I21.4 - Non-ST elevation (NSTEMI) myocardial infarction Status: Acute (2) Hypertension: Qualifiers: Hypertension type: primary hypertension Qualified Code(s): I10 - Essential (primary) hypertension Code(s): I10 - Essential (primary) hypertension Status: Acute Plan A pleasant 74-year-old female with history of obesity class 2, diabetes mellitus without current long-term use of insulin with chronic kidney disease, diastolic heart failure, aortic stenosis, hypertension, dyslipidemia, anxiety presents to [facility] ER on 03/27/2025 in the ER in the morning complaining of chest pain. She is a regular patient of Dr. Brandyn Thomas. Patient reports at midnight she was going to the restroom and she had sudden onset of mid substernal chest pain which was heavy but also as if someone were gripping sharp nails into her chest which radiated to her back and both arms. Her sister drove her to the ER. Her troponin was elevated his severe chest pain 04/02 taken to the slabbing machine operator by Dr. Bourgeois interventional cardiology. ----- Left heart catheterization and coronary angiogram performed on 03/27/2025: Findings:: Left main normal Lad normal vessel with no obstructive disease. Left circumflex gives rise to OM branches with no obstructive disease RCA dominant vessel no obstructive disease ----- -Deemed to be MINOCA. After heart catheterization troponin elevated again, heparin GTT started. Peaked at 31.9, heparin GTT discontinued on morning of 03/28/2025, patient had bruising around the cardiac catheterization site. Stable/improving after discontinuation. Hold anticoagulation, monitor hemoglobin q.6 hours. Nitroglycerin GTT discontinue. Patient's chest pain is nearly resolved. Continue to appreciate Cardiology recommendations. -Pending echocardiogram. -Continue atenolol 50 mg p.o. q.day, aspirin 81 mg p.o. q.day, rosuvastatin 40 mg p.o. q.day. losartan 25 mg p.o. q.day -status post ibuprofen 400 mg p.o. q.6 hours x3 on 03/27/2025. Diabetes mellitus without current long-term use of insulin: Accu-Cheks a.c. HS., continue Jardiance Chronic kidney disease: Baseline serum creatinine between 1.1 and 1.5. Serum creatinine 1.2 on admission. Continue to monitor after contrast exposure with coronary angiogram, received fluids afterwards. Diastolic heart failure: On Jardiance and atenolol at home, no diuretics. Monitor volume status. GERD: New [employer] Protonix. Continue [employer] citalopram 40 mg p.o. q.h.s. when QTC is acceptable. Discontinue Zofran. ----- Modified code. Okay for intubation, no CPR. SCDs only. Continue [employer] PPI Prior to admission patient living with her sister Isabel. Independent at baseline. Transfer from ICU to IMU on 03/28/2025 Time Spent With Patient Time with patient: Greater than 35 minutes Subjective Date/time seen: 03/28/25 14:25 Interval history: Patient has bruising on the subcutaneous tissue at previous catheter insertion site at the right femoral. It has not worsened over the morning after heparin GTT was stopped. Patient denies shortness of breath. She thinks her chest pain is almost completely resolved. Review of Systems Review of Systems: All systems reviewed & are unremarkable except as noted in HPI and below (Subjective) Exam Const: General: comfortable and no acute distress Other: A&O x3 HENMT: Mouth: Yes moist mucous membranes Eyes: Pupils: Equal, round and reactive pupils present Neck: Neck: supple Resp: Effort & Inspection: normal respiratory effort Auscultation: clear to auscultation bilaterally Cardio: Rate: regular rate Rhythm: regular rhythm Heart sounds: Murmur heart sound present GI: Inspection: non-distended GI Palp: Yes Soft to palpation and No Tenderness to palpation present (GI) Neuro: Motor exam (neuro): 5/5 motor strength present throughout Extrem: General: no edema Other: Ecchymosis scattered in the right inguinal area and soft tissue of the pubis. Has not extended beyond the surgical marking borders from the morning. No hemat jocelyn, no ulcer, no erythema, no pain on palpation. Objective Data Vital Signs Vital Signs: Vital Signs - 24 hr 03/27/25 15:00 03/27/25 16:00 03/27/25 16:00 Temperature Pulse Rate 58 L 65 65 Respiratory Rate 18 16 Blood Pressure 120/54 L 124/54 L Pulse Oximetry 93 89 L Oxygen Delivery Oxygen Flow Rate Fraction of Inspired Oxygen 03/27/25 16:00 03/27/25 16:00 03/27/25 17:00 Temperature Pulse Rate 61 79 72 Respiratory Rate 20 Blood Pressure 121/61 122/59 L Pulse Oximetry 94 94 Oxygen Delivery Room Air Oxygen Flow Rate Fraction of Inspired Oxygen 03/27/25 18:00 03/27/25 18:00 03/27/25 18:00 Temperature Pulse Rate 65 66 76 Respiratory Rate 17 Blood Pressure 121/55 L 124/63 Pulse Oximetry 93 Oxygen Delivery Oxygen Flow Rate Fraction of Inspired Oxygen 03/27/25 18:55 03/27/25 19:00 03/27/25 20:00 Temperature 98.3 F Pulse Rate 80 78 67 Respiratory Rate 18 17 Blood Pressure 106/56 L 122/62 133/88 Pulse Oximetry 94 92 Oxygen Delivery Oxygen Flow Rate Fraction of Inspired Oxygen 03/27/25 20:00 03/27/25 20:00 03/27/25 20:00 Temperature Pulse Rate 67 67 Respiratory Rate Blood Pressure 133/88 Pulse Oximetry 92 Oxygen Delivery Room Air Oxygen Flow Rate Fraction of Inspired Oxygen 03/27/25 20:24 03/27/25 20:41 03/27/25 21:00 Temperature Pulse Rate 63 63 Respiratory Rate 20 17 Blood Pressure 127/63 Pulse Oximetry 94 87 L 96 Oxygen Delivery Room Air Nasal Cannula Oxygen Flow Rate 2 Fraction of Inspired Oxygen 21 03/27/25 22:00 03/27/25 22:00 03/27/25 22:00 Temperature Pulse Rate 65 65 65 Respiratory Rate 17 Blood Pressure 133/66 133/66 Pulse Oximetry 96 Oxygen Delivery Oxygen Flow Rate Fraction of Inspired Oxygen 03/27/25 23:00 03/27/25 23:00 03/27/25 23:26 Temperature Pulse Rate 64 65 71 Respiratory Rate 17 Blood Pressure 130/59 L 130/59 L 137/58 L Pulse Oximetry 97 Oxygen Delivery Oxygen Flow Rate Fraction of Inspired Oxygen 03/28/25 00:00 03/28/25 00:00 03/28/25 00:00 Temperature 98.2 F Pulse Rate 62 62 62 Respiratory Rate 16 Blood Pressure 126/54 L 126/54 L Pulse Oximetry 97 Oxygen Delivery Oxygen Flow Rate Fraction of Inspired Oxygen 03/28/25 00:00 03/28/25 01:00 03/28/25 02:00 Temperature Pulse Rate 72 71 Respiratory Rate 18 Blood Pressure 121/64 Pulse Oximetry 97 98 Oxygen Delivery Nasal Cannula Oxygen Flow Rate 1 Fraction of Inspired Oxygen 03/28/25 02:00 03/28/25 02:00 03/28/25 03:00 Temperature Pulse Rate 71 71 66 Respiratory Rate 18 17 Blood Pressure 133/53 L 133/53 L 116/56 L Pulse Oximetry 96 96 Oxygen Delivery Oxygen Flow Rate Fraction of Inspired Oxygen 03/28/25 04:00 03/28/25 04:00 03/28/25 04:00 Temperature 98.0 F Pulse Rate 74 74 74 Respiratory Rate 20 Blood Pressure 129/72 129/72 Pulse Oximetry 93 Oxygen Delivery Oxygen Flow Rate Fraction of Inspired Oxygen 03/28/25 04:00 03/28/25 04:15 03/28/25 05:00 Temperature Pulse Rate 74 72 Respiratory Rate 19 Blood Pressure 156/67 H 154/68 H Pulse Oximetry 93 96 Oxygen Delivery Nasal Cannula Oxygen Flow Rate 1 Fraction of Inspired Oxygen 03/28/25 06:00 03/28/25 06:00 03/28/25 06:00 Temperature Pulse Rate 77 77 77 Respiratory Rate 19 Blood Pressure 157/70 H 157/70 H Pulse Oximetry 97 Oxygen Delivery Oxygen Flow Rate Fraction of Inspired Oxygen 03/28/25 07:00 03/28/25 07:00 03/28/25 07:40 Temperature Pulse Rate 83 83 78 Respiratory Rate 21 H Blood Pressure 149/75 H 149/75 H 112/83 Pulse Oximetry 92 Oxygen Delivery Oxygen Flow Rate Fraction of Inspired Oxygen 03/28/25 08:00 03/28/25 08:00 03/28/25 08:02 Temperature 98.3 F Pulse Rate 78 69 71 Respiratory Rate 18 18 Blood Pressure 161/70 H Pulse Oximetry 95 95 Oxygen Delivery Room Air Oxygen Flow Rate Fraction of Inspired Oxygen 03/28/25 08:16 03/28/25 09:00 03/28/25 10:00 Temperature Pulse Rate 78 68 62 Respiratory Rate 16 Blood Pressure 169/51 H Pulse Oximetry 95 Oxygen Delivery Oxygen Flow Rate Fraction of Inspired Oxygen 03/28/25 10:01 03/28/25 11:33 03/28/25 11:51 Temperature 98.7 F Pulse Rate 59 L 65 65 Respiratory Rate 19 13 13 Blood Pressure 128/76 160/58 H Pulse Oximetry 99 97 97 Oxygen Delivery Room Air Oxygen Flow Rate Fraction of Inspired Oxygen 03/28/25 12:00 Temperature Pulse Rate 65 Respiratory Rate Blood Pressure Pulse Oximetry Oxygen Delivery Oxygen Flow Rate Fraction of Inspired Oxygen Intake/Output Intake/Output: Intake & Output 03/25/25 03/26/25 03/27/25 03/28/25 23:59 23:59 23:59 23:59 Intake Total 1216.9 1093.9 Output Total 900 1150 Balance 316.9 -56.1 Meds/Results Medications: Active Medications Generic Name Dose Route Start Last Admin Trade Name Freq PRN Reason Stop Dose Admin Acetaminophen 650 mg 03/27/25 06:00 03/27/25 18:47 Acetaminophen 325 Mg Tablet PO 650 mg Q4H PRN Administration Mild Pain (1-3) or Fever Aspirin 81 mg 03/27/25 09:00 03/28/25 08:16 Aspirin 81 Mg Enteric Tablet PO 81 mg QAM [facility] Administration Atenolol 50 mg 03/27/25 09:00 03/28/25 08:16 Atenolol 50 Mg Tablet PO 50 mg DAILY MAKENNA Administration Clopidogrel Bisulfate 75 mg 03/29/25 09:00 Clopidogrel Bisulfate 75 Mg Tablet PO QAM [facility] Dextrose 12.5 gm 03/27/25 08:34 Dextrose 50% 25 Gm/50 Ml Syringe IV PUSH PRN PRN Hypoglycemia Protocol Empagliflozin 10 mg 03/27/25 09:00 03/28/25 08:16 Empagliflozin 10 Mg Tablet PO 10 mg DAILY MAKENNA Administration Glucagon 1 mg 03/27/25 08:34 Glucagon For Inj 1 Mg Vial IM PRN PRN Hypoglycemia Protocol Glucose 15 gm 03/27/25 08:34 Glucose Oral Gel 15 Gm Of Glucse In 37.5 Gm Tube PO PRN PRN Hypoglycemia Protocol Hydralazine HCl 20 mg 03/27/25 10:06 Hydralazine Hcl 20 Mg/Ml Vial IV PUSH Q4H PRN SBP more than 160 Dextrose 1,000 mls @ 100 mls/hr 03/27/25 08:34 Dextrose 5% 1,000 Ml IVPB PRN PRN Hypoglycemia Protocol Insulin Aspart 3 - 6 units 03/27/25 08:00 03/28/25 11:47 Insulin Aspart (*Bkc) 100 Units/Ml SUB-Q Not Given TID[facility] Protocol Insulin Aspart 1 - 3 units 03/27/25 21:00 03/27/25 20:05 Insulin Aspart (*Bkc) 100 Units/Ml SUB-Q Not Given HS MAKENNA Protocol Labetalol HCl 20 mg 03/27/25 10:06 Labetalol Hcl Inj 100 Mg/20 Ml Vial IV PUSH Q4H PRN SBP > 160 and HR> 60 -1st choice Losartan Potassium 25 mg 03/27/25 09:00 03/28/25 08:16 Losartan Potassium 25 Mg Tablet PO 25 mg DAILY MAKENNA Administration Nitroglycerin 0.4 mg 03/27/25 04:12 03/27/25 04:19 Nitroglycerin Sl 0.4 Mg Tablet SUBLINGUAL 0.4 mg ONCE PRN Administration Pain Rated 6 or Greater Ondansetron HCl 4 mg 03/27/25 06:00 Ondansetron Inj 4 Mg/2 Ml Vial IV PUSH Q4H PRN Nausea Pantoprazole Sodium 40 mg 03/27/25 09:00 03/28/25 08:16 Pantoprazole 40 Mg Tablet PO 40 mg QAM MAKEN[facility] Administration Rosuvastatin Calcium 40 mg 03/27/25 09:00 03/28/25 08:15 Rosuvastatin 20 Mg Tablet PO 40 mg QAM MAKENNA Administration Radiology Results: ITS Impressions Chest X-Ray 03/27/25 06:19 IMPRESSION: 1. No acute cardiopulmonary findings. Chest/Abdomen/Pelvis CTA 03/27/25 07:27 IMPRESSION: 1. Aortic atherosclerosis. No aneurysm or dissection. 2. Moderate-sized sliding hiatal hernia. Labs Labs: Laboratory Results - last 24 hr 03/27/25 03/27/25 03/27/25 16:23 17:13 19:58 WBC RBC Hgb Hct MCV MCH MCHC RDW Plt Count MPV Immature Gran % (Auto) Neut % (Auto) Lymph % (Auto) [place] % (Auto) Eos % (Auto) Baso % (Auto) Lymph # (Auto) [place] # (Auto) Eos # (Auto) Baso # (Auto) Abs Immat Gran (auto) Absolute Neuts (auto) Absolute Nucleated RBC Nucleated RBC % APTT 44.0 H Sodium Potassium Chloride Carbon Dioxide Anion Gap BUN Creatinine Estim Creat Clear Calc Estimated GFR Glucose POC Capillary Glucose 122 H 123 H Calcium Phosphorus Magnesium Total Bilirubin AST ALT Alkaline Phosphatase Troponin I 31.900 H* D Total Protein Albumin 03/28/25 03/28/25 03/28/25 01:13 03:49 07:24 WBC 6.2 RBC 3.66 L Hgb 10.4 L Hct 33.0 L MCV 90.2 MCH 28.4 MCHC 31.5 L RDW 13.8 Plt Count 161 MPV 9.5 Immature Gran % (Auto) 0.2 Neut % (Auto) 49.8 Lymph % (Auto) 30.2 [place] % (Auto) 11.3 H Eos % (Auto) 7.7 H Baso % (Auto) 0.8 Lymph # (Auto) 1.88 [place] # (Auto) 0.7 H Eos # (Auto) 0.5 H Baso # (Auto) 0.1 Abs Immat Gran (auto) 0.01 Absolute Neuts (auto) 3.1 Absolute Nucleated RBC 0.000 Nucleated RBC % 0.0 APTT 84.8 H Sodium 135 L Potassium 4.2 Chloride 109 H Carbon Dioxide 22 Anion Gap 4 BUN 16 Creatinine 1.17 H Estim Creat Clear Calc 38 Estimated GFR 45 L Glucose 126 H POC Capillary Glucose 134 H Calcium 8.5 Phosphorus 4.3 Magnesium 2.1 Total Bilirubin 0.6 AST 103 H ALT 28 Alkaline Phosphatase 83 Troponin I 30.500 H* Total Protein 6.1 L Albumin 3.5 03/28/25 03/28/25 03/28/25 07:50 09:59 11:31 WBC 6.6 RBC 3.97 L Hgb 11.2 L Hct 35.5 L MCV 89.4 MCH 28.2 MCHC 31.5 L RDW 13.8 Plt Count 169 MPV 9.5 Immature Gran % (Auto) Neut % (Auto) Lymph % (Auto) [place] % (Auto) Eos % (Auto) Baso % (Auto) Lymph # (Auto) [place] # (Auto) Eos # (Auto) Baso # (Auto) Abs Immat Gran (auto) Absolute Neuts (auto) Absolute Nucleated RBC Nucleated RBC % APTT 67.8 H Sodium Potassium Chloride Carbon Dioxide Anion Gap BUN Creatinine Estim Creat Clear Calc Estimated GFR Glucose POC Capillary Glucose 132 H Calcium Phosphorus Magnesium Total Bilirubin AST ALT Alkaline Phosphatase Troponin I Total Protein Albumin
[2025-03-28 16:06] LABS: Hematocrit 34.2 % (37.0-47.0); Hemoglobin 10.9 g/dL (12.0-15.0); Mean Corpuscular HGB Conc 31.9 g/dl (32-36); Mean Corpuscular Hemoglobin 28.2 pg (26-34); Mean Corpuscular Volume 88.4 fl (80-100); Platelet Count Result 169 k/mm3 (150-375); Red Blood Count 3.87 M/mm3 (4.2-5.4); White Blood Count 6.1 K/mm3 (4.5-10.0)
--- NOTE | 2025-03-28 16:26 | PC.NURSE ---
This patient, Ashlie Lees, was transferred to [[id number] ] on 03/28/25 at 1626. Personal belongings sent with patient. Report given to [Ynes Martin @ [phone] ]. Appropriate documentation sent with patient.
[2025-03-28] MEDS: ACETAMINOPHEN 325 MG TABLET 650 MG PO (20:22)
[2025-03-29] VITALS: BP 130/85; PULSE 67; PULSE 76; RESP 18; TEMP 36.8; O2SAT 97
[2025-03-29 02:00] VITALS: PULSE 64
[2025-03-29 04:00] VITALS: BP 148/84; PULSE 71; PULSE 81; RESP 16; TEMP 36.6; O2SAT 96
[2025-03-29 04:44] LABS: Hematocrit 34.5 % (37.0-47.0); Hemoglobin 10.9 g/dL (12.0-15.0); Mean Corpuscular HGB Conc 31.6 g/dl (32-36); Mean Corpuscular Hemoglobin 28.3 pg (26-34); Mean Corpuscular Volume 89.6 fl (80-100); Platelet Count Result 167 k/mm3 (150-375); Red Blood Count 3.85 M/mm3 (4.2-5.4); White Blood Count 6.2 K/mm3 (4.5-10.0)
[2025-03-29 05:16] LABS: Alanine Aminotransferase 29 U/L (6-35); Albumin Level 3.7 g/dL (3.5-5.1); Alkaline Phosphatase 92 U/L (38-126); Anion Gap 5 mmol/L (4-12); Aspartate Amino Transferase 71 U/L (14-36); Bilirubin,Total 0.4 mg/dL (0.2-1.3); Blood Urea Nitrogen 12 mg/dL (7-17); Calcium 8.5 mg/dL (8.4-10.2); Carbon Dioxide 24 mmol/L (22-30); Chloride 108 mmol/L (98-107); Estimated CRCL calculation 41 ml/min; Estimated Glomerular Filt Rate 51; Glucose 119 mg/dL (65-110); Magnesium 2.2 mg/dL (1.6-2.3); Potassium 4.4 mmol/L (3.4-5.0); Sodium 137 mmol/L (137-145); Total Protein 6.6 g/dL (6.3-8.2)
[2025-03-29 06:00] VITALS: PULSE 63
--- NOTE | 2025-03-29 07:55 | P.PNCA_ITS ---
Progress Note: A&P Assessment and Plan (1) Non-ST elevation [place] (NSTEMI): Code(s): I21.4 - Non-ST elevation (NSTEMI) myocardial infarction Status: Acute Assessment and Plan: This is [place]A. Troponin peaked at high level 31. EKG shows some developing Q waves inferolateral leads. No ST segment deviations. LHC with Dr. Bourgeois shows no obstructive coronaries. Echo shows EF 60-65%, mod LVH, grade I diastolic dysfunction, possible bicuspid aortic valve, mod (1.5 cm2), Continue aspirin, Rosuvastatin, Atenolol, Losartan. Start Clopidogrel 75 mg daily. May d/c home from cardiology standpoint and f/u with me in 2 weeks. (2) Chest pain: Code(s): R07.9 - Chest pain, unspecified Status: Acute Assessment and Plan: Resolving. (3) Mixed hyperlipidemia: Code(s): E78.2 - Mixed hyperlipidemia Status: Acute Assessment and Plan: On Rosuvastatin. (4) Benign essential hypertension: Code(s): I10 - Essential (primary) hypertension Status: Acute Assessment and Plan: On home BP medication. (5) Aortic stenosis: Code(s): I35.0 - Nonrheumatic aortic (valve) stenosis Status: Acute Assessment and Plan: Moderate. Subjective Date/time seen: 03/29/25 07:55 Interval history: Reports chest pain down to 0.5/10 today off NTG drip. No sob. Exam Const: General: cooperative, healthy appearing and comfortable Orientation/consciousness: oriented to person, oriented to place and oriented to time Resp: Auscultation: clear to auscultation bilaterally, no crackles, no rales, no rhonchi and no wheezes Cardio: Rate: regular rate Rhythm: regular rhythm Heart sounds: Murmur heart sound present (IV/ systolic murmur RICS) Peripheral pulses: dorsalis pedis present Neuro: General: oriented to person, oriented to place and oriented to time Extrem: Right lower extremity: no edema Left lower extremity: no edema Objective Data Vital Signs Vital Signs: Vital Signs - 24 hr 03/28/25 08:00 03/28/25 08:00 03/28/25 08:02 Temperature 98.3 F Pulse Rate 78 69 71 Respiratory Rate 18 18 Blood Pressure 161/70 H Pulse Oximetry 95 95 Oxygen Delivery Room Air Fraction of Inspired Oxygen 03/28/25 08:16 03/28/25 09:00 03/28/25 10:00 Temperature Pulse Rate 78 68 62 Respiratory Rate 16 Blood Pressure 169/51 H Pulse Oximetry 95 Oxygen Delivery Fraction of Inspired Oxygen 03/28/25 10:01 03/28/25 11:33 03/28/25 11:51 Temperature 98.7 F Pulse Rate 59 L 65 65 Respiratory Rate 19 13 13 Blood Pressure 128/76 160/58 H Pulse Oximetry 99 97 97 Oxygen Delivery Room Air Fraction of Inspired Oxygen 03/28/25 12:00 03/28/25 14:00 03/28/25 16:00 Temperature 98.8 F Pulse Rate 65 69 65 Respiratory Rate 16 Blood Pressure 154/62 H Pulse Oximetry 94 Oxygen Delivery Fraction of Inspired Oxygen 03/28/25 16:00 03/28/25 16:00 03/28/25 18:00 Temperature Pulse Rate 65 64 74 Respiratory Rate 16 Blood Pressure Pulse Oximetry 94 Oxygen Delivery Room Air Fraction of Inspired Oxygen 03/28/25 20:00 03/28/25 20:00 03/28/25 20:00 Temperature 98.1 F Pulse Rate 75 75 Respiratory Rate 16 Blood Pressure 137/58 L Pulse Oximetry 97 Oxygen Delivery Room Air Fraction of Inspired Oxygen 03/28/25 20:42 03/28/25 22:00 03/29/25 00:00 Temperature 98.2 F Pulse Rate 75 71 76 Respiratory Rate 20 18 Blood Pressure 130/85 Pulse Oximetry 90 97 Oxygen Delivery Room Air Fraction of Inspired Oxygen 21 03/29/25 00:00 03/29/25 00:00 03/29/25 02:00 Temperature Pulse Rate 67 64 Respiratory Rate Blood Pressure Pulse Oximetry Oxygen Delivery Room Air Fraction of Inspired Oxygen 03/29/25 04:00 03/29/25 04:00 03/29/25 04:00 Temperature 98 F Pulse Rate 81 71 Respiratory Rate 16 Blood Pressure 148/84 H Pulse Oximetry 96 Oxygen Delivery Room Air Fraction of Inspired Oxygen 03/29/25 06:00 Temperature Pulse Rate 63 Respiratory Rate Blood Pressure Pulse Oximetry Oxygen Delivery Fraction of Inspired Oxygen Intake/Output Intake/Output: Intake & Output 03/26/25 03/27/25 03/28/25 03/29/25 23:59 23:59 23:59 23:59 Intake Total 1216.9 1883.9 30 Output Total 900 1400 4 Balance 316.9 483.9 26 Meds/Results Medications: Active Medications Generic Name Dose Route Start Last Admin Trade Name Freq PRN Reason Stop Dose Admin Acetaminophen 650 mg 03/27/25 06:00 03/28/25 20:22 Acetaminophen 325 Mg Tablet PO 650 mg Q4H PRN Administration Mild Pain (1-3) or Fever Aspirin 81 mg 03/27/25 09:00 03/28/25 08:16 Aspirin 81 Mg Enteric Tablet PO 81 mg QAM [facility] Administration Atenolol 50 mg 03/27/25 09:00 03/28/25 08:16 Atenolol 50 Mg Tablet PO 50 mg DAILY MAKENNA Administration Clopidogrel Bisulfate 75 mg 03/29/25 09:00 Clopidogrel Bisulfate 75 Mg Tablet PO QAM [facility]1983 Dextrose 12.5 gm 03/27/25 08:34 Dextrose 50% 25 Gm/50 Ml Syringe IV PUSH PRN PRN Hypoglycemia Protocol Empagliflozin 10 mg 03/27/25 09:00 03/28/25 08:16 Empagliflozin 10 Mg Tablet PO 10 mg DAILY MAKENNA Administration Glucagon 1 mg 03/27/25 08:34 Glucagon For Inj 1 Mg Vial IM PRN PRN Hypoglycemia Protocol Glucose 15 gm 03/27/25 08:34 Glucose Oral Gel 15 Gm Of Glucse In 37.5 Gm Tube PO PRN PRN Hypoglycemia Protocol Hydralazine HCl 20 mg 03/27/25 10:06 Hydralazine Hcl 20 Mg/Ml Vial IV PUSH Q4H PRN SBP more than 160 Dextrose 1,000 mls @ 100 mls/hr 03/27/25 08:34 Dextrose 5% 1,000 Ml IVPB PRN PRN Hypoglycemia Protocol Insulin Aspart 3 - 6 units 03/27/25 08:00 03/28/25 16:26 Insulin Aspart (*Bkc) 100 Units/Ml SUB-Q Not Given TIDWM [facility] Protocol Insulin Aspart 1 - 3 units 03/27/25 21:00 03/28/25 20:15 Insulin Aspart (*Bkc) 100 Units/Ml SUB-Q Not Given HS MAKENNA Protocol Labetalol HCl 20 mg 03/27/25 10:06 Labetalol Hcl Inj 100 Mg/20 Ml Vial IV PUSH Q4H PRN SBP > 160 and HR> 60 -1st choice Losartan Potassium 25 mg 03/27/25 09:00 03/28/25 08:16 Losartan Potassium 25 Mg Tablet PO 25 mg DAILY MAKENNA Administration Nitroglycerin 0.4 mg 03/27/25 04:12 03/27/25 04:19 Nitroglycerin Sl 0.4 Mg Tablet SUBLINGUAL 0.4 mg ONCE PRN Administration Pain Rated 6 or Greater Pantoprazole Sodium 40 mg 03/27/25 09:00 03/28/25 08:16 Pantoprazole 40 Mg Tablet PO 40 mg QAM [facility] Administration Rosuvastatin Calcium 40 mg 03/27/25 09:00 03/28/25 08:15 Rosuvastatin 20 Mg Tablet PO 40 mg QAM MAKENNA Administration Radiology Results: ITS Impressions Chest X-Ray 03/27/25 06:19 IMPRESSION: 1. No acute cardiopulmonary findings. Chest/Abdomen/Pelvis CTA 03/27/25 07:27 IMPRESSION: 1. Aortic atherosclerosis. No aneurysm or dissection. 2. Moderate-sized sliding hiatal hernia. Labs Labs: Laboratory Results - last 24 hr 03/28/25 03/28/25 03/28/25 07:50 09:59 11:31 WBC 6.6 RBC 3.97 L Hgb 11.2 L Hct 35.5 L MCV 89.4 MCH 28.2 MCHC 31.5 L RDW 13.8 Plt Count 169 MPV 9.5 APTT 67.8 H Sodium Potassium Chloride Carbon Dioxide Anion Gap BUN Creatinine Estim Creat Clear Calc Estimated GFR Glucose POC Capillary Glucose 132 H Calcium Phosphorus Magnesium Total Bilirubin AST ALT Alkaline Phosphatase Total Protein Albumin 03/28/25 03/28/25 03/28/25 15:58 16:05 20:04 WBC 6.1 RBC 3.87 L Hgb 10.9 L Hct 34.2 L MCV 88.4 MCH 28.2 MCHC 31.9 L RDW 13.8 Plt Count 169 MPV 9.3 APTT Sodium Potassium Chloride Carbon Dioxide Anion Gap BUN Creatinine Estim Creat Clear Calc Estimated GFR Glucose POC Capillary Glucose 112 H 152 H Calcium Phosphorus Magnesium Total Bilirubin AST ALT Alkaline Phosphatase Total Protein Albumin 03/29/25 03/29/25 04:06 07:24 WBC 6.2 RBC 3.85 L Hgb 10.9 L Hct 34.5 L MCV 89.6 MCH 28.3 MCHC 31.6 L RDW 13.8 Plt Count 167 MPV 9.8 APTT Sodium 137 Potassium 4.4 Chloride 108 H Carbon Dioxide 24 Anion Gap 5 BUN 12 Creatinine 1.06 H Estim Creat Clear Calc 41 Estimated GFR 51 L Glucose 119 H POC Capillary Glucose 122 H Calcium 8.5 Phosphorus 3.5 Magnesium 2.2 Total Bilirubin 0.4 AST 71 H ALT 29 Alkaline Phosphatase 92 Total Protein 6.6 Albumin 3.7
[2025-03-29 08:00] VITALS: BP 151/71; PULSE 75; RESP 18; TEMP 36.8; O2SAT 97
--- NOTE | 2025-03-29 09:54 | PM.DS ---
DS: Admitting Diagnosis Discharge Date 03/29/25 Admitting Diagnosis - NSTEMI - hypertension - T2DM - Diastolic CHF DS: Discharge Diagnosis Discharge Diagnosis (1) Non-ST elevation [place] (NSTEMI): Code(s): I21.4 - Non-ST elevation (NSTEMI) myocardial infarction Status: Acute (2) Hypertension: Qualifiers: Hypertension type: primary hypertension Qualified Code(s): I10 - Essential (primary) hypertension Code(s): I10 - Essential (primary) hypertension Status: Acute (3) Diabetes mellitus with chronic kidney disease: Code(s): E11.22 - Type 2 diabetes mellitus with diabetic chronic kidney disease Status: Acute (4) Diastolic congestive heart failure: Onset Date: ~03/2023 Qualifiers: Heart failure chronicity: chronic Qualified Code(s): I50.32 - Chronic diastolic (congestive) heart failure Code(s): I50.30 - Unspecified diastolic (congestive) heart failure Status: Acute DS: Summary Hospital Course Reason for hospitalization: - NSTEMI - hypertension - T2DM - Diastolic CHF Hospital Course: Patient is a 74-year-old female with history of obesity class 2, diabetes mellitus without current long-term use of insulin with chronic kidney disease, aortic stenosis, hypertension, dyslipidemia, anxiety presents to [facility] ER on 03/27/2025 in the ER in the morning complaining of chest pain. In the ED, trop I 2.69. Patient emergently taken to [facility]. by Findings: Left main normal Lad normal vessel with no obstructive disease. Left circumflex gives rise to OM branches with no obstructive disease RCA dominant vessel no obstructive disease Patient's symptoms attributed to [place]. Troponin trended up and peaked at 31.9, repeat trending down. Patient was started on a heparin and nitro gtt s/p cath due to continued chest pain. Echo showed EF 60-65%, grade 1 diastolic dysfunction, moderate aortic valve stenosis with possible bicuspid aortic valve. Patient's chest pain subsequently resolved. Patient developed significant bruising surrounding catheterization access site and heparin was stopped. Hemoglobin remained stable. Site remained soft and free of hematoma or pain. Cardiology cleared patient for discharge recommended to continue aspirin, Plavix, statin on discharge. Continue home atenolol. Follow-up with cardiology as outpatient in 2 weeks. Patient was chest pain free on day of discharge. Patient will resume her home regimen for diabetes and diastolic CHF. She was discharged home in stable condition. Status at Discharge Overall status at discharge: patient is back to baseline Time Spent with Patient Time attestation: Total time spent providing and/or coordinating discharge services: Time spent: Greater than 30 minutes Exam Narrative: General: NAD Eyes: EOMI ENT: neck supple Cardiovascular: Regular rate and rhythm. R groin site with significant surrounding bruising, soft with no tenderness Respiratory: Clear to auscultation, respirations even and unlabored on RA Gastrointestinal: Soft, non tender Genitourinary: no suprapubic tenderness Musculoskeletal: No edema Skin: warm, dry Neuro: Alert. Psych: Mood appropriate DS: Data Data Completed and Pending Completed studies during hospitalization: ITS Impressions Chest X-Ray 03/27/25 06:19 IMPRESSION: 1. No acute cardiopulmonary findings. Chest/Abdomen/Pelvis CTA 03/27/25 07:27 IMPRESSION: 1. Aortic atherosclerosis. No aneurysm or dissection. 2. Moderate-sized sliding hiatal hernia. Labs on day of discharge: Labs from last 24 hours 03/29/25 03/29/25 03/28/25 07:24 04:06 20:04 WBC 6.2 RBC 3.85 L Hgb 10.9 L Hct 34.5 L MCV 89.6 MCH 28.3 MCHC 31.6 L RDW 13.8 Plt Count 167 MPV 9.8 Sodium 137 Potassium 4.4 Chloride 108 H Carbon Dioxide 24 Anion Gap 5 BUN 12 Creatinine 1.06 H Estim Creat Clear Calc 41 Estimated GFR 51 L Glucose 119 H POC Capillary Glucose 122 H 152 H Calcium 8.5 Phosphorus 3.5 Magnesium 2.2 Total Bilirubin 0.4 AST 71 H ALT 29 Alkaline Phosphatase 92 Total Protein 6.6 Albumin 3.7 03/28/25 03/28/25 03/28/25 16:05 15:58 11:31 WBC 6.1 RBC 3.87 L Hgb 10.9 L Hct 34.2 L MCV 88.4 MCH 28.2 MCHC 31.9 L RDW 13.8 Plt Count 169 MPV 9.3 Sodium Potassium Chloride Carbon Dioxide Anion Gap BUN Creatinine Estim Creat Clear Calc Estimated GFR Glucose POC Capillary Glucose 112 H 132 H Calcium Phosphorus Magnesium Total Bilirubin AST ALT Alkaline Phosphatase Total Protein Albumin 03/28/25 09:59 WBC 6.6 RBC 3.97 L Hgb 11.2 L Hct 35.5 L MCV 89.4 MCH 28.2 MCHC 31.5 L RDW 13.8 Plt Count 169 MPV 9.5 Sodium Potassium Chloride Carbon Dioxide Anion Gap BUN Creatinine Estim Creat Clear Calc Estimated GFR Glucose POC Capillary Glucose Calcium Phosphorus Magnesium Total Bilirubin AST ALT Alkaline Phosphatase Total Protein Albumin Preliminary micro results at discharge 03/27/25 12:28 - Preliminary Unspecified Urine Discharge Plan Discharge Attending physician on discharge: Cora Grant Consulting providers: Aris Ahumada; Mrak Bourgeosi; Gigi Tomas; Kendra Vanessa Discharging Clinician: Kendra Vanessa Anticipated Discharge Date/Time: 03/29/25 09:40 Patient Disposition: Home Activity: may shower and other - see discharge instructions Diet: regular and heart healthy Wound Care Instructions: incision open to air Discharge Instructions: Monitor cath site for signs of bleeding, worsening swelling or pain. Call Dr. Ahumada's office with any concerns. No lifting more than 15 lbs for 7 days. OK to shower, but no tub soaks for 7 days. You have been started on Plavix and aspirin to prevent blockages in the arteries. These are blood thinning medications. Side effects include bleeding. Monitor for signs of bleeding including dark stools, blood in the stool or urine. While in the hospital, your blood pressure was running on the high side. Obtain a blood pressure cuff and check your blood pressure 1-2 times daily. Keep a log to bring to your follow-up appointments to determine if your blood pressure medication needs to be increased. Follow-up with Dr. Ahumada in 2 weeks. Follow-up with your primary care provider in 1 week. Patient Instructions: Antibiotic Form, Clopidogrel (By mouth), Heart Catheterization (DC), Angio-Seal (DC) Patient Language: Romansh Stand Alone Forms: General Discharge Information Follow-up/Referrals: Dayan Nuñez NP [Primary Care Provider, Family Practice] - Call for Appointment Referral Note: 1 week Aris Ahumada DO [Physician, Cardiology] - Call for Appointment Referral Note: 2 weeks Discharge Medications: New clopidogrel 75 mg Tablet 75 mg PO QAM 30 Days Qty: 30 0RF aspirin 81 mg Tablet,Delayed Release (Dr/Ec) 81 mg PO QAM 30 Days Qty: 30 0RF Continued mecobalamin (vitamin B12) 5,000 mcg tablet,disintegrating 5,000 mcg PO HS tramadol 50 mg tablet 50 mg PO DAILY PRN (Reason: pain) Qty: 30 0RF Prolia 60 mg/mL syringe 60 mg subcut [id number] Qty: 1 0RF sumatriptan succinate 25 mg tablet See Rx Instructions PO .COMPLEX Qty: 10 0RF Rx Instructions: take 1 tab at onset of headache; if no relief may repeat 1 tab after at least 2 hrs; max = 4 tabs/24 hr PO atenolol 50 mg tablet 50 mg PO DAILY Qty: 90 1RF losartan 25 mg tablet 25 mg PO DAILY Qty: 90 3RF trazodone 150 mg tablet 150 mg PO QHS PRN (Reason: insomnia) Qty: 90 1RF rosuvastatin 40 mg tablet 40 mg PO QHS Qty: 90 1RF omeprazole 40 mg capsule,delayed release(DR/EC) 40 mg PO QHS Qty: 90 1RF citalopram 40 mg tablet 40 mg PO QHS Qty: 90 1RF calcium carbonate [Calcium 600] 600 mg calcium (1,500 mg) tablet 600 mg PO BID Qty: 180 0RF cholecalciferol (vitamin D3) 50 mcg (2,000 unit) capsule 50 mcg PO DAILY Qty: 90 0RF Jardiance 10 mg tablet 10 mg PO DAILY Qty: 90 1RF Date of admission: 03/28/25 12:49 Primary Care Provider: Dayan Nuñez Admitting Provider: Roni Fajardo Attending physician on admission: Roni Fajardo Condition: Stable
[2025-03-29 09:57] VITALS: PULSE 72
[2025-03-29] MEDS: ROSUVASTATIN 20 MG TABLET 40 MG PO (09:57)
[2025-03-29] MEDS: PANTOPRAZOLE 40 MG TABLET PO (09:57)
[2025-03-29] MEDS: CLOPIDOGREL BISULFATE 75 MG TABLET PO (09:57)
[2025-03-29] MEDS: EMPAGLIFLOZIN 10 MG TABLET PO (09:57)
[2025-03-29] MEDS: ASPIRIN 81 MG ENTERIC TABLET PO (09:58)
[2025-03-29] MEDS: LOSARTAN POTASSIUM 25 MG TABLET PO (09:58)
== END 2025-03-29 11:48 | disposition home or self-care (01) | DRG 281 ==
LOC: ANHED 06:32 → ANHICU 06:36 → ANHIMU 03-28 16:27
PROVIDERS: Internal Medicine; Internal Medicine Cardiovascular Disease; Internal Medicine Interventional Cardiology; Admitting Provider Internal Medicine; Emergency Provider Student in an Organized Health Care Education/Training Program; PCP Nurse Practitioner Family; Visit Provider Physician Assistant
PROC: 4A023N7 Measurement of Cardiac Sampling and Pressure, Left Heart, Percutaneous Approach (ICD-10-PCS; CPT 93452; principal; 2025-03-27 07:20)
PROC: 4A023N7 Measurement of Cardiac Sampling and Pressure, Left Heart, Percutaneous Approach (ICD-10-PCS; 2025-03-27 07:20)
DX: I21.B Myocardial infarction with coronary microvascular dysfunction (principal); I13.0 Hypertensive heart and chronic kidney disease with heart failure and stage 1 through stage 4 chronic kidney disease, or unspecified chronic kidney disease; I50.32 Chronic diastolic (congestive) heart failure; I97.630 Postprocedural hematoma of a circulatory system organ or structure following a cardiac catheterization; I35.0 Nonrheumatic aortic (valve) stenosis; E11.22 Type 2 diabetes mellitus with diabetic chronic kidney disease; E78.5 Hyperlipidemia, unspecified; E66.812 Obesity, class 2; M85.80 Other specified disorders of bone density and structure, unspecified site; M15.9 Polyosteoarthritis, unspecified; F41.9 Anxiety disorder, unspecified; Z20.822 Contact with and (suspected) exposure to COVID-19; Z68.38 Body mass index [BMI] 38.0-38.9, adult
CPT/HCPCS: 36415; 71046; 71275; 74174; 80053; 81001; 82010; 82948; 83036; 83690; 83735; 83880; 84100; 84484; 85025; 85027; 85380; 85610; 85730; 87086; 87637; 87641; 93005; 93458; 96374; 99291; A9270; C1760; C1887; C1894; C8929; G0269; G0378; J1644; J1650; J2003; J2250; J2270; J2305; J3010; J7040; J7060; J7120; Q9957; Q9967

== ENCOUNTER 2025-05-31 10:51 | Outpatient (CLI) | payer MEDICARE, BC, SELFPAY ==
[2025-05-31 18:59] LABS: Albumin Level 4.4 g/dL (3.5-5.1); Anion Gap 3 mmol/L (4-12); Blood Urea Nitrogen 10 mg/dL (7-17); Calcium 9.2 mg/dL (8.4-10.2); Carbon Dioxide 27 mmol/L (22-30); Chloride 108 mmol/L (98-107); Estimated Glomerular Filt Rate 49; Glucose 118 mg/dL (65-110); Potassium 4.2 mmol/L (3.4-5.0); Sodium 138 mmol/L (137-145)
[2025-05-31 19:01] LABS: Total Protein Urine Random 12 mg/dL; Ur Ttl Prot Creatinine Ratio 0.10 mg/mg (0-0.20)
[2025-05-31 19:09] LABS: Parathyroid Intact 57.7 pg/mL (14.5-75.2)
== END 2025-05-31 10:52 | disposition home or self-care (01) ==
LOC: ANHGOSHLAB 10:53
PROVIDERS: PCP Nurse Practitioner Family; Visit Provider Internal Medicine Nephrology
DX: E11.22 Type 2 diabetes mellitus with diabetic chronic kidney disease (principal); I12.9 Hypertensive chronic kidney disease with stage 1 through stage 4 chronic kidney disease, or unspecified chronic kidney disease; N18.32 Chronic kidney disease, stage 3b; N25.81 Secondary hyperparathyroidism of renal origin; E55.9 Vitamin D deficiency, unspecified
CPT/HCPCS: 36415; 80069; 82306; 82570; 83970; 84156